=== PATIENT | female | born 1935 | race Caucasian/White ===

== ENCOUNTER 2017-10-11 10:54 | Outpatient (CLI) | payer MEDICARE, BC ==
--- NOTE | 2017-10-11 13:21 | XRAY Report ---
Procedure Date: 10/11/2017 Accession Number: [id number] / [id number] Procedure: XRS - Ribs w/PA Chest LT CPT Code: FULL RESULT: EXAM: Ribs w/PA Chest LT DATE: 10/11/2017 11:16 AM CLINICAL HISTORY: R07.81 COMPARISON: Chest x-ray 12/06/2013 TECHNIQUE: 1 view of the chest and 2 views of the ribs. FINDINGS: Bones: There is a nondisplaced fracture of the left ninth rib laterally. Some callus formation is present. Lungs: No focal opacities. No pneumothorax or pleural effusions. Mediastinum: Mild cardiomegaly. Stable left subclavian pacemaker. Other: None. IMPRESSION: Nondisplaced fracture of the left ninth rib laterally. No pneumothorax. RADIA
== END 2017-10-11 10:55 | disposition home or self-care (01) ==
LOC: DI.S 10:54
PROVIDERS: ATTEND Nurse Practitioner Family
DX: S22.32XA Fracture of one rib, left side, initial encounter for closed fracture (principal); R07.81 Pleurodynia; R10.9 Unspecified abdominal pain

== ENCOUNTER 2017-11-30 08:59 | Outpatient (CLI) | payer MEDICARE, BC | END 2017-11-30 09:00 | disposition home or self-care (01) | LOC: LAB.F 08:59 | PROVIDERS: ATTEND Registered Nurse | DX: I48.91 Unspecified atrial fibrillation (principal); E55.9 Vitamin D deficiency, unspecified; D75.1 Secondary polycythemia; R73.01 Impaired fasting glucose; G60.9 Hereditary and idiopathic neuropathy, unspecified; E02 Subclinical iodine-deficiency hypothyroidism; Z78.0 Asymptomatic menopausal state | CPT/HCPCS: 36415; 81599; 83735; 84630 ==

== ENCOUNTER 2018-01-24 14:07 | Outpatient (CLI) | payer MEDICARE, BC ==
--- NOTE | 2018-01-24 15:09 | XRAY Report ---
Reason: RT FOOT DIGIT SWELLING REDDNESS Procedure Date: 01/24/2018 Accession Number: [id number] / [id number] Procedure: XR - Foot 3 View RT CPT Code: FULL RESULT: EXAM: RIGHT FOOT RADIOGRAPHY EXAM DATE: 01/24/2018 02:24 PM. CLINICAL HISTORY: RT FOOT SWELLING REDDNESS. COMPARISON: 08/11/2006. TECHNIQUE: 3 views. FINDINGS: Bones: No fractures detail of the toes, particularly the second and third is poorly seen. Small plantar calcaneal spur Joints: Degenerative changes of the interphalangeal joints of the toes. Soft Tissues: Mild diffuse soft tissue swelling. Faint calcification adjacent to the medial first metatarsal head. IMPRESSION: Degenerative change right foot progressed since 08/11/2006. Detail of the toes, particularly the second and third, is poorly seen. If clinical symptoms are referable to the toes follow up by detailed plain films of the toes may be useful.
== END 2018-01-24 14:08 | disposition home or self-care (01) ==
LOC: DI 14:07
PROVIDERS: ATTEND Nurse Practitioner Family
DX: M19.071 Primary osteoarthritis, right ankle and foot (principal)

== ENCOUNTER 2018-01-25 15:06 | Outpatient (CLI) | payer MEDICARE, BC ==
--- NOTE | 2018-01-26 00:58 | XRAY Report ---
Reason: RIGHT TOE SWELLING AND PAIN Procedure Date: 01/25/2018 Accession Number: [id number] / [id number] Procedure: XR - Toe(s) RT CPT Code: FULL RESULT: EXAM: RIGHT TOE RADIOGRAPHY EXAM DATE: 01/25/2018 03:52 PM. CLINICAL HISTORY: RIGHT TOE SWELLING AND PAIN. COMPARISON: FOOT 3 VIEW RT 01/24/2018 2:14 PM. TECHNIQUE: 3 views. FINDINGS: Bones: Normal. No fracture or bone lesion. Joints: Normal. No subluxations. Soft Tissues: Moderate right second and third toe soft tissue swelling noted. No radiopaque foreign bodies are noted. IMPRESSION: 1. No fracture. 2. No malalignment. 3. No subcutaneous soft tissue emphysema. No radiopaque foreign bodies. Moderate right second and third toe swelling. 4. No radiographic findings concerning for osteomyelitis. RADIA
== END 2018-01-25 15:07 | disposition home or self-care (01) ==
LOC: DI 15:06
PROVIDERS: ATTEND Nurse Practitioner Family
DX: M79.674 Pain in right toe(s) (principal); R22.41 Localized swelling, mass and lump, right lower limb
CPT/HCPCS: 73660

== ENCOUNTER 2018-03-29 10:48 | Outpatient (CLI) | payer MEDICARE, BC | END 2018-03-29 10:49 | disposition short-term general hospital (02) | LOC: EMS 10:48 | PROVIDERS: ATTEND Surgery | DX: R06.02 Shortness of breath (principal); R07.81 Pleurodynia | CPT/HCPCS: A0425; A0427 ==

== ENCOUNTER 2018-06-15 12:17 | Outpatient (CLI) | payer MEDICARE, BC ==
[2018-06-15 12:41] LABS: CALCIUM 10.4 mg/dL (8.5-10.3)
== END 2018-06-15 12:18 | disposition home or self-care (01) ==
LOC: LAB 12:17
PROVIDERS: ATTEND Internal Medicine Cardiovascular Disease
DX: Z51.81 Encounter for therapeutic drug level monitoring (principal); Z79.899 Other long term (current) drug therapy
CPT/HCPCS: 36415; 80048

== ENCOUNTER 2018-12-13 16:23 | Emergency (ER) | payer MEDICARE, BC ==
[2018-12-13 16:48] VITALS: BP 132/76
--- NOTE | 2018-12-13 17:37 | XRAY Report ---
Reason: fall Procedure Date: 12/13/2018 Accession Number: [id number] / [id number] Procedure: XR - Knee 4 View LT CPT Code: FULL RESULT: EXAM: LEFT KNEE RADIOGRAPHY EXAM DATE: 12/13/2018 05:13 PM. CLINICAL HISTORY: Fall. COMPARISON: None. TECHNIQUE: 3 views. FINDINGS: Left total knee arthroplasty hardware in place. Components in good position. No hardware complications. No periprosthetic fractures. Diffuse decreased osseous mineralization subjectively. No significant soft tissue abnormalities identified radiographically. IMPRESSION: 1. No fractures or malalignment. 2. Left total knee arthroplasty in place without evidence of complications. 3. Diffuse decreased osseous mineralization subjectively. RADIA
--- NOTE | 2018-12-13 17:55 | ED Physician Documentation ---
PD HPI LOWER EXT INJURY - Stated complaint Stated Complaint: LT KNEE PX/RED/SWELL - Chief complaint Chief Complaint: Ext Problem - History obtained from History obtained from: Patient - History of Present Illness PD HPI LOW EXT INJURY LOCATION: Left, Knee Type of injury: Fall (she fell onto her left knee with bruise there and swelling. The bruising spread down front of leg and medial calf over next days. Has continued with swelling in anterior knee. Now with 1-2 days of redness and warmth, tender in anterior knee. Seen by PCP and referred to ER for further evaluation. Patient says knee hurts anteriorly with ROM.) Timing - onset: How many days ago (few) Timing - duration: Days (few) Timing - details: Abrupt onset (of the hematoma initially), Gradual onset (of diffuse bruising and now the redness anteriorly) Worsened by: Moving, Palpating Associated symptoms: Swelling, Discolored. No: Weakness, Numbness Contributing factors: Anticoagulated Similar symptoms before: Has not had sx before Recently seen: Clinic (went to clinic and referred to ER) Review of Systems Constitutional: denies: Fever, Chills, Myalgias Skin: denies: Abrasion (s), Laceration (s) Neurologic: denies: Focal weakness, Numbness, Altered mental status, Headache, Head injury PD PAST MEDICAL HISTORY - Past Medical History Past Medical History: Yes Cardiovascular: Hypertension, Coronary artery disease, CT - Past Surgical History Past Surgical History: Yes Cardiovascular: Coronary stent, Pacemaker - Present Medications Home Medications: Ambulatory Orders Medication Instructions Recorded Confirmed Fluticasone 44 Mcg [Flovent] 1 puffs INH BID 12/06/13 07/25/18 Losartan [Cozaar] 100 mg PO DAILY 12/06/13 07/25/18 Spironolactone 12.5 mg PO DAILY 12/06/13 07/25/18 Tiotropium [place] [Spiriva] 2 puffs INH DAILY 12/06/13 07/25/18 Aspirin [Adult Low Dose Aspirin EC] 1 tab PO DAILY 07/12/17 07/25/18 Rivaroxaban [Xarelto] 1 tab PO DAILY 07/12/17 07/25/18 Furosemide [Lasix] 40 mg PO DAILY 07/25/18 07/25/18 - Allergies Allergies/Adverse Reactions: Allergies Allergy/AdvReac Type Severity Reaction Status Date / Time alprazolam [From Xanax] Allergy Unknown Verified 12/13/18 16:48 - Social History Does the pt smoke?: No Smoking Status: Never smoker Does the pt drink ETOH?: No Does the pt have substance abuse?: No - Immunizations Immunizations are current?: Yes PD ED PE NORMAL - Vitals Vital signs reviewed: Yes - General General: Alert and oriented X 3, No acute distress, Well developed/nourished - HEENT HEENT: Atraumatic - Neck Neck: Supple, no meningeal sign, No bony TTP - Derm Derm: Normal color, Warm and dry - Extremities Extremities: Other (left knee with anterior swelling and tender with marked bruising. There is redness and warmth anteriorly in [place] around bursal area. Redness does not extend beyond that. Has warmth to it. No red streaks upward. There is nontender ecchymosis down anterior and medial to posterior aspect of lower leg as well, c/w gravity effect from the knee hematoma/bruise. There is no effusion of the knee joint itself. ) - Neuro Neuro: Alert and oriented X 3, No motor deficit, No sensory deficit Results - Vitals Vitals: Vital Signs - 24 hr 12/13/18 16:45 Temperature 36.6 C Heart Rate 73 Respiratory 18 Rate Blood Pressure 132/76 H O2 Saturation 86 L Oxygen O2 Source Room air - Labs Labs: Microbiology 12/13/18 18:38 Wound Culture - Preliminary Knee - Left - Rads (name of study) knee xray Radiology: Prelim report reviewed (knee replacement intact, no fractures. ), See rad report PD MEDICAL DECISION MAKING - ED course Complexity details: reviewed results (I tried aspirating from the prepatellar bursa but could not get out but 2 drops of dark blood, so c/w hematoma there. I did culture that. Seems c/w prepatellar inflammatory bursitis and not infection as the redness/warmth is localized roundly in the bursal area. ), considered differential (significant bruising around knee, and down to front of leg and calf area. There is hematoma feeling prepatellar area. There is localized redness and warmth in prepatellar area. No joint effusion, but has swelling/hematoma in prepatellar bursa. ), d/w patient Departure - Departure Disposition: 01 Home, Self Care Clinical Impression: Anticoagulant long-term use Accidental fall Qualifiers: Encounter type: initial encounter Qualified Code(s): W19.XXXA - Unspecified fall, initial encounter Traumatic hematoma of left knee Qualifiers: Encounter type: initial encounter Qualified Code(s): S80.02XA - Contusion of left knee, initial encounter Prepatellar bursitis Qualifiers: Laterality: left Qualified Code(s): M70.42 - Prepatellar bursitis, left knee Condition: Stable Record reviewed to determine appropriate education?: Yes Instructions: ED Bursitis, ED Hematoma Follow-Up: Carri Kate PA [Primary Care Provider] - Comments: I think this has the appearance of a inflammatory bursitis related to the injury and hematoma that you have. We will see if the culture shows any signs of infection over the next couple of days. I would treat it with an [place] wrap to reduce the swelling. Continue usual medications. Elevate and rested often. If in the next couple of days it does have further increasing swelling redness and particularly redness outside of the boundaries of the front of the knee, and certainly any fevers, then that would be more suspicious for infection and return for recheck. Discharge Date/Time: 12/13/18 18:56
[2018-12-13] MEDS ORDERED: LIDOCAINE MPF 1%-EPI 1:200000 30 ML VIAL SUBQ STA (18:11)
== END 2018-12-13 18:56 | disposition home or self-care (01) ==
LOC: ED 16:23
DX: M70.42 Prepatellar bursitis, left knee (principal); S80.02XA Contusion of left knee, initial encounter; W18.30XA Fall on same level, unspecified, initial encounter; Y93.01 Activity, walking, marching and hiking; Z79.01 Long term (current) use of anticoagulants; Z79.82 Long term (current) use of aspirin; I10 Essential (primary) hypertension; Z96.652 Presence of left artificial knee joint
CPT/HCPCS: 20610; 87070; 87205

== ENCOUNTER 2019-01-26 13:38 | Outpatient (CLI) | payer MEDICARE, BC ==
--- NOTE | 2019-01-26 14:32 | Mammography Report ---
Reason: L BREAST CANCER Procedure Date: 01/26/2019 Accession Number: [id number] / [id number] Procedure: VIKTOR - Diagnostic Dig Bilat CPT Code: FULL RESULT: EXAM: Diagnostic Dig Bilat DATE: 01/26/2019 2:15 PM CLINICAL HISTORY: Diagnostic examination. History of late childbearing and early menses. Personal history of breast cancer status post left breast lumpectomy in May of 2017. TECHNIQUE: (B) - Bilateral CC and MLO views were obtained. Left spot CC, left LM and left spot LM images are obtained. COMPARISON: 05/10/2017 through 07/05/2009. PARENCHYMAL PATTERN: (D) - The breast(s) demonstrate(s) heterogeneously dense fibroglandular parenchyma. FINDINGS: Interval postsurgical changes are seen in the left breast, probably benign. What is felt to represent cardiac pacemaker leads is partially seen projecting over the left chest wall. There are no suspicious masses, calcifications, or areas of distortion. IMPRESSION: Probably Benign. BI-RADS category 3. RECOMMENDATION: (6MOS) - Recommend 6 month follow-up exam. Left breast. BI-RADS CATEGORY: (3) - Probably Benign. STANDARD QUALIFYING STATEMENTS: 1. This examination was not reviewed with the aid of Computer-Aided Detection (CAD). 2. A negative or benign imaging report should not preclude biopsy if clinically suspicious findings are present. 3. Dense breasts may obscure an underlying neoplasm. 4. This examination was reviewed with the aid of 3D breast imaging (tomosynthesis).
== END 2019-01-26 13:39 | disposition home or self-care (01) ==
LOC: DI 13:38
PROVIDERS: ATTEND Internal Medicine Hematology & Oncology
DX: C50.912 Malignant neoplasm of unspecified site of left female breast (principal); Z95.0 Presence of cardiac pacemaker
CPT/HCPCS: 77066

== ENCOUNTER 2019-03-02 13:26 | Outpatient (CLI) | payer MEDICARE, BC ==
--- NOTE | 2019-03-03 21:34 | XRAY Report ---
Reason: PAIN IN LEFT FOOT Procedure Date: 03/02/2019 Accession Number: [id number] / [id number] Procedure: XRS - Foot 3 View LT CPT Code: Final Report FULL RESULT: EXAM: LEFT FOOT RADIOGRAPHY EXAM DATE: 03/02/2019 01:42 PM. CLINICAL HISTORY: Pain in left foot. COMPARISON: LT FOOT 11/30/2006 8:59 PM XR BILAT FOOT 3 VIEWS 08/11/2006 1:35 PM. TECHNIQUE: 3 views. FINDINGS: Bones: Normal. No fractures or bone lesions. Joints: Mild degenerative changes at the first metatarsophalangeal joint with joint space loss and small subchondral cyst and/or periarticular erosions. No subluxations. Soft Tissues: Normal. No soft tissue swelling. IMPRESSION: 1. No acute abnormality seen in the left foot. 2. Mild arthritic changes of the first MTP joint with questionable small periarticular erosions. Gout arthritis not excluded in the proper clinical setting. RADIA
== END 2019-03-02 13:27 | disposition home or self-care (01) ==
LOC: DI.S 13:26
PROVIDERS: ATTEND Physician Assistant
DX: M19.072 Primary osteoarthritis, left ankle and foot (principal)

== ENCOUNTER 2020-03-11 16:30 | Outpatient (CLI) | payer MEDICARE, BC ==
--- NOTE | 2020-03-11 17:08 | XRAY Report ---
PROCEDURE: Toe(s) LT INDICATIONS: PAIN OF TOE OF LEFT FOOT TECHNIQUE: AP view of the foot and 2 views of the second toe. COMPARISON: Left foot radiographs 03/02/2019 FINDINGS: Bones: There is stenosis osteopenia. Irregularity at the medial aspect of the second middle phalanx a nd the distal phalanx adjacent to the distal interphalangeal joint are suspicious for a minimally dis placed fractures in the setting of trauma. However, the second toe is held in flexion throughout the exam, which compromises evaluation. A small os naviculare is present. Soft tissues: No suspicious soft tissue densities. Soft tissue edema is seen in the second toe. IMPRESSION: Osseous irregularity at the medial aspect of the second middle and distal phalanges adjacent to the d istal interphalangeal joint is suspicious for minimally displaced fractures. Reviewed by: Yanick Singh MD on 03/11/2020 4:06 PM [facility] Approved by: Yanick Singh MD on 03/11/2020 4:06 PM [facility] Station ID: [id number]
== END 2020-03-11 16:31 | disposition home or self-care (01) ==
LOC: DI.S 16:30
PROVIDERS: ATTEND Physician Assistant
DX: R93.6 Abnormal findings on diagnostic imaging of limbs (principal)

== ENCOUNTER 2020-04-14 14:00 | Outpatient (CLI) | payer MEDICARE, BC ==
--- NOTE | 2020-04-14 18:00 | CONSULTATION NOTE ---
Palliative Care Consultation - Referral Referring Provider: Aleja DANGELO Time of Visit: [id number] Referral setting: Home Referral Reason: COPD/CHF/Breast CA - Information Sources Records reviewed: Previous records reviewed History/Review of Systems obtained from: Patient Exam limitations: No limitations - History of Present Illness Brief History of Present Illness: This is a germaine 84-year-old woman who presents with multiple comorbidities, most impacting her quality of life is her COPD and CHF. She has had ongoing functional decline over the last year, more acutely over the last several months. She has been impacted by 2 exacerbations of gout, and recently titrated off prednisone. She has been focusing on improving her underlying wellbeing, is currently on a nutritional supplement, with intentional weight loss of 10 pounds over 2 months. Her activity tolerance is most impacted by her dyspnea and tachycardia, she is oxygen dependent, and limited to sustained ambulation of 15 to 20 feet, needing frequent rest periods with stair climbing, but currently is still able to manage her ADLs with pacing. Patient recently had to give up driving, she does have neighbors/caregiver who provides support for errands and transportation particularly in the context of the pandemic. She does have 2 [place], [place], but, and provide her support frequently and stay. She does have 2 nieces who are close by, and identifies Melisa Mann as her DPOA. Palliative care meeting with patient for first time, to establish rapport, review symptom burden, and explore goals of care and advance care planning. Medical/Surgical History - Past Medical History Cardiovascular: reports: Congestive heart failure, Hypertension, Coronary artery disease, [place] ([place]stem[place] 2007), Atrial fibrillation Respiratory: reports: COPD, Sleep apnea, CPAP use Neuro: Peripheral neuropathy (idiopathic), Other (PHN) PAIRER SUBSTANDARD: reports: Breast cancer : reports: Incontinence, Renal insuffiency HEENT: reports: Chronic vision loss, Macular degeneration, Other (rhinitis) Musculoskeletal: reports: Osteoarthritis, Gout (recent exacerbation treate with prednisone), Other (recent left toe fx) MRSA Hx?: No Other Past Medical History: polycythemia; followed by Dr. Ward pulmonology; Dr. Ramos cardiology; Dr. Chavez oncology - Past Surgical History Ortho: reports: Knee replacement (both) /PAIRER SUBSTANDARD: reports: Other (lumpectumy left breast) Cardiovascular: reports: Coronary stent, Pacemaker, Other (cardiac ablation) Social History - Living Situation Living arrangement: At home Living Situation: Alone Support System: Patient lives independently in her home but she builds in [place], she has been on [facility] since [facility]. She came from the [facility] after her . 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 She does have nearby neighbors who to provide support, and frequent community support that checks on her. Family History - Family History Family History: Mother: , CVA/TIA (age 74), Hypertension, Father: , Cancer (colon ca 88), Sister: Alive and Well Family History Comment/Other: 2 daughters alive and well Medications/Allergies - Medications Home Medications: Ambulatory Orders Medication Instructions Recorded Confirmed Losartan [Cozaar] 100 mg PO DAILY 12/06/13 04/17/20 Spironolactone 12.5 mg PO DAILY 12/06/13 04/17/20 Tiotropium [place] [Spiriva] 2 puffs INH DAILY 12/06/13 04/17/20 Aspirin [Adult Low Dose Aspirin EC] 1 tab PO DAILY 07/12/17 04/17/20 Rivaroxaban [Xarelto] 15 mg PO DAILY 07/12/17 04/17/20 Furosemide [Lasix] 60 mg PO DAILY 07/25/18 04/17/20 Budesonide-Formoterol 1 puffs INH DAILY 04/17/20 - Allergies Allergies/Adverse Reactions: Allergies Allergy/AdvReac Type Severity Reaction Status Date / Time alprazolam [From Xanax] Allergy Unknown Verified 02/13/19 11:19 azithromycin [From Zithromax] Allergy Unknown Verified 04/17/20 06:53 warfarin Allergy Rash Verified 04/17/20 06:53 Review of Systems - Constitutional Constitutional: reports: Fatigue (persistent), Weight loss (intentinal 10 pounds). denies: Fever, Chills - Eyes Eyes: reports: Vision loss - Ears, Nose & Throat Ears, Nose & Throat: reports: Hearing loss (mild), Dry mouth. denies: Mouth lesions - Cardiovascular Cardiovascular: reports: Edema, Exertional dyspnea, Decr. exercise tolerance. denies: Chest pain - Respiratory Respiratory: reports: SOB at rest, SOB with exertion, Other (cpap). denies: Cough - Gastrointestinal Gastrointestinal: reports: Good appetite. denies: Constipation, Nausea - Genitourinary Genitourinary: reports: Incontinence - Musculoskeletal Musculoskeletal: reports: Stiffness, Muscle weakness - Integumentary Integumentary: reports: Dryness - Neurological Neurological: reports: General weakness, Memory problems (min STM), Other (PHN right arm/side) - Psychiatric Psychiatric: denies: Depression, Anxiety - All Other Systems All Other Systems: reports: Reviewed and negative Physical Exam - Vital Signs Temperature: 96.7 C Pulse Rate: 71 Respiratory Rate: 18 (22 with conversation) O2 Saturation: 98 (2 liters) Blood Pressure: 117/68 - Physical Exam General Appearance: positive: No acute distress, Alert Eyes Bilateral: positive: Normal inspection ENT: positive: No signs of dehydration Neck: positive: Trachea midline Cardiovascular: positive: Regular rate & rhythm Respiratory: positive: Diminished throughout, Rales (fine crackles LLL). negative: No respiratory distress (with activity/conversation noted increase respiratory rate), Wheezes Abdomen: positive: Non-tender, Soft Skin: positive: Pallor Extremities: positive: Pedal edema Neurologic/Psychiatric: positive: Oriented x3, Mood/affect nml Palliative Care - POLST Patient has POLST: Yes POLST Status: DNR (reviewed; filled out 2018 remains pertinent), Selective Treatment Pain: Pain unchanged, Location (right PHN arm/side) Tiredness/Fatigue: Moderate (4-6) Drowsiness/Sedation: None Nausea: None Anorexia: None Dyspnea: Severe (7-10) Depression: None Anxiety: None Feelings of wellbeing/Perceived Quality of Life: Good, Acceptable Sleep: Sleeps well Constipation: No Performance Status: Prior to the pandemic, patient was attending [employer] low-impact gym class. She has been quite sedentary, hoping to engage in home exercise program. She does need to pace herself with any kind of ambulation or activity. She is quite sedentary overall. She has in the past has done yoga, is interested in restarting this. She remains quite active mentally, taking classes, and continuing with her TCM practice - Palliative Care Discussion: Patient is quite delightful and engaged, though presents with low symptom burden other than severe dyspnea. We did discuss patient's current quality of life, has been impacted by the pandemic, and isolation. She has had declining functional status, but is hoping to improve her activity tolerance. Patient does have POLST, as DN AR/DNI and selective treatments. She was unable to locate her DPOA/healthcare directives. She does identify though her niece Melisa Mann [phone]. Counseling provided regarding need to have this in her medical record and on file for any emergent or urgent need entering into the medical system. She has not really thought about her impending decline, she does have long-term care insurance and starting to try and use this for support. She is quite clear she does not want any extended suffering or "heroic measures". Though patient has had slow functional decline, has not had any acute hospitalizations or infections. Agreed will continue to explore and further define plan of care and future visits. Results - Lab Results Lab results reviewed: Yes Impression and Recommendations - Palliative Care Impression: This is a delightful 84-year-old woman who has multiple comorbidities of COPD, CHF, recent gout, and history of left breast cancer. Patient is interested in improving underlying wellbeing, as well as advanced care planning. Palliative care to provide support for symptom management, quality of life issues, and anticipatory guidance and advanced care planning. Recommendations/Counseling Done: 1. COPD. Patient is managed by her non destructive evaluation manager, she is very much limited though by her dyspnea both for her activity and her quality of life issues. Counseling provided regarding progressive exercise program, including adding small weights, incorporating her yoga, and counseling provided regarding incentive spirometer use. Patient may be a candidate for pulmonary rehab in the future if activity intolerance improves. 2. CHF. Patient is followed by Dr. Ramos, patient has had weight loss has intermittent dizziness. Blood pressure today 117/68, she has had her furosemide pushed up to 60 mg in the last 6 months. Patient presents with very little edema, only few small crackles in her left lower lobe otherwise clear. Recommended in following up as may need medications adjusted based on weight loss, labs, patient does have history of renal insufficiency. Recommended she keep a blood pressure record 3 times a week as well as weights daily. 3. Left breast cancer. Patient is due to follow-up with mammogram, she does have this scheduled. 4. Care planning. Patient presents with low symptom burden, agreed though to continue to work on end-of-life care planning, will get current POLST to [place] M. Recommended find DPOA as we will need to have this on record as well. Will review and update documents with next home visit. Time Spent: 75 minutes with greater than 50% of this done in counseling regarding disease, disease trajectory, role of palliative care, symptom management, wellbeing behaviors, and anticipatory guidance
== END 2020-04-14 14:01 | disposition home or self-care (01) ==
LOC: PC 14:00
PROVIDERS: ATTEND Nurse Practitioner Adult Health
DX: Z51.5 Encounter for palliative care (principal); J44.9 Chronic obstructive pulmonary disease, unspecified; I11.0 Hypertensive heart disease with heart failure; I50.9 Heart failure, unspecified; N28.9 Disorder of kidney and ureter, unspecified; Z85.3 Personal history of malignant neoplasm of breast; Z99.81 Dependence on supplemental oxygen; Z79.899 Other long term (current) drug therapy; Z66 Do not resuscitate
CPT/HCPCS: 99345

== ENCOUNTER 2020-04-24 11:38 | Outpatient (CLI) | payer MEDICARE, BC ==
--- NOTE | 2020-04-25 07:41 | Mammography Report ---
BILATERAL DIGITAL DIAGNOSTIC MAMMOGRAM 3D/2D: 04/24/2020 CLINICAL: Post left lumpectomy. Comparison is made to exams dated: 01/26/2019 mammogram - [facility], 04/13/2017 jessica mogram - [facility], and 07/05/2009 mammogram - [facility]. The tissu e of both breasts is predominantly fatty. There are benign post operative findings in the left breast. No significant masses, calcifications, or other findings are seen in either breast. There has been no significant interval change. IMPRESSION: BENIGN There is no mammographic evidence of malignancy. A 1 year screening mammogram is recommended. This exam was interpreted at Station ID: [id number]. NOTE: For mammograms, a report in lay terms will be sent to the patient. Approximately 15% of breast malignancies will not be visualized mammographically. In the management of a palpable breast mass, a negative mammogram must not discourage biopsy of a clinically suspicious lesion. Electronically Signed By: Dontrell Lozano acr/penrad:04/24/2020 13:04:42 ACR BI-RADS Category 2: Benign Finding(s) 3342F PARENCHYMAL PATTERN: (F) - The breast(s) demonstrate(s) diffuse fatty replacement. BI-RADS CATEGORY: (2) - 2 RECOMMENDATION: (ANNUAL) - Recommend routine annual screening mammography. [id number] 1 year screening LATERALITY: (B)
== END 2020-04-24 11:39 | disposition home or self-care (01) ==
LOC: DI 11:38
PROVIDERS: ATTEND Internal Medicine Hematology & Oncology
DX: Z08 Encounter for follow-up examination after completed treatment for malignant neoplasm (principal); Z85.3 Personal history of malignant neoplasm of breast

== ENCOUNTER 2020-07-10 18:27 | Outpatient (CLI) | payer MEDICARE, BC | END 2020-07-10 18:28 | disposition left against medical advice (07) | LOC: EMS 18:27 | DX: R06.02 Shortness of breath (principal) ==

== ENCOUNTER 2020-07-14 17:32 | Outpatient (CLI) | payer MEDICARE, BC ==
--- NOTE | 2020-07-14 18:57 | XRAY Report ---
PROCEDURE: Chest 2 View X-Ray INDICATIONS: DYSPNEA, UNSPECIFIED TECHNIQUE: 2 view(s) of the chest. COMPARISON: None. FINDINGS: Surgical changes and devices: Left chest wall pacer device lead is seen in the region of right ventri nida. Lungs and pleura: No pleural effusions or pneumothorax. Lungs are clear. Mediastinum: Mediastinal contours are normal. Heart size is normal. Bones and chest wall: No suspicious bony abnormalities. Soft tissues appear unremarkable. IMPRESSION: No acute cardiopulmonary pathology. Reviewed by: Emre Patel MD on 07/14/2020 6:55 PM PDT Approved by: Emre Patel MD on 07/14/2020 6:55 PM PDT Station ID: [id number]
== END 2020-07-14 17:33 | disposition home or self-care (01) ==
LOC: DI.S 17:32
PROVIDERS: ATTEND Registered Nurse
DX: R06.00 Dyspnea, unspecified (principal)

== ENCOUNTER 2020-09-15 12:46 | Outpatient (CLI) | payer MEDICARE, BC ==
--- NOTE | 2020-09-16 16:07 | DEXA Report ---
PROCEDURE: Dexa Spine and/or Hip INDICATIONS: POSTMENOPAUSAL TECHNIQUE: Dual energy x-ray absorptiometry (DXA) was performed on a [employer] System. Regions measur ed are the AP Spine, femoral neck, and if needed forearm. COMPARISON: 06/21/2017 similar study.. FINDINGS: Lumbar Spine: Bone Mineral Density 1.251 g/cm/cm,T score 0.6, normal and this represents a statistically insigni ficant increase in bone mineral density by 3.7%. Left Hip: Bone Mineral Density 0.833 g/cm/cm,T score -1.4, osteopenia, and this represents a statistically sig nificant 6.5% reduction in bone mineral density over the left hip region overall. Left Femoral Neck: Bone Mineral Density 0.766 g/cm/cm, T score -2.0, osteopenia (T score greater or equal to -1.0: NORMAL) (T score from -1.1 to -2.4: OSTEOPENIA) (T score less than or equal to -2.5 to: OSTEOPOROSIS) Impression: Normal bone mineral density at the lumbosacral spine, and osteopenia is present currently at the left femoral neck and left hip overall with a statistically significant 6.5% reduction in bon e mineral density of the left hip when compared to the prior study from 2018. Patients with diagnosis of osteoporosis or osteopenia should have regular bone mineral density assess ment. For those eligible for Medicare, routine testing is allowed once every 2 years. Testing frequ ency can be increased for patients who have rapidly progressing disease or for those who are receivin g medical therapy to restore bone mass. Reviewed by: Luis Pace MD on 09/16/2020 4:06 PM PDT Approved by: uLis Pace MD on 09/16/2020 4:06 PM PDT Station ID: [id number]
== END 2020-09-15 12:47 | disposition home or self-care (01) ==
LOC: DI 12:46
PROVIDERS: ATTEND Internal Medicine Hematology & Oncology
DX: M85.89 Other specified disorders of bone density and structure, multiple sites (principal)

== ENCOUNTER 2021-03-18 14:00 | Outpatient (CLI) | payer MEDICARE, BC ==
--- NOTE | 2021-03-18 19:10 | CONSULTATION NOTE ---
Palliative Care Consultation - Referral Referring Provider: Aleja DANGELO Time of Visit: 3150-1366 Referral setting: Home Referral Reason: Advanced COPD/Generalized weakness - Information Sources Records reviewed: Previous records reviewed History/Review of Systems obtained from: Patient Exam limitations: No limitations - History of Present Illness Brief History of Present Illness: This is an 85-year-old woman with advanced COPD and known CHF. Unfortunately on arrival the power is out, she is quite hypoxic at 77%, unclear if her portable concentrator is working. We did get her on a tank, at 3 L after 5 minutes, with still 88%. Did increase it to 4 L with 92%, patient had been with perioral cyanosis, as well as fingers, did resolve. We discussed patient's current status in the context of her perceived ongoing decline. She is thinking about moving "downstairs" though is having difficulty thinking about this as far as giving up her independence. She can though only walk 10 to 15 feet without needing to rest, and recover. Patient is reporting fairly low numbers in the 70s, when she is ambulating around and "resting" to go upstairs. She reports she gets quite tachycardic as well, but denies any chest pain. Patient denies any wheezing, cough, productive sputum, she has been doing some interesting dosing with her prednisone, going 5 mg every other day, because she perceives it interferes with her sleep. Patient reports she has lost about 30 pounds, has anorexia, early satiety, and in crease difficulty standing for long periods of time secondary to back discomfort and poor activity tolerance. 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 Lozada. Patient is on Xarelto, has multiple bruising, and concerned about drug interactions. She is on multiple multiple supplements, looks like she takes between 8 and 10 daily. Along with her regular medications. Did discuss with her concern for interactions, and to remind motor electrician to check interactions. Patient is trying to navigate accessing her long-term care insurance, she does have a germaine young neighbor who does help her with shopping, errands, and household tasks. She does perceive herself as declining, and wanting to explore further advanced care planning. Patient denies depression or anxiety, does have some feelings of loss and grief regarding her independence. She is quite annoyed currently with the power outage, her neighbors are trying to find her a generator. Patient had had a palliative care consult in April 2020, she had not wanted any further follow-up, but requested recently a new referral for worsening symptom burden, and advanced care planning. 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 BALL MARKER: reports: Breast cancer : reports: Incontinence, Renal insuffiency HEENT: reports: Chronic vision loss, Macular degeneration, Other (rhinitis) Psych: denies: Depression, Anxiety Musculoskeletal: reports: Osteoarthritis, Gout (hx), Chronic back pain Derm: reports: Other (rash) MRSA Hx?: No - Past Surgical History Ortho: reports: Knee replacement (both) /GOLF BALL MARKER: reports: Other (lumpectumy left breast) Cardiovascular: reports: Coronary stent, Pacemaker, Other (cardiac ablation) Social History - Living Situation Living arrangement: At home Living Situation: Alone Support System: Patient continues to live in her home, patient actually created her laying out. She has been on [facility] since 2001, she came from the [facility] after her . 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 Her neighbor Sunshine does some transportation and grocery shopping for her. She has a niece nearby she can call if needs assistance more acutely. She has 2 daughters, they do visit intermittently but are on the [facility] Family History - Family History Family History: Mother: , CVA/TIA (age 74), Father: , Cancer (colon at 88), Sister: , Alzheimer's Disease Medications/Allergies - Medications Home Medications: Ambulatory Orders Medication Instructions Recorded Confirmed Losartan [Cozaar] 100 mg PO DAILY 12/06/13 03/18/21 Spironolactone 12.5 mg PO DAILY 12/06/13 03/18/21 Tiotropium Reedley [Spiriva] 2 puffs INH DAILY 12/06/13 03/18/21 Aspirin [Adult Low Dose Aspirin EC] 1 tab PO DAILY 07/12/17 03/18/21 Rivaroxaban [Xarelto] 15 mg PO DAILY 07/12/17 03/18/21 Furosemide [Lasix] 40 mg PO DAILY 07/25/18 03/18/21 Budesonide-Formoterol 1 puffs INH DAILY 04/17/20 03/18/21 Metoprolol Succinate [Toprol Xl] 25 mg PO DAILY 03/18/21 03/18/21 Prednisone [Osvaldo] 5 mg PO DAILY 03/18/21 03/18/21 - Allergies Allergies/Adverse Reactions: Allergies Allergy/AdvReac Type Severity Reaction Status Date / Time alprazolam [From Xanax] Allergy Unknown Verified 11/03/20 17:38 azithromycin [From Zithromax] Allergy Unknown Verified 11/03/20 17:38 warfarin Allergy Rash Verified 11/03/20 17:38 Review of Systems - Constitutional Constitutional: reports: Fatigue (worsening), Weakness, Poor appetite, Weight loss (reports 30 pounds this last year). denies: Fever, Chills - Eyes Eyes: reports: Vision loss - Ears, Nose & Throat Ears, Nose & Throat: reports: Hearing loss (mild), Dry mouth. denies: Mouth lesions - Cardiovascular Cardiovascular: reports: Lightheadedness, Exertional dyspnea, Decr. exercise tolerance, Orthopnea. denies: Chest pain - Respiratory Respiratory: reports: SOB at rest, SOB with exertion, Other (cpap). denies: Cough - Gastrointestinal Gastrointestinal: reports: Poor appetite, Early satiety. denies: Constipation, Nausea - Genitourinary Genitourinary: reports: Incontinence - Musculoskeletal Musculoskeletal: reports: Back pain, Stiffness, Muscle weakness - Integumentary Integumentary: reports: Rash (tinea corpis per PCP), Pruritis, Dryness - Neurological Neurological: reports: General weakness, Memory problems (min STM), Other (PHN right arm/side) - Psychiatric Psychiatric: denies: Depression, Anxiety - Hematologic/Lymphatic Hematologic/Lymph: denies: Recurrent infections - All Other Systems All Other Systems: reports: Reviewed and negative Physical Exam - Vital Signs Temperature: 97.3 C Pulse Rate: 75 Respiratory Rate: 18 O2 Saturation: 92 (with titration of oxygen to 4 liters; acutely; down to 3 liters with 90) Blood Pressure: 122/72 - Physical Exam General Appearance: positive: Alert, Mild distress (on arrival no power and oxygen off) Eyes Bilateral: positive: Normal inspection ENT: positive: No signs of dehydration Neck: positive: Trachea midline Cardiovascular: positive: Regular rate & rhythm Respiratory: positive: Diminished throughout, Rales (fine crackles LLL). negative: No respiratory distress (with activity/conversation noted increase respiratory rate), Wheezes Abdomen: positive: Non-tender, Soft Skin: positive: Pallor, Rash (left flank back area appears psoratic in nature with silver scales; candidasis under breasts) Extremities: positive: No pedal edema Neurologic/Psychiatric: positive: Oriented x3, Mood/affect nml, Weakness Palliative Care - POLST Patient has POLST: Yes POLST Status: DNR, Selective Treatment Pain: Pain unchanged, Location (lower back with prolonged standing) Tiredness/Fatigue: Severe (7-10) Drowsiness/Sedation: Mild (1-3) Nausea: None Anorexia: Moderate (4-6), Weight loss Dyspnea: Severe (7-10) Depression: None Anxiety: Mild (1-3) Feelings of wellbeing/Perceived Quality of Life: Fair, Acceptable, Worsening Sleep: Variable sleep pattern Constipation: No Performance Status: Patient reports declining functional status, needing more frequent rests, unable to stand for long periods of time for meal prep. She is having increased difficulty with bathing, most difficult task is actually washing her hair. Causes increased shortness of breath and distress for her. She is needing more assistance overall, though remains quite independent and resistant to hiring someone for personal care. That we reviewed her long-term care insurance patient actually does need standby assist and supervision secondary to her dyspnea and declining strength. - Palliative Care Discussion: Patient is a delightful 85-year-old woman who continues to explore her decline and how best to prepare for it. She is somewhat perplexed by her long-term care insurance, we did review this at length and how she might access it along with the forms. 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 Patient has very little insight as far as what to expect with her pending decline, in the context of expected disability, increased care needs, and managing her worsening COPD. When asked patient what her perception is, she thinks she has less than 2 years, though description of her declining functional status and concerned more likely to have a quicker decline in this. She is hopeful to be able to at home, and is familiar with hospice from her experience with her sister as well as her . Patient does have a POLST in place with DNR/DNI and selective treatments. She does identify her niece Melisa Mann [phone] as her DPOA. Her daughters are coming out in April, would like to have a bigger discussion regarding end-of-life and how best to support her. Impression and Recommendations - Palliative Care Impression: This is a delightful 85-year-old woman has multiple comorbidities of COPD, CHF, history of left breast cancer. Patient continues to decline functionally attributed both to muscle weakness as well as worsening dyspnea, and presenting today with hypoxia. Patient has had a 30 pound weight loss over the last year, has anorexia, denies anxiety or depression. Palliative care providing support regarding dyspnea, disease education, symptom management, psychosocial support, and anticipatory guidance. Recommendations/Counseling Done: 1. COPD. Patient is managed by her acoustical tile patternmaker, but she is very much limited through her her dyspnea. She does present acutely with hypoxia today secondary to power outage. Patient appears to have been experiencing a low oxygen sats at 3 L, particularly with any kind of activity. Patient with very little insight need to keep her O2 sats at least 88% or above, preferred 90%. We did discuss in the context of activity, if she were able to particularly for prolonged activity to increase it short-term at least to 4 L. Requested her to monitor th is a little bit more closely, particularly in the context of her fatigue may improve some. Patient also with misconceptions regarding prednisone, she reports her acoustical tile patternmaker told her to use it to feel better. She has been intermittently dosing, discussed prednisone works most of effectively if taken on a regular basis, she does feel like it impacts her sleep. She does have some fine dry crackles, no extensive wheezing. Recommended 5 mg on a daily basis first every other day and to be sure and take it with food given her risk for bleeding with Xarelto. Patient verbalized understanding. 2. CHF. Patient has not seen her rock lather Dr. Street for a while, she has had continued weight loss. She is on some new metoprolol succinate versus last time. At this point in time she does not present with any symptoms of fluid overload. Does appear well controlled. Left breast cancer history. Patient is due for follow-up again in April. 4. Rash. It does appear she has 2 types of rash, one on the left flank, has silver scaly scales appears closer to his psoriasis. She has been using an antifungal on it, she cannot reach it is part of the problem, and does cause her some pruritus. She does have candidiasis under her breast. Discussed needs to consistently use ointment. We will continue to monitor, may need more of a topical steroid. 5. Advanced care planning. Patient does have POLST with DNR/DNI and selective treatments. Patient most likely would benefit from an updated POLST and discussion, her daughters are coming in April, will revisit this them. 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 She does feel like she is got good support, we did review how to use the forms and her long-term care insurance. Recommended she send this in sooner than later, and if still having trouble, could request some help from the medical palliative care sr. social media & mobile manager. Did recommend patient get [employer] booster, she reports she can get out, given her 2 numbers for calling to make an appointment says she cannot facilitate this online. Discussed palliative care support, patient is fiercely independent, will revisit when daughters come early April, patient though in the meantime has been instructed to call if worsening symptoms. Am concerned regarding her persistent breathlessness and decline, most likely could meet criteria for hospice if have another data point to measure against. She has declined significantly over this last year, will continue to monitor. Maude Index:This index looks that population of the community dwelling adults age 65 and older looking at outcome of all cause 1 year mortality. Patient score is an 8. This puts her at 36.5% of risk of 1 year mortality. This risk calculators sorts patients who have from patients who lived correctly 79% of the time 75 minutes with greater than 50% of this done in counseling regarding symptom management, management of hypoxia, need to monitor oxygen levels. Counseling provided regarding advance care planning, and anticipatory guidance. We will continue to follow patient, establishing rapport, will need long-term plan as she continues to decline
== END 2021-03-18 14:01 | disposition home or self-care (01) ==
LOC: PC 14:00
PROVIDERS: ATTEND Nurse Practitioner Adult Health
DX: Z51.5 Encounter for palliative care (principal); R09.02 Hypoxemia; J44.9 Chronic obstructive pulmonary disease, unspecified; T38.0X6A Underdosing of glucocorticoids and synthetic analogues, initial encounter; Z91.138 Patient's unintentional underdosing of medication regimen for other reason; I11.0 Hypertensive heart disease with heart failure; I50.9 Heart failure, unspecified; Z79.01 Long term (current) use of anticoagulants; Z85.3 Personal history of malignant neoplasm of breast; R21 Rash and other nonspecific skin eruption; B37.2 Candidiasis of skin and nail; Z66 Do not resuscitate
CPT/HCPCS: 99350

== ENCOUNTER 2021-04-09 09:30 | Outpatient (CLI) | payer MEDICARE, BC ==
--- NOTE | 2021-04-09 16:12 | CONSULTATION NOTE ---
Palliative Care Follow Up - Referral Referring Provider: Nay DANGELO Time of Visit: Referral setting: Home Referral Reason: Advanced COPD/chronic respiratory failure - Information Sources Records reviewed: Previous records reviewed History/Review of Systems obtained from: Patient Exam limitations: No limitations - History of Present Illness Update Brief HPI Update: This is an 85-year-old woman with known advanced COPD and CHF. Patient has continued to decline as far as her activity tolerance and ability to manage her dyspnea. She recently has had difficulty with failure of her Inogen, limiting her ability to leave the home because of need for her oxygen support. Patient has been fluctuating as far as use of prednisone, has been using 5 mg, is wondering if would benefit from increased to 10 mg as she has had improvement in the past in the context of medicating her gout. She does get quite tight and wheezy, and presents today with fine crackles in her left lower lobe, and expiratory dry scattered wheezes throughout. She has a dry cough though she reports it is sometimes productive with yellow to white sputum. She continues to pace herself in the context of her chronic respiratory failure, and worsening numbers. *Patient needs [id number] for her oxygen, testing on 3 1/2 liters at rest on arrival was 93%, did remove oxygen within minutes, patient sats dropped to 85% at rest without oxygen on room air. Without oxygen and on room air and ambulation she drops to 80%, this was a distance of less than 20 feet. With increased respiratory drive and effort. Replace oxygen at 3-1/2, it took 4-1/2 minutes for her to recover to 90%. This was by nasal cannula. After another 3- 1/2 minutes her O2 sats were 93% with oxygen at 4 liters. *I am ordering home O2 at 3-1/2 L at rest, and 4 to 5 L with activity or ambulation to keep oxygen saturations to above 90%. Patient remains quite independent, her concentrator and bedroom are upstairs. There has been conversation about moving everything downstairs because of her limited activity tolerance and hypoxic state with ambulation or activity. She does watch her oximeter, and takes frequent rests. She does not continue until her oxygens are above 90% and ambulates 5 to 10 feet at a time. Patient does recognize she is moving into "another phase". She does support her self through Ayrudic medicine and multiple supplements by head teacher Dr. Jagjit proctor. Patient is on Xarelto, with multiple areas of bruising, and continued concerns regarding drug interactions. She has had some "urping" with her a.m. meds. Denies persistent nausea or signs or symptoms of GI bleeding. She reports she has lost 30 pounds with early satiety and over time. Past Medical History: Congestive heart failure, hypertension, coronary artery disease, [place] with N STEMI 2007, atrial fib on Xarelto, COPD, sleep apnea, CPAP use, headaches, peripheral neuropathy idiopathic, pH and right chest area, history of breast cancer, incontinence, renal insufficiency, chronic vision loss, macular degeneration, rhinitis, depression, anxiety, osteoarthritis, gout, chronic back pain, persistent rash Social History - Living Situation Living arrangement: At home Living Situation: Alone Support System: Patient does live by herself, continues in her own home. She actually planned her own house. She has been on [facility] since 2001, she came from [facility] after her . 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 She very much enjoys just observing and sitting at her windows. Her neighbor Sunshine they have been using her and attempts to access her long-term care insurance. She does have 2 daughters, they are coming soon from the [facility] and would like to meet with palliative care. Medications/Allergies - Medications Home Medications: Ambulatory Orders Medication Instructions Recorded Confirmed Losartan [Cozaar] 100 mg PO DAILY 12/06/13 04/09/21 Spironolactone 12.5 mg PO DAILY 12/06/13 04/09/21 Tiotropium Sultan [Spiriva] 2 puffs INH DAILY 12/06/13 04/09/21 Aspirin [Adult Low Dose Aspirin EC] 1 tab PO DAILY 07/12/17 04/09/21 Rivaroxaban [Xarelto] 15 mg PO DAILY 07/12/17 04/09/21 Furosemide [Lasix] 40 mg PO DAILY 07/25/18 04/09/21 Budesonide-Formoterol 1 puffs INH DAILY 04/17/20 04/09/21 Metoprolol Succinate [Toprol Xl] 25 mg PO DAILY 03/18/21 04/09/21 Prednisone [Osvaldo] 10 mg PO DAILY 03/18/21 04/09/21 Albuterol Sulf [Ventolin Hfa 1 - 2 puffs INH Q4HR PRN 04/09/21 04/09/21 Inhaler] Omeprazole Magnesium 20 mg PO DAILY 04/09/21 04/09/21 - Allergies Allergies/Adverse Reactions: Allergies Allergy/AdvReac Type Severity Reaction Status Date / Time alprazolam [From Xanax] Allergy Unknown Verified 11/03/20 17:38 azithromycin [From Zithromax] Allergy Unknown Verified 11/03/20 17:38 warfarin Allergy Rash Verified 11/03/20 17:38 Review of Systems - Constitutional Constitutional: reports: Fatigue (worsening), Weakness, Poor appetite. denies: Fever, Chills - Eyes Eyes: reports: Vision loss - Ears, Nose & Throat Ears, Nose & Throat: reports: Hearing loss (mild), Dry mouth. denies: Mouth lesions - Cardiovascular Cardiovascular: reports: Lightheadedness, Exertional dyspnea, Decr. exercise tolerance, Orthopnea. denies: Chest pain - Respiratory Respiratory: reports: SOB at rest, SOB with exertion, Other (cpap). denies: Cough - Gastrointestinal Gastrointestinal: reports: Poor appetite, Early satiety. denies: Constipation, Nausea - Genitourinary Genitourinary: reports: Incontinence - Musculoskeletal Musculoskeletal: reports: Back pain, Stiffness, Muscle weakness - Integumentary Integumentary: reports: Rash (reports on buttocks), Pruritis, Dryness - Neurological Neurological: reports: General weakness, Memory problems (min STM), Other (PHN right arm/side) - Psychiatric Psychiatric: denies: Depression, Anxiety - Hematologic/Lymphatic Hematologic/Lymph: denies: Recurrent infections - All Other Systems All Other Systems: reports: Reviewed and negative Physical Exam - Vital Signs Temperature: 97.3 C Pulse Rate: 72 Respiratory Rate: 18 Blood Pressure: 132/80 - Physical Exam General Appearance: positive: No acute distress, Alert Eyes Bilateral: positive: Normal inspection ENT: positive: No signs of dehydration Neck: positive: Trachea midline Cardiovascular: positive: Regular rate & rhythm Respiratory: positive: Diminished throughout, Rales (fine crackles LLL; mild dry exp scatter crackles throughout). negative: No respiratory distress (with activity/conversation noted increase respiratory rate), Wheezes Abdomen: positive: Non-tender, Soft, Obese Skin: positive: Pallor, Rash Extremities: positive: No pedal edema Neurologic/Psychiatric: positive: Oriented x3, Mood/affect nml, Weakness Palliative Care - POLST Patient has POLST: Yes POLST Status: DNR, Selective Treatment Pain: No pain Tiredness/Fatigue: Moderate (4-6) Drowsiness/Sedation: None Nausea: None (does experience some "urping" with am meds) Anorexia: Mild (1-3) Dyspnea: Moderate (4-6) Depression: None Anxiety: None Feelings of wellbeing/Perceived Quality of Life: Fair, Acceptable, Worsening Sleep: Sleeps well Constipation: No Performance Status: Patient continues to be limited by her dyspnea and hypoxia. Finding bathing more difficult, particularly in washing her hair care. She is discussing having Sunshine provide more help with her. She has difficulty standing for long periods of time for meal prep. She is finding herself needing more assistance overall and has been allowing Sunshine to do more for her. - Palliative Care Discussion: Patient wants to remain fiercely independent, but is declining and difficulty recognizing this. Patient does have a POLST in place with DNR/DNI and selective treatments and identifies her niece Melisa [phone] as her DPOA. We did discuss in the context of transition to this new place, concern for safety and accommodation. She denies any fear or concern and believes she will have a peaceful passing. She denies anxiety or depression and continues to have a curiosity about the what is next. She would like to have a family meeting with her daughter's father here, to discuss the continuum of care and what her wishes are. Impression and Recommendations - Palliative Care Impression: This is a delightful 85-year-old woman with multiple comorbidities of COPD, CHF, history of left breast cancer. She continues to decline functionally attributed both to muscle weakness as well as worsening dyspnea, and chronic respiratory failure. Patient has had a 30 pound weight loss over the last year, with mild anorexia, denies anxiety or depression. Palliative care providing support regarding anticipatory guidance, symptom management and psychosocial support Recommendations/Counseling Done: 1. Advanced COPD. Patient does have significant hypoxia without oxygen, or desats quickly with any kind of activity. Counseling provided regarding pacing activities, does have difficulty training of oxygen for activity secondary concentrator is upstairs. She is hoping to get her Inogen replaced to be able to be more responsive to fluctuating oxygen levels. Patient with scattered wheezes, does feel better on higher doses of prednisone. Had been originally prescribed prednisone 10 mg, will trial this to see if improvement, given high risk medications of Xarelto/aspirin and prednisone, will prescribe omeprazole 20 mg for stomach protection. [id number] done for oxygen requirements. 2. Advanced care planning. Patient does have POLST with DN AR/DNI in place with selective treatments. Counseling provided regarding the continuum of care, progression of her current disease state, addressed questions regarding managing currently. Gently recommend may want to start thinking about moving and living quarters downstairs, she does want to remain independent. She does perceive her quality of life though declining, is acceptable currently, would like support and plan made for family meeting when her daughters are here in April. 60 minutes with greater than 50% of this done in counseling regarding management of dyspnea, symptom management, weighing benefits and burdens of medications, initiation of omeprazole, [id number] for oxygen, and anticipatory guidance
== END 2021-04-09 09:31 | disposition home or self-care (01) ==
LOC: PC 09:30
PROVIDERS: ATTEND Nurse Practitioner Adult Health
DX: Z51.5 Encounter for palliative care (principal); J44.9 Chronic obstructive pulmonary disease, unspecified; R09.02 Hypoxemia; Z99.81 Dependence on supplemental oxygen; Z79.01 Long term (current) use of anticoagulants; Z66 Do not resuscitate
CPT/HCPCS: 99354; 99355

== ENCOUNTER 2021-04-27 09:30 | Outpatient (CLI) | payer MEDICARE, BC ==
--- NOTE | 2021-04-27 17:46 | CONSULTATION NOTE ---
Palliative Care Follow Up - Referral Referring Provider: Aleja DANGELO Time of Visit: Referral setting: Home Referral Reason: Advanced COPD/CHF/Goals of Care - Information Sources Records reviewed: Previous records reviewed History/Review of Systems obtained from: Patient, Family (daughter Sada present visitng; daughter Hillary on phone) Exam limitations: Clinical condition (mild STM deficits) - History of Present Illness Update Brief HPI Update: This is an 86-year-old woman with known advanced COPD and CHF. She is continued decline as far as her activity tolerance and ability to manage her hypoxia. Patient tends to be slightly forgetful, and covers well. Patient is wanted to trial 10 mg of prednisone, now reports is taking 5 mg daily. She continues with significant breathlessness with any activity, as well as desats even on 3 L. Had made visit 04/09/2021 for qualifying oxygen and Inogen. Patient had been asked to monitor her oximeter, and activity to keep her numbers above 89%, does this when she is going up and down the stairs, but does take it off. Though have explained patient regarding my concerns of prolonged hypoxia are challenging herself, she continues to be quite fiercely independent. She is willing though to consider using the Inogen to go up and down the stairs, given her low numbers on and off the oxygen with any activity. Patient had also been toying with her furosemide, had decreased to 30 mg, was on a baseline of 40 mg. She did have recurrent lower extremity edema and restarted at 40 mg. Counseling provided again regarding patient's compliance with medication, and need to keep herself in balance. Palliative care meeting with patient and daughters today to talk more about goals of care as they were visiting from out of town, at patient's request. Patient is quite offended that I had suggested she is declining and moving into a more advanced stage of her journey. She is quite sure that she is doing okay, with her Ayruveda medicine, supplements through Dr. Lisa, and her new mediation practices she is learning. Did proceed with the meeting though in the context of hoping for the best, but also planning and including daughters and planning for patient's decline in the future. Past Medical History: Congestive heart failure, hypertension, coronary artery disease, [place] with NSTEMI 2007, atrial fib on Xarelto, COPD, sleep apnea, CPAP use, headaches, peripheral neuropathy, idiopathic, postherpetic neuralgia of right chest area, history of breast cancer, incontinence, renal insufficiency, chronic vision loss, macular degeneration, rhinitis, depression, anxiety, osteoarthritis, gout, chronic back pain, persistent rash, fungal rash Social History - Living Situation Living arrangement: At home Living Situation: Alone Support System: Patient continues live by herself, she is fiercely independent. She lives in her own home which she actually designed. She has been on [facility] since 2001, she came from [facility] after her . 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 She very much enjoys her most recent activities which include immersing herself in new learning's in classes online, and connecting with community through this. She does have a neighbor Sunshine, that is providing her supports regarding groceries, transportation, and care if needed. She does have 2 daughters, when is in [facility] and can easily come, the other a little bit more complicated but both are willing to provide support if needed. Patient does have long-term care insurance that does pay for personal care. She currently lives a two-story house, with her bedroom upstairs. Medications/Allergies - Medications Home Medications: Ambulatory Orders Medication Instructions Recorded Confirmed Losartan [Cozaar] 100 mg PO DAILY 12/06/13 04/28/21 Spironolactone 12.5 mg PO DAILY 12/06/13 04/28/21 Tiotropium Molena [Spiriva] 2 puffs INH DAILY 12/06/13 04/28/21 Aspirin [Adult Low Dose Aspirin EC] 1 tab PO DAILY 07/12/17 04/28/21 Rivaroxaban [Xarelto] 15 mg PO DAILY 07/12/17 04/28/21 Furosemide [Lasix] 40 mg PO DAILY 07/25/18 04/28/21 Budesonide-Formoterol 1 puffs INH DAILY 04/17/20 04/28/21 Metoprolol Succinate [Toprol Xl] 25 mg PO DAILY 03/18/21 04/28/21 Prednisone [Osvaldo] 5 mg PO DAILY 03/18/21 04/28/21 Albuterol Sulf [Ventolin Hfa 1 - 2 puffs INH Q4HR PRN 04/09/21 04/28/21 Inhaler] Omeprazole Magnesium 20 mg PO DAILY MDD has not started 04/09/21 04/28/21 - Allergies Allergies/Adverse Reactions: Allergies Allergy/AdvReac Type Severity Reaction Status Date / Time alprazolam [From Xanax] Allergy Unknown Verified 11/03/20 17:38 azithromycin [From Zithromax] Allergy Unknown Verified 11/03/20 17:38 warfarin Allergy Rash Verified 11/03/20 17:38 Review of Systems - Constitutional Constitutional: reports: Fatigue (worsening), Weakness, Poor appetite, Weight stable. denies: Fever, Chills - Eyes Eyes: reports: Vision loss - Ears, Nose & Throat Ears, Nose & Throat: reports: Hearing loss (mild), Dry mouth. denies: Mouth lesions - Cardiovascular Cardiovascular: reports: Lightheadedness, Exertional dyspnea, Decr. exercise tolerance, Orthopnea. denies: Chest pain - Respiratory Respiratory: reports: SOB at rest, SOB with exertion, Other (cpap). denies: Cough - Gastrointestinal Gastrointestinal: reports: Poor appetite, Early satiety. denies: Constipation, Nausea - Genitourinary Genitourinary: reports: Incontinence - Musculoskeletal Musculoskeletal: reports: Back pain, Stiffness, Muscle weakness - Integumentary Integumentary: reports: Rash (left rib area; back has been using intermittently fungal cream), Pruritis, Dryness - Neurological Neurological: reports: General weakness, Memory problems (min STM), Other (PHN right arm/side) - Psychiatric Psychiatric: reports: Depression, Anxiety - Hematologic/Lymphatic Hematologic/Lymph: denies: Recurrent infections - All Other Systems All Other Systems: reports: Reviewed and negative Physical Exam - Vital Signs Temperature: 97.5 C Pulse Rate: 76 Respiratory Rate: 20 (24 with conversation) O2 Saturation: 89 (on 3 liters; 90 with intentional breathing) Blood Pressure: 132/72 - Physical Exam General Appearance: positive: No acute distress, Alert Eyes Bilateral: positive: Normal inspection ENT: positive: No signs of dehydration Neck: positive: Trachea midline Cardiovascular: positive: Regular rate & rhythm Respiratory: positive: Diminished throughout, Rales ( mild dry exp scatter crackles throughout). negative: No respiratory distress (with activity/conversation noted increase respiratory rate), Wheezes Abdomen: positive: Non-tender, Soft, Obese Skin: positive: Pallor, Bruising (UE and thighs from dropping lap top), Rash (dried papery thin pink skin/rash like in appearance on side; faded "rings" on left back) Extremities: positive: Pedal edema (trace to 1+ bilat), Other (very sedentary related to breathing and back pain) Neurologic/Psychiatric: positive: Oriented x3, Mood/affect nml, Weakness Palliative Care - POLST Patient has POLST: Yes POLST Status: DNR, Selective Treatment Pain: Pain unchanged, Location (lower back increased with standing; right PHN sensitivity) Tiredness/Fatigue: Moderate (4-6) Drowsiness/Sedation: Mild (1-3) Nausea: None Anorexia: None Dyspnea: Severe (7-10) Depression: None Anxiety: Mild (1-3) Feelings of wellbeing/Perceived Quality of Life: Fair, Acceptable, Improved (feels improving) Sleep: Sleep improved Constipation: Managed, Intermittent constipation Performance Status: Patient continues to have declining status, though was able to go out with assistance and her new Inogen to get labs drawn. Has pending appointment with her PCP LORETO Barcenas. She is mostly sedentary, does have limited ability to do field prep and activity secondary to chronic back pain with prolonged standing. She does spend most the time in the chair for at her computer. She is having increased trouble with bathing, the does have bath in chair, did recommend allowing Sunshine to provide more assistance with this. Patient is fiercely independent. Conversation with her daughter is also regarding moving downstairs to facilitate patient not needing to go up and down the stairs as she does desat fairly significantly. She has agreed to use her Inogen, as she had been taken off the oxygen and spending quite a bit of time with recovery. - Palliative Care Discussion: Patient is a little short when talking about conversation regarding patient's decline with her COPD, patient reports she does feel like she is improving. Though patient's numbers and measurements for oxygen improved otherwise as well as her decline in functional status. Did take this time with daughters to explore though we are all hoping for the best, to have patient maintain her independence as long as possible, what might be some options as things begin to change. We did discuss how things might come together if she were to move her living space downstairs, who would be available to provide support, and if she were to have an acute decline what availability was support the daughters would be. Both are quite clear they would come fairly urgently, and willing to take FMLA if she were having a transition point are declining quickly. I do believe in the context of this patient was relieved to hear support. Patient's perception is she is going to have a peaceful passing, and is not worried nor wanting to engage further in conversation regarding this. Counseling provided regarding the role of palliative care and support, will continue to follow patient as expect though she does not want to, will continue to decline. This is also an opportunity to provide education both to daughters and reinforce with patient, regarding expected natural course of chronic illness both with COPD, CHF and advanced aging. Impression and Recommendations - Palliative Care Impression: This is a delightful 86-year-old woman with multiple comorbidities of COPD, CHF, and history of breast cancer. She continues to decline functionally, attributed both to muscle weakness as well as worsening dyspnea and chronic respiratory failure. Patient perceives she is improving, though continues to be quite limited. Palliative care providing support regarding anticipatory guidance, symptom management and psychosocial support. Recommendations/Counseling Done: 1. Advanced COPD. Patient with chronic respiratory failure, with desats quite quickly without oxygen or with any kind of activity. Patient has been counseled on pacing activities, has been encouraged to increase oxygen to 4 to 5 L with activity, though this is difficult with concentrator. She does have her ARTHUR GEN now replaced, she could use this more easily for activity to accommodate. We trimble d discussed last time about increasing her prednisone to 10 mg, unclear why she did not follow through on this, continues at 5 mg. She was also instructed to start omeprazole 20 mg for stomach protection secondary to Xarelto/aspirin and prednisone, did prescribe though her insurance because it is OTC did not pay. Patient did not start because she reports "I do not have heartburn". Counseling provided again regarding the rationale, unclear if patient will adhere. 2. Medication adherence. Patient does kind of her "own thing". This is often based on limited understanding. She is on multiple supplements from her workers compensation coordinator. There has been counseled regarding concern interactions particularly with Xarelto. We will continue to monitor, patient does have significant bruising on her upper extremities, most recently dropped her laptop on her thighs, has bruising on her and inner thighs as well as a fairly large hematoma. 3. CHF. Patient decreased her furosemide down to 30 mg, just returned to 40 mg. She does have lower extremity edema. Counseling provided yet again regarding need for adherence, concerns for exacerbation of CHF, she did not like "peeing" so much. Encouraged compliance with current dosing. 4. Advanced care planning. Patient does have a POLST with DN AR/DNI in place with selective treatments. Daughters Sada present and Hillary on the phone with opportunity to discuss the continuum of care, availability of daughters if patient were to take a "turn for the worst", and review of patient's goals to remain independent as long as possible. She had originally wanted to have a family meeting regarding planning for end-of-life care, at this point in time she does not perceive herself as declining and that her end-of-life is further into the future, but did allow us to have conversations about "what if's" and daughters availability to provide support if patient were to take a turn for the worse. 60 minutes with greater than 50% of this spent in counseling regarding family conference, goals of care, review of medication adherence and education on disease trajectory and anticipatory guidance
== END 2021-04-27 09:31 | disposition home or self-care (01) ==
LOC: PC 09:30
PROVIDERS: ATTEND Nurse Practitioner Adult Health
DX: Z51.5 Encounter for palliative care (principal); J44.9 Chronic obstructive pulmonary disease, unspecified; J96.11 Chronic respiratory failure with hypoxia; Z91.14 Patient's other noncompliance with medication regimen; I11.0 Hypertensive heart disease with heart failure; I50.9 Heart failure, unspecified; Z66 Do not resuscitate
CPT/HCPCS: 99350

== ENCOUNTER 2021-06-25 14:45 | Outpatient (CLI) | payer MEDICARE, BC ==
--- NOTE | 2021-06-25 19:55 | CONSULTATION NOTE ---
Palliative Care Follow Up - Referral Referring Provider: Aleja DANGELO Time of Visit: [id number] Referral setting: Home Referral Reason: COPD/CHF/Goals of Care - Information Sources Records reviewed: Previous records reviewed History/Review of Systems obtained from: Patient Exam limitations: Clinical condition (mild STM deficits) - History of Present Illness Update Brief HPI Update: This is an 86-year-old woman with known advanced COPD and CHF. She continues to be challenged with her hypoxia, activity intolerance, but is managing to focus on staying strongly independent. Patient tends to be forgetful and redirects and covers well. Patient desats quite quickly with any kind of activity, this includes conversation. At rest with increased activity conversation her O2 sats on 3 L decreased to 87%, after 3 minutes with quiet breathing increased to 90%. She does get quite breathless with any kind of activity including ambulation,. She continues with living upstairs for her bedroom and bathing, and downstairs most of the day. This provides some challenges as far as getting up and down the stairs, but she does pace herself according to her O2 sats. She tends to adjust her own medications, has multiple supplements through Dr. Pollard, and trying to integrate her Ayruveda medicine techniques. She does have a long-term supplement for healthcare. Patient given her significant breathlessness, high risk for falls, unsteady gait and fluctuating dizziness would benefit from oversight and assistance with bathing, dressing, and meal prep. She does currently have assistance for transportation, shopping, does have some intermittent incontinence but is managing currently.She is quite sedentary, this is mostly related to her breathlessness. She very much enjoys taking her classes, she has a friend that she has met and emails regularly that provides her support and decrease isolation, as well as attentive family members. She does have someone on the property who can provide assistance with caregiving, transportation, and support as needed. Past Medical History: Congestive heart failure, hypertension, coronary artery disease, [place] with NSTEMI 2007, pacemaker placement, atrial fib on Xarelto, COPD, sleep apnea, CPAP use, headaches, peripheral neuropathy/idiopathic, postherpetic neuralgia of right chest area, history of breast cancer 2018 with lumpectomy and declining of systemic radiation treatment, incontinence, renal insufficiency, chronic vision loss, macular degeneration, rhinitis, depression, anxiety, osteoarthritis, history of gout, chronic back pain, persistent rash, fungal rash Social History - Living Situation Living arrangement: At home Living Situation: Alone Support System: Patient continues to live by herself, she would benefit from further assistance and oversight for safety. She lives in her own home which she designed, she has been on [facility] since 2001. 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 She very much enjoys most recently her activities. She has a neighbor Sunshine that is providing her support regarding groceries, transportation and care as needed. She does have 2 daughters who have recently visited, patient does have long-term care insurance. She currently lives in a two-story house with bedroom upstairs Medications/Allergies - Medications Home Medications: Ambulatory Orders Medication Instructions Recorded Confirmed Losartan [Cozaar] 100 mg PO DAILY 12/06/13 06/26/21 Spironolactone 12.5 mg PO DAILY 12/06/13 06/26/21 Tiotropium [place] [Spiriva] 2 puffs INH DAILY 12/06/13 06/26/21 Aspirin [Adult Low Dose Aspirin EC] 1 tab PO DAILY 07/12/17 06/26/21 Rivaroxaban [Xarelto] 15 mg PO DAILY 07/12/17 06/26/21 Furosemide [Lasix] 40 mg PO DAILY 07/25/18 06/26/21 Budesonide-Formoterol 1 puffs INH DAILY 04/17/20 06/26/21 Metoprolol Succinate [Toprol Xl] 25 mg PO DAILY 03/18/21 06/26/21 Prednisone [Osvaldo] 5 mg PO DAILY 03/18/21 06/26/21 Albuterol Sulf [Ventolin Hfa 1 - 2 puffs INH Q4HR PRN 04/09/21 06/26/21 Inhaler] Omeprazole Magnesium 20 mg PO DAILY 04/09/21 06/26/21 - Allergies Allergies/Adverse Reactions: Allergies Allergy/AdvReac Type Severity Reaction Status Date / Time alprazolam [From Xanax] Allergy Unknown Verified 11/03/20 17:38 azithromycin [From Zithromax] Allergy Unknown Verified 11/03/20 17:38 warfarin Allergy Rash Verified 11/03/20 17:38 Review of Systems - Constitutional Constitutional: reports: Fatigue, Weakness, Poor appetite, Weight stable. denies: Fever, Chills - Eyes Eyes: reports: Vision loss - Ears, Nose & Throat Ears, Nose & Throat: reports: Hearing loss (mild), Dry mouth. denies: Mouth lesions - Cardiovascular Cardiovascular: reports: Lightheadedness, Exertional dyspnea, Decr. exercise tolerance, Orthopnea. denies: Chest pain - Respiratory Respiratory: reports: SOB at rest, SOB with exertion, Other (cpap). denies: Cough - Gastrointestinal Gastrointestinal: reports: Poor appetite, Early satiety. denies: Constipation, Nausea - Genitourinary Genitourinary: reports: Incontinence - Musculoskeletal Musculoskeletal: reports: Back pain, Stiffness, Muscle weakness - Integumentary Integumentary: reports: Rash (left rib area; back has been using intermittently fungal cream), Pruritis, Dryness, Other (arms with multiple hematomas/frail skin) - Neurological Neurological: reports: General weakness, Memory problems (min STM), Other (PHN right arm/side) - Psychiatric Psychiatric: reports: Depression, Anxiety - Hematologic/Lymphatic Hematologic/Lymph: denies: Recurrent infections - All Other Systems All Other Systems: reports: Reviewed and negative Physical Exam - Vital Signs Temperature: 97.5 C Pulse Rate: 72 Respiratory Rate: 20 (24 with conversation) O2 Saturation: 90 (3 liters at rest; 87% with conversation) Blood Pressure: 108/62 - Physical Exam General Appearance: positive: No acute distress, Alert Eyes Bilateral: positive: Normal inspection ENT: positive: No signs of dehydration Neck: positive: Trachea midline Cardiovascular: positive: Regular rate & rhythm Respiratory: positive: Diminished throughout, Rales ( mild dry exp scattered fibrotic crackles throughout). negative: No respiratory distress (with activity/conversation noted increase respiratory rate), Wheezes Abdomen: positive: Non-tender, Soft, Obese Skin: positive: Pallor, Bruising (UE extensive), Rash (dried papery thin pink skin/rash like in appearance on side; faded "rings" on left back) Extremities: positive: Pedal edema (trace to 1+ bilat), Other (very sedentary related to breathing and back pain) Neurologic/Psychiatric: positive: Oriented x3, Mood/affect nml, Weakness Palliative Care - POLST Patient has POLST: Yes POLST Status: DNR, Selective Treatment Pain: Pain unchanged, Location (intermittent right chest pain) Feelings of wellbeing/Perceived Quality of Life: Good, Acceptable, No change Sleep: Variable sleep pattern Constipation: No Performance Status: Patient limited by her dyspnea, is able to ambulate short distances but needs frequent rest periods patient has peripheral neuropathy balance is noted in ataxic gait, though reports she has had no falls. She does have to pace herself and watch for her hypoxia, she continues to choose to live upstairs in her bedroom. - Palliative Care Discussion: Patient continues to want to stay on the "positive side", looking at ways through her integrative health issues and supports to better support her COPD/CHF. Spent time counseling regarding disease trajectory, pathophysiology and etiology, recommended integrating yoga breathing, restarting her upper extremity yoga, as well as continue with her meditation. She does have multiple supplements she is using, which of course is concerned given her medications she is currently on. In the context of this we did discuss again about it is a progressive disease, with expected progressive decline and ways to prepare for this and implement more care support. Patient is expecting a peaceful passing, has no worries about her impending decline or . She does have supportive friends and family, and will continue to add support as she sees the need, she does have difficulty giving up any independence. Impression and Recommendations - Palliative Care Impression: This is a delightful 86-year-old woman with multiple comorbidities of COPD, CHF, history of breast cancer. She does continue to decline functionally attributed both to muscle weakness, chronic respiratory failure, and worsening dyspnea. Palliative care providing support regarding anticipatory guidance, symptom management and psychosocial support as well as coordination of care. Recommendations/Counseling Done: 1. Advanced COPD. Patient with chronic respiratory failure, does desat quickly with any kind of activity on her off oxygen. She has been counseled on pacing activities and encouraged to use increased oxygen with activity though this is difficult with her concentrator upstairs. She does have a AR[employer] GEN now, but has not enlisted this for support. Patient continues with prednisone 5 mg. 2. Medication adherence. Patient continues to titrate her own medications, often based on limited understanding. She is also integrating multiple supplements from her cooker tender and again counseled regarding concerns for interactions particularly Xarelto. We will continue to monitor, she does have significant bruising on her upper extremities. 3. Bruising. Patient had been putting triamcinolone cream on her arms, reviewed that was recommended to go on her rash for no more than 2 weeks at a time. Encouraged just to keep her arms protected as well as moisturized. Patient verbalized understanding. 4. CHF. Patient is currently taking furosemide 40 mg, does not demonstrate any lower extremity edema or exacerbation. She does appear to be losing weight, but reports on scale has been steady. 5. Advanced care planning. Patient does have POLST with DN AR/DNI in place with selective treatments. Did have a visit from daughters in April, they are prepared for patient does have decline, she does have a niece who has been very helpful in helping her navigate multiple things that seem overwhelming for her. Patient is looking to enlist her long-term care insurance for increased support in the home, this would be of benefit to patient to increase her safety and decrease her energy output given her significant dyspnea and activity tolerance. We will continue to provide support every 2 to 3 months or more often if patient's symptoms worsen. 45 minutes with greater 50% of this done in counseling regarding goals of care, disease trajectory, symptom management, and anticipatory guidance.
== END 2021-06-25 14:46 | disposition home or self-care (01) ==
LOC: PC 14:45
PROVIDERS: ATTEND Nurse Practitioner Adult Health
DX: Z51.5 Encounter for palliative care (principal); J44.9 Chronic obstructive pulmonary disease, unspecified; J96.11 Chronic respiratory failure with hypoxia; I11.0 Hypertensive heart disease with heart failure; I50.9 Heart failure, unspecified; M62.81 Muscle weakness (generalized); R41.3 Other amnesia; R23.8 Other skin changes; G62.9 Polyneuropathy, unspecified; I48.91 Unspecified atrial fibrillation; Z91.14 Patient's other noncompliance with medication regimen; Z79.899 Other long term (current) drug therapy; Z79.01 Long term (current) use of anticoagulants; Z79.52 Long term (current) use of systemic steroids; Z99.81 Dependence on supplemental oxygen; Z66 Do not resuscitate; Z74.1 Need for assistance with personal care
CPT/HCPCS: 99349

== ENCOUNTER 2021-07-07 15:09 | Outpatient (CLI) | payer MEDICARE, BC | END 2021-07-07 15:10 | disposition home or self-care (01) | LOC: DI.S 15:09 | PROVIDERS: ATTEND Internal Medicine Hematology & Oncology | DX: Z53.9 Procedure and treatment not carried out, unspecified reason (principal) ==

== ENCOUNTER 2021-07-17 12:00 | Outpatient (CLI) | payer MEDICARE, BC ==
--- NOTE | 2021-07-17 16:41 | CONSULTATION NOTE ---
Palliative Care Follow Up - Referral Referring Provider: Aleja DANGELO Time of Visit: Referral setting: Home Referral Reason: Acute Back Pain/COPD/Rhinitis - Information Sources Records reviewed: Previous records reviewed History/Review of Systems obtained from: Patient Exam limitations: Clinical condition (mild STM deficits) - History of Present Illness Update Brief HPI Update: This is an 86-year-old woman with known advanced COPD and CHF. She continues to be challenged with her hypoxia, activity intolerance, but is focused on remaining independent. Unfortunately she had an acute fall on her porch 07/07/2021, she fell back onto a pot, she did not hit her head full onslaught but did hit it after her fall knocking back onto the deck. 911 had been called, paramedics recommended follow-up secondary she is on blood thinners. Her CT scan was negative with no acute intracranial findings. She did not have any acute confusion afterwards, she also had a CT of the cervical spine with no evidence of acute traumatic injury. She felt originally like she was covering, but then noted over the last few days increased pain at the upper left thoracic area, point tenderness to palpation over ribs at about the T12 area. Suspect contusion or cracked ribs. They did not do any imaging below that. Though this would be where the pot most likely hit her on her fall. She reports some spasms with it, there is actually no bruising over this area but is tender to palpation. Her lungs are clear, she can take a deep breath, she is with oxygen sat of 94% on 3 L. She has been taking prednisone 10 mg, she reports she did get some pain relief with acetaminophen at 1000 mg this morning, she has been taking it twice a day but remains quite uncomfortable. She is also worried as she has increased nose dripping, slight increase in cough, and is worried about Covid exposure having been transported in up to the hospital. Patient continues to be challenged with medication adherence, we did review her medications, she has increased her prednisone to 10 mg, is unclear though the neurosurgeon had recommended this dose why she chose to increase it at this time. She is on multiple supplements, has been cautioned given her back she is on Xarelto of concern regarding drug supplement interactions. Past Medical History: Congestion heart failure, hypertension, CAD, [place] with an STEMI 2007, pacemaker placement, atrial fib on Xarelto, COPD, sleep apnea, CPAP use, headaches, perip heral neuropathy/idiopathic, postherpetic neuralgia of the right chest area, history of breast cancer 2018 with lumpectomy and declining of systemic radiation treatment, incontinence, renal insufficiency, chronic vision loss, macular degeneration, rhinitis, depression, anxiety, osteoarthritis, history of gout, chronic back pain, persistent rash, fungal rash Social History - Living Situation Living arrangement: At home Living Situation: Alone Support System: On Patient continues live by herself, she would benefit from further assistance and oversight for safety. Only her caregiver Sunshine is gone to [place] until Tuesday or Tuesday, so she has very little support currently. She does not feel like she can ask her niece, whose dealing with her father and health issues. 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 She continues to enjoy her activities though is feeling somewhat stressed with increased pain. She currently lives in a two- story house with her bedroom upstairs, and is challenged to do the stairs. Medications/Allergies - Medications Home Medications: Ambulatory Orders Medication Instructions Recorded Confirmed Losartan [Cozaar] 100 mg PO DAILY 12/06/13 07/17/21 Spironolactone 12.5 mg PO DAILY 12/06/13 07/17/21 Tiotropium [place] [Spiriva] 2 puffs INH DAILY 12/06/13 07/17/21 Aspirin [Adult Low Dose Aspirin EC] 1 tab PO DAILY 07/12/17 07/17/21 Rivaroxaban [Xarelto] 15 mg PO DAILY 07/12/17 07/17/21 Furosemide [Lasix] 40 mg PO DAILY 07/25/18 07/17/21 Metoprolol Succinate [Toprol Xl] 25 mg PO DAILY 03/18/21 07/17/21 Prednisone [Osvaldo] 10 mg PO DAILY 03/18/21 07/17/21 Albuterol Sulf [Ventolin Hfa 1 - 2 puffs INH Q4HR PRN 04/09/21 06/26/21 Inhaler] Omeprazole Magnesium 20 mg PO DAILY 04/09/21 07/17/21 Acetaminophen [Pain Relief Extra 1,000 mg PO BID MDD 3000 mg 07/17/21 07/17/21 Strength] Budesonide [Pulmicort] 1 amp NEB BID PRN 07/17/21 07/17/21 - Allergies Allergies/Adverse Reactions: Allergies Allergy/AdvReac Type Severity Reaction Status Date / Time alprazolam [From Xanax] Allergy Unknown Verified 07/07/21 16:00 azithromycin [From Zithromax] Allergy Unknown Verified 07/07/21 16:00 warfarin Allergy Rash Verified 07/07/21 16:00 Review of Systems - Constitutional Constitutional: reports: Fatigue, Weakness, Weight stable. denies: Fever, Chills - Eyes Eyes: reports: Vision loss - Ears, Nose & Throat Ears, Nose & Throat: reports: Hearing loss (mild), Dry mouth. denies: Mouth lesions - Cardiovascular Cardiovascular: reports: Lightheadedness, Exertional dyspnea, Decr. exercise tolerance, Orthopnea. denies: Chest pain - Respiratory Respiratory: reports: SOB at rest, SOB with exertion, Other (cpap trying to negotiate getting replaced). denies: Cough - Gastrointestinal Gastrointestinal: reports: Good appetite (better with increased prednisone). denies: Constipation, Nausea - Genitourinary Genitourinary: reports: Incontinence - Musculoskeletal Musculoskeletal: reports: Back pain, Muscle aches, Stiffness, Muscle weakness - Integumentary Integumentary: reports: Rash (left rib area; back has been using intermittently fungal cream), Pruritis, Dryness, Other (arms with multiple hematomas/frail skin) - Neurological Neurological: reports: General weakness, Memory problems (min STM), Other (PHN right arm/side) - Psychiatric Psychiatric: reports: Depression, Anxiety - All Other Systems All Other Systems: reports: Reviewed and negative Physical Exam - Vital Signs Temperature: 97.4 C Pulse Rate: 70 Respiratory Rate: 20 O2 Saturation: 94 (3 liters at rest) Blood Pressure: 124/68 - Physical Exam General Appearance: positive: Alert, Mild distress (with back/rib pain) Eyes Bilateral: positive: Normal inspection ENT: positive: No signs of dehydration Neck: positive: Trachea midline Cardiovascular: positive: Regular rate & rhythm Respiratory: positive: Diminished throughout, Rales ( mild dry exp scattered fibrotic crackles throughout). negative: No respiratory distress (with activity/conversation noted increase respiratory rate), Wheezes Abdomen: positive: Non-tender, Soft, Obese Skin: positive: Pallor, Bruising (UE extensive), Rash (dried papery thin pink skin/rash like in appearance on side; faded "rings" on left back) Extremities: positive: No pedal edema, Other (very sedentary related to breathing and back pain) Neurologic/Psychiatric: positive: Oriented x3, Mood/affect nml, Weakness Palliative Care - POLST Patient has POLST: Yes POLST Status: DNR, Selective Treatment Pain: Pain worsening, Location (left thoracic back area tenderness to palpation rib), Pattern (worse with twisting or sitting) Tiredness/Fatigue: Moderate (4-6) Drowsiness/Sedation: None Nausea: None Anorexia: None Dyspnea: Moderate (4-6) Depression: None Anxiety: Mild (1-3) Feelings of wellbeing/Perceived Quality of Life: Good, Acceptable, Comment (impacted by fall) Sleep: Variable sleep pattern Constipation: No Performance Status: Patient is ambulatory, does need to pace herself secondary to dyspnea and now more limited with pain. Unfortunately has less help with her caregiver gone. Does find exacerbation with increased activity. She is challenged with bathing and pacing through ADLs. - Palliative Care Discussion: Patient continues to be challenged with her declining functional status and now with an acute pain episode and more limitations. She likes to say "positive" though is concerned about her vulnerability. She continues with engaging in things that bring her maxi, she is finding the pain quite distracting and sometimes overwhelming. Impression and Recommendations - Palliative Care Impression: Is a germaine 86-year-old woman with severe COPD, CHF, and history of breast cancer. She has had an acute ground-level fall, resulting in most likely contusion or rib fracture in her thoracic back area. Unfortunately she has little social support as her caregivers out of town, will continue to problem solve. Palliative care providing support regarding anticipatory guidance, symptom management, psychosocial portion as well as coordination of care. Recommendations/Counseling Done: 1. Acute back pain, thoracic. This is most likely as a result of fall, suspect cracked rib, as there is no hematoma but point tenderness on palpation. Patient does have increased exacerbation of pain with turning or twisting. She can take deep breaths though without discomfort.Discussed pros and cons of getting an x- ray, would not treat any differently. Patient was instructed to increase her acetaminophen 1000 mg from twice daily to 3 times daily, to use heating pad for back spasms, and if available when caregiver returns, try Salonpas over the a cute area. Patient does not want any opioids, but will call if worsens. 2. Rhinitis. Patient concerned with increased "drippy nose" and resulting in increased cough. Patient's breath sounds without any changes, patient is not hypoxic nor feverish. Patient did have a home Covid test, she is worried given her most recent exposure hospital she might have been exposed to Covid. Did demonstrate and show patient how to do home test, results were negative, this reassured patient. 3. Medication adherence. Patient continues to titrate her own medications, at this point in time she has increased her prednisone to 10 mg so this was what she was told from the neurosurgeon. Did provide our access to having difficulty navigating this. We reminded her to do refill and continue with omeprazole given she is on prednisone, Xarelto and aspirin. She also continues integrate multiple supplements with concern regarding interactions. She does have significant bruising on her upper extremities, but is fairly determined to set her own course. 4. Bruising. Patient has been instructed to stop the steroid cream on her arms, encouraged to get some Arnica as she is a natural woman. This made sense to her. She will apply this twice a day. She is been instructed to keep her arms protected and continue moisturizing. 5. CHF. Patient reports currently taking 40 mg, does not show any lower extremity edema or exacerbation, she has been instructed to increase by 20 mg if she does have lower extremity edema. At this point time appears to be tolerating fine. 6. Advanced care planning. Patient does have POLST with DN AR/DNI in place with selective treatments. She is feeling somewhat vulnerable given her situation today, but continues to focus on remaining independent. Her caregiver returns on Tuesday or Tuesday, encouraged to reach out if needs further support from her family. 45 minutes with greater than 50% done in symptom management review of medications, and anticipatory guidance, as well as instruction on how to home test for Covid.
== END 2021-07-17 12:01 | disposition home or self-care (01) ==
LOC: PC 12:00
PROVIDERS: ATTEND Nurse Practitioner Adult Health
DX: Z51.5 Encounter for palliative care (principal); J44.9 Chronic obstructive pulmonary disease, unspecified; I11.0 Hypertensive heart disease with heart failure; I50.9 Heart failure, unspecified; I25.10 Atherosclerotic heart disease of native coronary artery without angina pectoris; I25.2 Old myocardial infarction; I48.91 Unspecified atrial fibrillation; Z95.0 Presence of cardiac pacemaker; Z79.01 Long term (current) use of anticoagulants; G47.30 Sleep apnea, unspecified; G60.9 Hereditary and idiopathic neuropathy, unspecified; Z66 Do not resuscitate; M54.6 Pain in thoracic spine; Z85.3 Personal history of malignant neoplasm of breast; J31.0 Chronic rhinitis; R58 Hemorrhage, not elsewhere classified
CPT/HCPCS: 99349

== ENCOUNTER 2021-11-11 10:50 | Emergency (ER) | payer MEDICARE, BC ==
[2021-11-11 10:59] VITALS: BP 135/81
[2021-11-11 11:14] LABS: BASOPHILS # (AUTO) 0.1 10^3/uL (0.0-0.1); BASOPHILS % (AUTO) 0.6 %; EOSINOPHILS # (AUTO) 0.3 10^3/uL (0.0-0.7); EOSINOPHILS % (AUTO) 2.2 %; HCT - HEMATOCRIT 47.4 % (37.0-47.0); HGB - HEMOGLOBIN 15.3 g/dL (12.0-16.0); LYMPHOCYTES % (AUTO) 7.7 %; MEAN CORPUSCULAR HGB CONC 32.3 g/dL (32.0-36.0); MEAN CORPUSCULAR VOLUME 102.4 fL (81.0-99.0); MEAN PLATELET VOLUME 10.6 fL (7.9-10.8); MONOCYTES # (AUTO) 0.9 10^3/uL (0.0-1.0); MONOCYTES % (AUTO) 6.9 %; NEUTROPHILS # (AUTO) 10.6 10^3/uL (1.5-6.6); NEUTROPHILS % (AUTO) 80.6 %; PLT - PLATELET COUNT 202 10^3/uL (130-450); RED BLOOD COUNT 4.63 10^6/uL (4.20-5.40); RED CELL DISTRIBUTION WIDTH 13.2 % (12.0-15.0); WHITE BLOOD COUNT 13.2 x10^3/uL (4.8-10.8)
[2021-11-11 11:26] LABS: ALBUMIN 3.7 g/dL (3.2-5.5); ALBUMIN/GLOBULIN RATIO 1.5 (1.0-2.2); BILIRUBIN,TOTAL 0.9 mg/dL (0.2-1.0); CALCIUM 10.6 mg/dL (8.5-10.3); CREATININE 1.3 mg/dL (0.4-1.0); TOTAL PROTEIN 6.2 g/dL (6.7-8.2)
[2021-11-11] MEDS ORDERED: ACETAMINOPHEN 500 MG TABLET PO STA (11:43)
[2021-11-11 11:47] LABS: BILIRUBIN,URINE NEGATIVE (NEGATIVE); GLUCOSE, URINE (UA) NEGATIVE (NEGATIVE); KETONES,URINE (UA) NEGATIVE (NEGATIVE); LEUKOCYTE ESTERASE, URINE MODERATE (NEGATIVE); NITRITE,URINE NEGATIVE (NEGATIVE); OCCULT BLOOD,URINE NEGATIVE (NEGATIVE); PH,URINE 5.5 PH (5.0-7.5); PROTEIN,URINE TRACE mg/dL (NEGATIVE); UROBILINOGEN,URINE 0.2 (NORMAL) E.U./dL (NORMAL)
[2021-11-11 11:54] LABS: CLARITY,URINE HAZY (CLEAR)
[2021-11-11 12:07] LABS: BACTERIA,URINE Moderate /HPF (None Seen); RBC,URINE 0-5 /HPF (0-5); SQUAMOUS EPITHELIAL CELL,UR MOD Squamous (<= Few); WBC,URINE >25 /HPF (0-5)
--- NOTE | 2021-11-11 12:51 | CT Report ---
PROCEDURE: Abdomen/Pelvis WO INDICATIONS: L FLANK PAIN TECHNIQUE: Noncontrast 5 mm thick sections acquired from the diaphragms to the symphysis. 5 mm coronal and sagi ttal reformats were then performed. For radiation dose reduction, the following was used: automated exposure control, adjustment of mA and/or kV according to patient size. COMPARISON: None. FINDINGS: Image quality: Excellent. ABDOMEN: Lung bases: Chronic emphysematous changes are seen. No pleural effusion or pneumothorax. Heart size i s normal. Pacemaker leads are seen in right atrium and right ventricle. Solid organs: Liver and spleen are normal in size. Gallbladder is distended and contains a calcifie d stones in its dependent portion. No gallbladder wall thickening or pericholecystic fluid. Pancreas is normal in contours. No adrenal nodules. Left kidney is slightly atrophic in size compared to rig ht side. No obstructing stones or hydronephrosis. No perinephric fat stranding or fluid. No hydrouret er.. Peritoneum and bowel: There is no bowel obstruction. No gastric or small bowel wall thickening. No co lonic wall thickening or mesenteric fat stranding. Moderate fecal stasis throughout the colon is seen extending to sigmoid colon and rectum. Colonic diverticulosis is seen, no evidence of acute divertic ulitis. No abscess collection. No free fluid of free air. Nodes and vessels: No retroperitoneal or mesenteric adenopathy by size criteria. Atherosclerotic magali cifications throughout abdominal aorta is seen. Fusiform infrarenal abdominal aortic aneurysm is seen measures up to 4.2 x 3.8 cm in largest AP and transverse diameters. No periaortic fluid. IVC is with in normal limits. Miscellaneous: No ventral hernias. PELVIS: Genitourinary: Mild diffuse bladder wall thickening is seen. No discrete bladder wall mass. Slightly bulky appearing uterus dislocations noted. No gross abnormality is seen in bilateral adnexa. Miscellaneous: No inguinal hernias or adenopathy. Bones: No suspicious bony lesions. No vertebral body compression fractures. Grade 1 anterolisthesis of L5 on S1 is seen. Degenerative disease throughout lumbar spine. IMPRESSION: 1. No obstructing renal stones or hydronephrosis. Slightly atrophic-appearing left kidney compared to right side. No hydroureter. Diffuse bladder wall thickening, cystitis cannot be excluded. No discret e bladder wall mass. 2. Cholelithiasis without CT evidence of acute cholecystitis. No biliary ductal dilatation. 3. No bowel obstruction or abnormal bowel wall thickening. No free fluid or free air. Mild colonic di verticulosis without evidence of acute diverticulitis. No abscess collection. Mild constipation. 4. Fusiform infrarenal abdominal aortic aneurysm measures up to 4.2 cm in largest AP diameter. Modera te atherosclerotic disease. Reviewed by: Emre Patel MD on 11/11/2021 11:50 AM DANIEL Approved by: Emre Patel MD on 11/11/2021 11:50 AM AKDT Station ID: [id number]
[2021-11-11] MEDS ORDERED: LIDOCAINE PATCH 5% TOP STA (12:55)
--- NOTE | 2021-11-11 13:03 | ED Physician Documentation ---
PD HPI FEMALE - Stated complaint Stated Complaint: BACK PX - Chief complaint Chief Complaint: Abd Pain - History obtained from History obtained from: Patient - History of Present Illness Timing - onset: How many days ago (4) - Additional information Additional information: 86-year-old female with history of COPD on chronic 3 L home O2 presents by private vehicle for 4 days of left-sided, constant, aching, nonradiating flank pain. Patient states that she has been taking Tylenol for the pain, which does help, however the pain has persisted and earlier today she went to the walk-in clinic for evaluation. At the walk-in clinic they expressed concern that she might have a kidney stone and referred her to the ER for further work-up. Patient denies history of kidney stones. Denies any dysuria, hematuria, fevers, chills, nausea, vomiting, any other complaints at this time. Review of Systems Ten Systems: 10 systems reviewed and negative Constitutional: denies: Fever, Chills, Myalgias Eyes: denies: Loss of vision, Decreased vision, Photophobia Ears: denies: Loss of hearing, Ear pain, Drainage/discharge Throat: denies: Dental pain / toothache, Oral lesions / sores, Sore throat Cardiac: denies: Chest pain / pressure, Palpitations, Pedal edema Respiratory: denies: Dyspnea, Cough, Wheezing GI: denies: Abdominal Pain, Abdominal Swelling, Nausea, Vomiting, Constipation, Diarrhea : denies: Dysuria, Frequency Skin: denies: Rash, Lesions Musculoskeletal: reports: Back pain (L flank) PD PAST MEDICAL HISTORY - Past Medical History Past Medical History: Yes Cardiovascular: Congestive heart failure, Hypertension, Coronary artery disease, [place] (Nstemi 2007), Atrial fibrillation (on xarelto) Respiratory: COPD, Shortness of breath, Sleep apnea, CPAP use Neuro: Headaches, Peripheral neuropathy (idiopathic), Other (PHN right chest area) 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: Breast cancer : Incontinence, Renal insuffiency HEENT: Chronic vision loss, Macular degeneration, Other (rhinitis) Musculoskeletal: Osteoarthritis, Gout (hx), Chronic back pain Derm: Other (rash) - Past Surgical History Past Surgical History: Yes Ortho: Knee replacement (both) /WAREHOUSE ENGINEER: Other (lumpectumy left breast) Cardiovascular: Coronary stent, Pacemaker, Other (cardiac ablation) - Present Medications Home Medications: Ambulatory Orders Medication Instructions Recorded Confirmed Losartan [Cozaar] 100 mg PO DAILY 12/06/13 07/17/21 Spironolactone 12.5 mg PO DAILY 12/06/13 07/17/21 Tiotropium [place] [Spiriva] 2 puffs INH DAILY 12/06/13 07/17/21 Aspirin [Adult Low Dose Aspirin EC] 1 tab PO DAILY 07/12/17 07/17/21 Rivaroxaban [Xarelto] 15 mg PO DAILY 07/12/17 07/17/21 Furosemide [Lasix] 40 mg PO DAILY 07/25/18 07/17/21 Metoprolol Succinate [Toprol Xl] 25 mg PO DAILY 03/18/21 07/17/21 Prednisone [Osvaldo] 10 mg PO DAILY 03/18/21 07/17/21 Albuterol Sulf [Ventolin Hfa 1 - 2 puffs INH Q4HR PRN 04/09/21 06/26/21 Inhaler] Omeprazole Magnesium 20 mg PO DAILY 04/09/21 07/17/21 Acetaminophen [Pain Relief Extra 1,000 mg PO BID MDD 3000 mg 07/17/21 07/17/21 Strength] Budesonide [Pulmicort] 1 amp NEB BID PRN 07/17/21 07/17/21 cephALEXin [Keflex] 500 mg PO Q6H #20 cap 11/11/21 - Allergies Allergies/Adverse Reactions: Allergies Allergy/AdvReac Type Severity Reaction Status Date / Time alprazolam [From Xanax] Allergy Unknown Verified 11/11/21 11:00 azithromycin [From Zithromax] Allergy Unknown Verified 11/11/21 11:00 warfarin Allergy Rash Verified 11/11/21 11:00 - Social History Does the pt smoke?: No Smoking Status: Never smoker Does the pt drink ETOH?: No Does the pt have substance abuse?: No - Immunizations Immunizations are current?: Yes - POLST Patient has POLST: Yes PD ED PE NORMAL - Vitals Vital signs reviewed: Yes - General General: Alert and oriented X 3, No acute distress, Well developed/nourished - HEENT HEENT: Atraumatic, PERRL, EOMI, Moist mucous membranes - Neck Neck: Supple, no meningeal sign, No adenopathy, No JVD - Cardiac Cardiac: RRR, No murmur, Strong equal pulses - Respiratory Respiratory: No respiratory distress, Clear bilaterally, Other (on home O2) - Abdomen Abdomen: Soft, Non tender, Non distended - Back Back: No spinal TTP, Other (L sided CVA TTP) - Derm Derm: Normal color, No rash - Extremities Extremities: No deformity, No tenderness to palpate, Normal ROM s pain, No edema - Neuro Neuro: Alert and oriented X 3, 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, No motor deficit, No sensory deficit, Normal speech - Psych Psych: Normal mood, Normal affect Results - Vitals Vitals: Oxygen O2 Source Nasal cannula - Labs Labs: Laboratory Tests 11/11/21 11/11/21 11/11/21 11:10 11:10 11:35 WBC 13.2 H RBC 4.63 Hgb 15.3 Hct 47.4 H MCV 102.4 H MCH 33.0 H MCHC 32.3 RDW 13.2 Plt Count 202 MPV 10.6 Neut # (Auto) 10.6 H Lymph # (Auto) 1.0 L [place] # (Auto) 0.9 Eos # (Auto) 0.3 Baso # (Auto) 0.1 Absolute Nucleated RBC 0.00 Nucleated RBC % 0.0 Sodium 143 Potassium 4.0 Chloride 105 Carbon Dioxide 31 Anion Gap 7.0 BUN 35 H Creatinine 1.3 H Estimated GFR (MDRD) 39 L Glucose 85 Calcium 10.6 H Total Bilirubin 0.9 AST 30 ALT 26 Alkaline Phosphatase 43 Total Protein 6.2 L Albumin 3.7 Globulin 2.5 Albumin/Globulin Ratio 1.5 Lipase 40 Urine Color YELLOW Urine Clarity HAZY Urine pH 5.5 Ur Specific [place] 1.025 Urine Protein TRACE Urine Glucose (UA) NEGATIVE Urine Ketones NEGATIVE Urine Occult Blood NEGATIVE Urine Nitrite NEGATIVE Urine Bilirubin NEGATIVE Urine Urobilinogen 0.2 (NORMAL) Ur Leukocyte Esterase MODERATE H Urine RBC 0-5 Urine WBC >25 H Ur Squamous Epith Cells MOD Squamous H Urine Bacteria Moderate H Ur Microscopic Review INDICATED Urine Culture Comments NOT INDICATED PD MEDICAL DECISION MAKING - ED course Complexity details: reviewed results, re-evaluated patient, considered differential, d/w patient ED course: Patient presenting for flank pain, concern for kidney stones. Hemodynamically stable, no acute distress. Patient was offered pain medications, she declined any IV medications and requests Tylenol, which was ordered. CT negative for stones, incidental aortic aneurysm found 4.2 cm. Urinalysis concerning for possible infection. Will treat empirically given patient's symptoms and pain. Counseled to follow-up with primary care physician. She was informed of her incidental aneurysm findings and she was counseled to follow-up with her primary for this complaint as well. Departure - Departure Disposition: 01 Home, Self Care Clinical Impression: Urinary tract infection, Flank pain Condition: Stable Instructions: ED UTI Cystitis Female Prescriptions: cephALEXin [Keflex] 500 mg PO Q6H #20 cap Comments: You are seen today for flank pain. Fortunately your CT scan shows no evidence of a kidney stone. There were several incidental findings in your scan including a small aortic aneurysm. I recommend following up with your primary care physician for follow-up regarding this finding. We will treat your urinary tract infection with antibiotics, this should also hopefully help your flank pain. Discharge Date/Time: 11/11/21 13:16
[2021-11-11] MEDS ORDERED: cephALEXin 250 MG CAPSULE PO STA (13:04)
== END 2021-11-11 13:16 | disposition home or self-care (01) ==
LOC: ED 10:50
DX: N39.0 Urinary tract infection, site not specified (principal); I71.4 Abdominal aortic aneurysm, without rupture
CPT/HCPCS: 36415; 74176; 80053; 81001; 83690; 85025; 99284; A9270; 81003; 87086

== ENCOUNTER 2022-02-13 15:16 | Outpatient (CLI) | payer MEDICARE, BC | END 2022-02-13 15:17 | disposition EMS.NT | LOC: EMS 15:16 | DX: Z03.89 Encounter for observation for other suspected diseases and conditions ruled out (principal); Z99.81 Dependence on supplemental oxygen ==

== ENCOUNTER 2022-04-09 12:55 | Outpatient (CLI) | payer MEDICARE, BC | END 2022-04-09 12:56 | disposition EMS.NT | LOC: EMS 12:55 | DX: S80.12XA Contusion of left lower leg, initial encounter (principal); W21.89XA Striking against or struck by other sports equipment, initial encounter; Y92.009 Unspecified place in unspecified non-institutional (private) residence as the place of occurrence of the external cause ==

== ENCOUNTER 2022-04-15 08:20 | Outpatient (CLI) | payer MEDICARE, BC | END 2022-04-15 08:21 | disposition EMS.NT | LOC: EMS 08:20 | DX: M54.9 Dorsalgia, unspecified (principal) ==

== ENCOUNTER 2022-05-18 12:22 | Outpatient (CLI) | payer MEDICARE, BC ==
[2022-05-18 19:24] LABS: ALBUMIN 2.7 g/dL (3.2-5.5); CREATININE 1.4 mg/dL (0.4-1.0); PHOSPHORUS 2.2 mg/dL (2.5-4.6); URIC ACID 6.9 mg/dL (2.6-7.2)
[2022-05-18 19:32] LABS: CALCIUM 11.3 mg/dL (8.5-10.3); POTASSIUM 4.2 mmol/L (3.5-5.0)
== END 2022-05-18 12:23 | disposition home or self-care (01) ==
LOC: LAB.R 12:22
PROVIDERS: ATTEND Nurse Practitioner Adult Health
DX: N18.9 Chronic kidney disease, unspecified (principal); M10.9 Gout, unspecified
CPT/HCPCS: 80069; 84550; 85025; 87070; 87181; 87205

== ENCOUNTER 2022-05-19 08:09 | Outpatient (CLI) | payer MEDICARE, BC | END 2022-05-19 08:10 | disposition critical access hospital (66) | LOC: EMS 08:09 | DX: R53.1 Weakness (principal); R41.0 Disorientation, unspecified; R60.0 Localized edema | CPT/HCPCS: A0425; A0429 ==

== ENCOUNTER 2022-05-19 08:44 | Inpatient (IN) | payer MEDICARE, BC ==
[2022-05-19 09:33] LABS: BASOPHILS # (AUTO) 0.1 10^3/uL (0.0-0.1); BASOPHILS % (AUTO) 0.6 %; EOSINOPHILS % (AUTO) 0.1 %; HCT - HEMATOCRIT 45.8 % (37.0-47.0); HGB - HEMOGLOBIN 13.5 g/dL (12.0-16.0); LYMPHOCYTES # (AUTO) 0.7 10^3/uL (1.5-3.5); MEAN CORPUSCULAR HEMOGLOBIN 31.5 pg (27.0-31.0); MEAN CORPUSCULAR HGB CONC 29.5 g/dL (32.0-36.0); MEAN PLATELET VOLUME 10.8 fL (7.9-10.8); MONOCYTES % (AUTO) 5.3 %; NEUTROPHILS # (AUTO) 15.3 10^3/uL (1.5-6.6); PLT - PLATELET COUNT 283 10^3/uL (130-450); RED BLOOD COUNT 4.28 10^6/uL (4.20-5.40); RED CELL DISTRIBUTION WIDTH 13.3 % (12.0-15.0); WHITE BLOOD COUNT 18.2 x10^3/uL (4.8-10.8)
[2022-05-19 09:35] LABS: SLIDE REVIEW? Indicated
--- NOTE | 2022-05-19 09:42 | XRAY Report ---
PROCEDURE: Chest 1 View X-Ray INDICATIONS: Weakness TECHNIQUE: One view of the chest was acquired. COMPARISON: 07/14/2020 FINDINGS: Surgical changes and devices: Left chest wall single lead cardiac pacing device. Lungs and pleura: No pleural effusions or pneumothorax. Mildly increased interstitial markings with cephalization of pulmonary vessels. Mediastinum: Mediastinal contours appear normal. Heart size at the upper limits of normal. Bones and chest wall: No suspicious bony lesions. Overlying soft tissues appear unremarkable. IMPRESSION: Borderline cardiomegaly with pulmonary vascular congestion and mild interstitial edema. Reviewed by: Chet Willett MD on 05/19/2022 9:41 AM PST Approved by: Chet Willett MD on 05/19/2022 9:41 AM PST Station ID: [id number]
[2022-05-19 09:47] LABS: ALBUMIN 3.2 g/dL (3.2-5.5); ALBUMIN/GLOBULIN RATIO 0.9 (1.0-2.2); BILIRUBIN,TOTAL 0.8 mg/dL (0.2-1.0); CALCIUM 10.4 mg/dL (8.5-10.3); CREATININE 1.7 mg/dL (0.4-1.0); TOTAL PROTEIN 6.9 g/dL (6.7-8.2)
[2022-05-19 09:53] LABS: PLATELET ESTIMATE, MANUAL NORMAL (130-450,000) (NORMAL); PLATELET MORPHOLOGY NORMAL APPEARANCE (NORMAL); RBC MORPHOLOGY (MULTIPLE) 1+ MACROCYTOSIS (NORMAL)
[2022-05-19] MEDS ORDERED: SODIUM CHLORIDE 0.9% 500 ML IV STA (10:27)
--- NOTE | 2022-05-19 11:12 | CT Report ---
PROCEDURE: HEAD WO INDICATIONS: weak/fall/on xarelto TECHNIQUE: Noncontrast 4.5 mm thick angled axial sections acquired from the foramen magnum to the vertex. For r adiation dose reduction, the following was used: automated exposure control, adjustment of mA and/or kV according to patient size. COMPARISON: 07/07/2021. FINDINGS: Image quality: Excellent. CSF spaces: Basal cisterns are patent. No extra-axial fluid collections. Ventricles are normal in size and shape. Brain: No midline shift. No intracranial masses or hemorrhage. [place]-white matter interface is norm al. Age-related volume loss and small vessel ischemic change. Intracranial carotid calcifications. Skull and face: Calvarium and visualized facial bones are intact, without suspicious lesions. Sinuses: Visualized sinuses and mastoids are clear. IMPRESSION: No evidence acute intracranial process. Reviewed by: Dorian Aguayo MD on 05/19/2022 11:11 AM PST Approved by: Dorian Aguayo MD on 05/19/2022 11:11 AM PST Station ID: [id number]
[2022-05-19 12:58] LABS: BILIRUBIN,URINE NEGATIVE (NEGATIVE); GLUCOSE, URINE (UA) NEGATIVE (NEGATIVE); KETONES,URINE (UA) NEGATIVE (NEGATIVE); LEUKOCYTE ESTERASE, URINE NEGATIVE (NEGATIVE); NITRITE,URINE NEGATIVE (NEGATIVE); OCCULT BLOOD,URINE NEGATIVE (NEGATIVE); PH,URINE 5.5 PH (5.0-7.5); PROTEIN,URINE TRACE mg/dL (NEGATIVE); UROBILINOGEN,URINE 0.2 (NORMAL) E.U./dL (NORMAL)
[2022-05-19 13:02] LABS: CLARITY,URINE CLEAR (CLEAR)
--- NOTE | 2022-05-19 13:11 | ED Physician Documentation ---
History of Present Illness - Stated complaint Stated Complaint: WEAKNESS - Chief complaint Chief Complaint: General - History obtained from History obtained from: Patient, Caregiver - Additonal information Additional information: Patient is an 87-year-old female with a history of COPD and gout presenting for evaluation of increased weakness and a fall at home. She is currently undergoing treatment for gout with prednisone and recently started tramadol yesterday. 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 She is followed by Shamika Rucker with the palliative care service. She was seen yesterday and due to increased pain in the foot was started on tramadol. Per the caregiver she did well with taking the tramadol in the afternoon and she had given her a dose right before bedtime. She left patient sleeping in her chair she is had difficulty in going up the stairs to her bedroom. At this morning she found her laying next to her chair. Patient reports she had tried to get up to go to the bathroom and was too unsteady and fell down. She is unclear if she hit her head. She denies LOC.She is on a blood thinner.She is normally on oxygen at home and denies change in her breathing or cough. She denies chest pain, abdominal pain, vomiting or dysuria.Per the caregiver she is also followed by [facility] and they did change her dressing yesterday. Caregiver feels that the redness has worsened since she last evaluated a few days ago. 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: Breast cancer : Incontinence, Renal insuffiency HEENT: Chronic vision loss, Macular degeneration, Other Musculoskeletal: Osteoarthritis, Gout, Chronic back pain Derm: Other - Past Surgical History Past Surgical History: Yes Ortho: Knee replacement /RESPIRATORY THERAPIST ASSISTANT: Other Cardiovascular: Coronary stent, Pacemaker, Other - Present Medications Home Medications: Ambulatory Orders Medication Instructions Recorded Confirmed Losartan [Cozaar] 100 mg PO DAILY 12/06/13 05/19/22 Spironolactone 12.5 mg PO DAILY 12/06/13 05/19/22 Tiotropium [place] [Spiriva] 2 puffs INH DAILY 12/06/13 05/19/22 Aspirin [Adult Low Dose Aspirin EC] 1 tab PO DAILY 07/12/17 05/19/22 Rivaroxaban [Xarelto] 15 mg PO DAILY 07/12/17 05/19/22 Furosemide [Lasix] 40 mg PO DAILY 07/25/18 05/19/22 Metoprolol Succinate [Toprol Xl] 25 mg PO DAILY 03/18/21 05/19/22 Prednisone [Osvaldo] 10 mg PO DAILY 03/18/21 05/19/22 Albuterol Sulf [Ventolin Hfa 1 - 2 puffs INH Q4HR PRN 04/09/21 05/19/22 Inhaler] Acetaminophen [Pain Relief Extra 1,000 mg PO BID MDD 3000 mg 07/17/21 05/19/22 Strength] Budesonide [Pulmicort] 1 amp NEB BID PRN 07/17/21 05/19/22 cephALEXin [Keflex] 500 mg PO Q6H #20 cap 11/11/21 05/19/22 traMADol [Ultram] 50 mg PO Q4-6H PRN 05/19/22 05/19/22 - Allergies Allergies/Adverse Reactions: Allergies Allergy/AdvReac Type Severity Reaction Status Date / Time alprazolam [From Xanax] Allergy Unknown Verified 11/19/21 11:37 azithromycin [From Zithromax] Allergy Unknown Verified 11/19/21 11:37 warfarin Allergy Rash Verified 11/19/21 11:37 - Social History Does the pt smoke?: No Smoking Status: Never smoker Does the pt drink ETOH?: No Does the pt have substance abuse?: No - Immunizations Immunizations are current?: Yes - POLST Patient has POLST: Yes PD ED PE NORMAL - General General: Alert and oriented X 3, No acute distress, Well developed/nourished - HEENT HEENT: Atraumatic - Neck Neck: Supple, no meningeal sign - Cardiac Cardiac: Other (Irregularly irregular, normal rate) - Respiratory Respiratory: No respiratory distress, Other (Diminished breath sounds bilatera lly) - Abdomen Abdomen: Soft, Non tender, Non distended - Extremities Extremities: Other (Erythema to right foot, tophi at R 1st MTP joint with purulent drainage, No fluctuance to suggest abscess, no crepitus; b/l lower extremity swelling). No: No edema Results - Vitals Vitals: Vital Signs - 24 hr 05/19/22 05/19/22 05/19/22 08:56 09:02 11:02 Temperature 36.8 C Heart Rate 71 70 Respiratory 16 15 Rate Blood Pressure 115/59 L 115/71 O2 Saturation 98 100 If not protocol 3 : Oxygen Flow, liters/minute 05/19/22 05/19/22 13:00 15:00 Temperature Heart Rate 70 70 Respiratory 15 16 Rate Blood Pressure 125/74 129/70 O2 Saturation 95 95 If not protocol 3 3 : Oxygen Flow, liters/minute Oxygen O2 Source Nasal cannula - EKG (time done) 0924 Rate: Rate (enter#) (70) Rhythm: Atrial fibrillation Ischemia: No: ST elevation c/w ischemia - Labs Labs: Laboratory Tests 05/19/22 05/19/22 05/19/22 09:26 09:26 12:34 WBC 18.2 H RBC 4.28 Hgb 13.5 Hct 45.8 MCV 107.0 H MCH 31.5 H MCHC 29.5 L RDW 13.3 Plt Count 283 MPV 10.8 Neut # (Auto) 15.3 H Lymph # (Auto) 0.7 L [place] # (Auto) 1.0 Eos # (Auto) 0.0 Baso # (Auto) 0.1 Absolute Nucleated RBC 0.00 Nucleated RBC % 0.0 Manual Slide Review Indicated WBC Morphology Platelet Estimate NORMAL (130-450,000) Platelet Morphology NORMAL APPEARANCE RBC Morph Micro Appear 1+ MACROCYTOSIS Sodium 138 Potassium 5.0 Chloride 100 L Carbon Dioxide 24 Anion Gap 14.0 H BUN 45 H Creatinine 1.7 H Estimated GFR (MDRD) 28 L Glucose 155 H Lactic Acid Calcium 10.4 H Total Bilirubin 0.8 AST 25 ALT 21 Alkaline Phosphatase 69 Total Protein 6.9 Albumin 3.2 Globulin 3.7 Albumin/Globulin Ratio 0.9 L Lipase 39 Urine Color DARK YELLOW Urine Clarity CLEAR Urine pH 5.5 Ur Specific [place] >=1.030 H Urine Protein TRACE Urine Glucose (UA) NEGATIVE Urine Ketones NEGATIVE Urine Occult Blood NEGATIVE Urine Nitrite NEGATIVE Urine Bilirubin NEGATIVE Urine Urobilinogen 0.2 (NORMAL) Ur Leukocyte Esterase NEGATIVE Ur Microscopic Review NOT INDICATED Urine Culture Comments NOT INDICATED SARS-CoV-2 (PCR) 05/19/22 05/19/22 12:58 13:53 WBC RBC Hgb Hct MCV MCH MCHC RDW Plt Count MPV Neut # (Auto) Lymph # (Auto) [place] # (Auto) Eos # (Auto) Baso # (Auto) Absolute Nucleated RBC Nucleated RBC % Manual Slide Review WBC Morphology Platelet Estimate Platelet Morphology RBC Morph Micro Appear Sodium Potassium Chloride Carbon Dioxide Anion Gap BUN Creatinine Estimated GFR (MDRD) Glucose Lactic Acid 2.1 Calcium Total Bilirubin AST ALT Alkaline Phosphatase Total Protein Albumin Globulin Albumin/Globulin Ratio Lipase Urine Color Urine Clarity Urine pH Ur Specific [place] Urine Protein Urine Glucose (UA) Urine Ketones Urine Occult Blood Urine Nitrite Urine Bilirubin Urine Urobilinogen Ur Leukocyte Esterase Ur Microscopic Review Urine Culture Comments SARS-CoV-2 (PCR) NOT DETECTED PD Medical Decision Making - ED course Complexity details: reviewed results, re-evaluated patient, d/w patient ED course: Patient presenting for evaluation of generalized weakness and a fall at home. She has no focal deficits. A CT scan of her head was obtained given concerns for possible head injury in the setting of being anticoagulated. I did review these images and there is no signs of an intracranial bleed. Labs were also reviewed and are significant for leukocytosis with a white count of 18,000 and mild DK with a creatinine of 1.7, previously 1.4.Patient did receive a small fluid bolus. She continues to be weak and is not able to ambulate as she normally does at her baseline. I also examined her leg and she has obvious infection with no signs of abscess. It appears that she has failed outpatient therapy with several days of cephalexin. I did present the case to the hospitalist who agrees to admit the patient for further management. Departure - Departure Disposition: [facility] DC/Xfer Clinical Impression: Cellulitis of right foot, Leukocytosis, Failure of outpatient treatment, Generalized weakness Condition: Stable Discharge Date/Time: 05/19/22 17:00
[2022-05-19] MEDS ORDERED: cefTRIAXone 1 GM in SODIUM CHLORIDE 0.9% MINIBAG 100 ML IV STA (13:28)
[2022-05-19] MEDS ORDERED: VANCOMYCIN INJ 1 GM in SODIUM CHLORIDE 0.9% 500 ML IV STA (13:28)
[2022-05-19] MEDS ORDERED: VANCOMYCIN INJ 1 GM, VANCOMYCIN INJ 250 MG in SODIUM CHLORIDE 0.9% 250 ML IV STA (13:53)
[2022-05-19] MEDS ORDERED: ACETAMINOPHEN 325 MG TABLET PO STA (14:26)
[2022-05-19] MEDS ORDERED: oxyCODONE 5 MG TABLET PO PRN (16:29)
--- NOTE | 2022-05-19 16:29 | HISTORY & PHYSICAL EXAMINATION ---
Chief Complaint - Chief Complaint Chief Complaint: Weakness, foot infection, fall at home History of Present Illness - Admitted From Admitted From:: ED - History Obtained From Records Reviewed: [facility] History obtained from: ED provider and the patient - History of Present Illness HPI Comment/Other: This is an 87-year-old female who lives at home alone but 2 children help her. She has a history of COPD and is on 2 L of O2 at home, has a history of breast cancer, sees the Oncologist Dr Chavez at [facility] and sees Shamika Rucker NP in Palliative Care. There is a history of a pacemaker and A-fib and she takes Xarelto, and she may have a Hx of systolic heart failure since she takes those meds and had a prior FL and is followed by Cardiology. For the last 5-6 days she has had a gout flareup on her right foot. The tophus then opened, draine fluid and redness spread up the foot. She was started on Keflex which she has been on for 4 days. Cell-A-Spot was ordered to help with her wound. She was put on Tramadol for pain control and she was already on Prednisone daily. A caregiver checked on her this morning and found her on the floor, she had slid out of her recliner without it being witnessed. She does not know how long she layed there but did not have syncope. Patient was brought to the emergency room. She described pain in the R foot and feeling tired and weaker than her usual. Work-up included a head CT that was negative. Labs show WBC of 18, lactic acid 2.1, creatinine 1.7 (baseline creatinine 1.4). Cell-A-Spot had done a wound culture that was sent to our lab yesterday, and it is already growing Staph aureus, but no sensitivities are available yet. The pt has no fever currently and vital signs are normal in the ER. The ED provider has reached out to me on the Hospitalist team and we discussed her care going forward to include IV antibiotics for cellulitis that has failed outpatient treatment and to evaluate the fall at home, which may be from orthostasis, since she has acute on chronic kidney disease by her labs. Patient has a POLST form on file in her EMR, which indicates she wants to be a DNR/DNI. 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: reports: Breast cancer : reports: Incontinence, Renal insuffiency HEENT: reports: Chronic vision loss, Macular degeneration, Other Psych: reports: None Musculoskeletal: reports: Osteoarthritis, Gout, Chronic back pain Derm: reports: Other MRSA Hx?: No - Past Surgical History Ortho: reports: Knee replacement /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 She only smoked from age [age]. 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 She lives alone. She no longer drives a car. She claims that 2 children are close and come to assist her with laundry and cleaning and making meals. - Substance History Use: Uses substance without health or social issues: NONE - POLST Patient has POLST: Yes Meds/Allgy - Home Medications Home Medications: Ambulatory Orders Medication Instructions Recorded Confirmed Spironolactone 12.5 mg PO DAILY 12/06/13 05/19/22 Tiotropium [place] [Spiriva] 2 puffs INH DAILY 12/06/13 05/19/22 Aspirin [Adult Low Dose Aspirin EC] 1 tab PO DAILY 07/12/17 05/19/22 Rivaroxaban [Xarelto] 15 mg PO QDDINNER 07/12/17 05/20/22 Furosemide [Lasix] 40 - 80 mg PO DAILY 07/25/18 05/20/22 Metoprolol Succinate [Toprol Xl] 25 mg PO DAILY 03/18/21 05/19/22 Albuterol Sulf [Ventolin Hfa 1 - 2 puffs INH Q4HR PRN 04/09/21 05/19/22 Inhaler] Acetaminophen [Pain Relief Extra 1,000 mg PO BID MDD 3000 mg 07/17/21 05/19/22 Strength] Budesonide [Pulmicort] 0.5 mg INH BID PRN 07/17/21 05/20/22 traMADol [Ultram] 50 - 100 mg PO Q4-6H PRN 05/19/22 05/20/22 Fluconazole [Diflucan] 1 tablet PO Q7D 05/20/22 05/20/22 Losartan Potassium [Cozaar] 100 mg PO DAILY 05/20/22 05/20/22 allopurinoL [Zyloprim] 100 mg PO DAILY 05/20/22 05/20/22 cephALEXin [Keflex] 500 mg PO TID 05/20/22 05/20/22 predniSONE [Deltasone] 10 mg PO DAILY 05/20/22 05/20/22 - Allergies Allergies/Adverse Reactions: Allergies Allergy/AdvReac Type Severity Reaction Status Date / Time alprazolam [From Xanax] Allergy Unknown Verified 11/19/21 11:37 azithromycin [From Zithromax] Allergy Unknown Verified 11/19/21 11:37 warfarin Allergy Rash Verified 11/19/21 11:37 Review of Systems - Constitutional Constitutional: reports: Fatigue, Weakness - Ears, Nose & Throat Ears, Nose & Throat: reports: Hearing loss - Respiratory Respiratory: reports: SOB with exertion - Musculoskeletal Musculoskeletal: reports: Gout, Joint pain - Integumentary Integumentary: reports: Rash (Has an itchy and painful rash over the right upper extremities from Shingles, this makes her "lean to the Left".) - Neurological Neurological: reports: Other (She reports sliding out of her chair because she was weak. She remembers only 1 other fall when she tripped. Our ER records shows she has been here many times from falls.) - All Other Systems All Other Systems: reports: Reviewed and negative Exam - Vital Signs Vital Signs: Vital Signs x48h Temp Pulse Resp BP Pulse Ox O2 Flow Rate 05/19/22 15:00 70 16 129/70 95 3 05/19/22 13:00 70 15 125/74 95 3 05/19/22 11:02 70 15 115/71 100 3 05/19/22 09:02 115/59 L 05/19/22 08:56 36.8 C 71 16 98 - Physical Exam General Appearance: positive: No acute distress, Alert, Other (Is slow to answer, then seems to have poor memory.) Eyes Bilateral: positive: Normal inspection, No lid inflammation ENT: positive: ENT inspection nml, No signs of dehydration Neck: positive: Nml inspection, No JVD Respiratory: positive: Other (Clear lung mesa, no wheezes, poor air movement, is wearing O2 with nasal cannula) Cardiovascular: positive: No murmur (distant heart sounds due to large breasts) Abdomen: positive: Non-tender, Nml bowel sounds, No distention, Other (Obese with pannus) Skin: positive: Warm, Dry Extremities: positive: Other (R arm tender to touch but no rash seen. R mid-foot and toes are bandaged, tender to touch.) Neurologic/Psychiatric: positive: Oriented x3, Other (Poor memory. Grossly non- focal. [place].) Conclusion/Plan - Problem List (1) Cellulitis of right foot Conclusion/Plan: Patient has a worsening infection, and definitely no improvement despite being on cephalexin for 4 days. And outpatient IV treatment cannot be arranged to start tomorrow. In addition she now has altered mental status, with her lethargy, weakness and mild confusion. This all suggest that she has had failure of outpatient therapy. She is also immunocompromised, having taken daily Prednisone. Plan: Will admit to Inpatient status Will change oral to IV antibiotics Await blood culture results Await the wound culture results that were collected by [facility]. There is already a preliminary result from our lab of (+) bacterial growth. We will give pain medications if needed Follow CBC daily (2) Tophaceous gout Conclusion/Plan: A tophus opened and this is the source of the cellulitis infection. She says she has gout but tells me she is not on allopurinol. The med list indicates she is on allopurinol. Plan: We will give pain meds as needed We will give several days of IV hydrocortisone as stress dose steroids, while she is not on her daily oral prednisone We will continue with any other medications like allopurinol, once her medication list is reconciled by pharmacy Depending on progression of the open tophus, we will see if she needs a general surgery consult or orthopedic consult regarding management of the open tophus (3) Fall at home Conclusion/Plan: I suspect this is from having the current infection leading to volume depletion, since her labs show a new elevated creatinine. All labs were reviewed. Plan: We will place on telemetry to watch for arrhythmias We will order orthostatic vital sign checks. We will start IV fluids given the elevated creatinine Watch I's and O's carefully, given her history of CHF. We will probably stop the fluids after 1 day Continue her usual cardiac meds but will place holding parameters for low BP. We will check a CK to evaluate for rhabdo (4) Acute kidney injury superimposed on CKD Conclusion/Plan: Likely from volume depletion caused by the infection Plan: Start IV fluids but watch I's and O's and daily weights because of her history of CHF. Will likely give iv fluids only a day Hold her Lasix and Spironolactone temporarily, due to volume depletion Follow BMP daily We will check a CK to evaluate for rhabdo (5) COPD (chronic obstructive pulmonary disease) Conclusion/Plan: Clinically, she does not appear to have a COPD exacerbation currently. Plan: We will continue with her supplemental oxygen, keeping saturations 90 to 94% Continue with her usual COPD meds as well Follow her I's and O's, will likely only give 1 day of IV fluids (6) Chronic a-fib Conclusion/Plan: Plan: We will place on telemetry We will keep her on her usual heart rate slowing meds and anticoagulants (7) Hx of heart failure Conclusion/Plan: There is no Echo in this EMR to confirm if she has systolic or diastolic heart failure. She is on cardiac medications for systolic heart failure including Spironolactone and Lasix. Plan: While she currently needs IV fluids for the elevated lactic acid, and acute on CKD, we will hold Lasix and Spironolactone temporarily Will continue her B-manuelito, with parameters for holding it We will request records from her PCP to determine if this is systolic or diastolic heart failure or obtain an Echo here. - Lab Results Fish Bones: 05/20/22 05:46 05/20/22 05:46 - Other Other Results/Comments: Attestation: The patient is expected to be discharged or transferred to another facility within 96 hours: Yes.
[2022-05-19] MEDS ORDERED: traMADol 50 MG TABLET PO PRN (16:43)
[2022-05-19] MEDS: DEXTROSE 5%-0.9% NACL 1,000 ML IV SCH (17:38)
[2022-05-19] MEDS: SODIUM CHLORIDE FLUSH 0.9% 10 ML SYRINGE IVP SCH (17:38)
--- NOTE | 2022-05-19 18:44 | PHARMACY PROGRESS NOTE ---
- Therapy Status Vancomycin regimen day #: 1 Therapy status: Awaiting steady state Basis for treatment: Empirical Treatment indication: FOOT CELLULITIS Trough goal: 10-15 Concurrent antibiotics: CEFTRIAXONE - DK Risk Risk level for Acute Kidney Injury: High Acute Kidney Injury risk factors: Baseline CrCl <50 - Monitoring and Recommendation Clinical response to treatment: I&O Previous 24 hours 05/17/22 05/18/22 05/19/22 23:59 23:59 23:59 Intake Total 850 Balance 850 Lab Results 05/19/22 09:26 BUN 45 H Creatinine 1.7 H Estimated GFR (MDRD) 28 L Pt has underlying CKD with DK, Scr=1.7, baseline ~1.4. Wound Culture yielded Staph, no sensitivity yet. Monitoring plan: Daily serum creatinine, Draw trough early, Suggest ongoing fluid replacement Next trough due prior to maintenance dose #: 3 Next trough due (date/time): 05/21/22 @1330 Areas for additional monitoring: IV to PO when appropriate, Therapy de- escalation based on culture results, Acute Kidney Injury (Gently dosing Vanco since pt has CKD with DK. Clcr~25ml/min. Got one dose of 1.25G today in ED at 2PM. Will Give one more dose tomorrow and draw level early in case pt is not clearing it. Pt is 1.6 x over IBW. AdjustedBW=70kg.)
[2022-05-19] MEDS: BUDESONIDE 0.5 MG/2 ML NEB INH PRN (19:35)
[2022-05-19] MEDS: IPRATROPIUM 0.2 MG/ML NEB INH SCH (19:35)
[2022-05-19] MEDS: ACETAMINOPHEN 325 MG TABLET PO PRN (20:34)
[2022-05-19] MEDS: HYDROCORTISONE SUCCINATE 100 MG/2 ML VIAL IVP SCH (21:26)
[2022-05-19] MEDS: APIXABAN 5 MG TABLET PO SCH (21:26)
[2022-05-20] MEDS: IPRATROPIUM 0.2 MG/ML NEB INH SCH ×5 (00:29→18:43)
[2022-05-20] MEDS: SODIUM CHLORIDE FLUSH 0.9% 10 ML SYRINGE IVP SCH ×3 (01:26→19:22)
[2022-05-20] MEDS: DEXTROSE 5%-0.9% NACL 1,000 ML IV SCH (04:34)
[2022-05-20] MEDS: HYDROCORTISONE SUCCINATE 100 MG/2 ML VIAL IVP SCH ×3 (05:20→21:29)
[2022-05-20] MEDS: ACETAMINOPHEN 325 MG TABLET PO PRN (05:55)
[2022-05-20 06:18] LABS: BASOPHILS % (AUTO) 0.4 %; HCT - HEMATOCRIT 39.5 % (37.0-47.0); HGB - HEMOGLOBIN 11.9 g/dL (12.0-16.0); LYMPHOCYTES % (AUTO) 3.8 %; MEAN CORPUSCULAR HGB CONC 30.1 g/dL (32.0-36.0); MEAN CORPUSCULAR VOLUME 106.2 fL (81.0-99.0); MONOCYTES % (AUTO) 2.9 %; NEUTROPHILS % (AUTO) 87.4 %; PLT - PLATELET COUNT 261 10^3/uL (130-450); RED BLOOD COUNT 3.72 10^6/uL (4.20-5.40); RED CELL DISTRIBUTION WIDTH 13.2 % (12.0-15.0); WHITE BLOOD COUNT 19.5 x10^3/uL (4.8-10.8)
[2022-05-20 06:24] LABS: ABNORMAL LYMPHS % (MANUAL) 0 %
[2022-05-20 06:27] LABS: CREATININE 1.5 mg/dL (0.4-1.0); MAGNESIUM 2.3 mg/dL (1.7-2.8); POTASSIUM 4.6 mmol/L (3.5-5.0)
[2022-05-20 06:36] LABS: BAND NEUTROPHILS % (MANUAL) 1 %; DIFFERENTIAL COMMENT MANUAL DIFFERENTIAL; LYMPHOCYTES # (MANUAL) 0.6 10^3/uL (1.5-3.5); LYMPHOCYTES % (MANUAL) 3 %; METAMYELOCYTES % (MANUAL) 1 %; MONOCYTES # (MANUAL) 0.6 10^3/uL (0.0-1.0); MYELOCYTES % (MANUAL) 4 %; NEUTROPHILS # (MANUAL) 17.4 10^3/uL (1.5-6.6); PLATELET ESTIMATE, MANUAL NORMAL (130-450,000) (NORMAL); PLATELET MORPHOLOGY NORMAL APPEARANCE (NORMAL); RBC MORPHOLOGY (MULTIPLE) NORMAL APPEARANCE (NORMAL); WBC MORPHOLOGY (MULTIPLE) NORMAL APPEARANCE (NORMAL)
[2022-05-20] MEDS: BUDESONIDE 0.5 MG/2 ML NEB INH PRN (07:47)
[2022-05-20] MEDS: METOPROLOL SUCCINATE 25 MG TABLET PO SCH (09:00)
[2022-05-20] MEDS ORDERED: cefTRIAXone 1 GM in SODIUM CHLORIDE 0.9% MINIBAG 100 ML IV SCH (09:00)
[2022-05-20] MEDS ORDERED: LOSARTAN 50 MG TABLET PO SCH (09:00)
[2022-05-20] MEDS: ASPIRIN EC 81 MG TABLET PO SCH (09:01)
[2022-05-20] MEDS: APIXABAN 5 MG TABLET PO SCH ×2 (09:01→20:46)
--- NOTE | 2022-05-20 09:58 | XRAY Report ---
PROCEDURE: Hip w/Pelvis 2-3V LT INDICATIONS: L hip pain after fall at home yesterday TECHNIQUE: AP pelvis with lateral view(s) of the left hip(s). COMPARISON: None. FINDINGS: Bones: No fractures or dislocations. Pelvic ring appears intact. No suspicious bony lesions. Mild joint space narrowing and periarticular osteophyte formation at the bilateral hip joints. Soft tissues: The visualized bowel gas pattern is normal. No suspicious soft tissue calcifications. IMPRESSION: Bilateral hip osteoarthritis. No acute fracture. No osseous lesion. If symptoms and/or c linical suspicion for pathology continue, further assessment with repeat plain films, or advanced shar ging (e.g., CT, MRI, or bone scan) is recommended for further assessment. Reviewed by: Afsaneh Reyes MD on 05/20/2022 9:57 AM PST Approved by: Afsaneh Reyes MD on 05/20/2022 9:57 AM [facility] Station ID: [id number]
[2022-05-20 10:11] LABS: FOLATE 13.8 ng/mL (5.90 - >24.8)
[2022-05-20] MEDS ORDERED: ceFAZolin 1 GM VIAL IVP SCH (11:00)
[2022-05-20] MEDS: SODIUM CHLORIDE FLUSH 0.9% 10 ML SYRINGE IVP PRN (12:34)
[2022-05-20] MEDS: CEFAZOLIN 2G/50ML 0.9% NS 2 GM/50 ML BAG IV SCH ×2 (12:34→20:46)
--- NOTE | 2022-05-20 13:11 | PHARMACY PROGRESS NOTE ---
- Best Possible Medication History Admit Date and Time: 05/19/22 1629 Processed by: Pharmacy Medication History completed: Yes Patient Interview: Pt unable to participate Secondary Source(s): Physician records, Pharmacy records, Insurance records As the person ultimately responsible for medication therapy, providers are able to order a medication from an existing home medication list in [facility] via the "Reconcile Routine" prior to Confirmation of that medication by academic support specialist. Such practice is discouraged except when the physician, in their clinical judgment, deems that a medical need exists for a medication without regard to previous use.
[2022-05-20] MEDS ORDERED: VANCOMYCIN INJ 1 GM, VANCOMYCIN INJ 250 MG in SODIUM CHLORIDE 0.9% 250 ML IV SCH (14:00)
[2022-05-20] MEDS ORDERED: iohexoL-300 100 ML VIAL ONE (15:12)
[2022-05-20] MEDS ORDERED: iohexoL-300 100 ML VIAL IVP ONE (16:45)
--- NOTE | 2022-05-20 17:27 | CT Report ---
PROCEDURE: LOWER EXTREMITY W - RT INDICATIONS: grt toe tophus, cellulit/poss sptic arth vs osteo TECHNIQUE: After administration of contrast 3 mm axial sections acquired of the right forefoot, with coronal and sagittal reformats. For radiation dose reduction, the following was used: automated exposure contr ol, adjustment of mA and/or kV according to patient size. CONTRAST: 100mL Omni 300 COMPARISON: None. FINDINGS: Image quality: Excellent. Bones: There is irregular lucency and erosions within the medial and lateral sesamoids of the first digit. Irregular lucencies and erosions within the first metatarsal head. Irregular erosion and patho logic fracturing of the middle and distal phalanxes of the second digit. Soft tissues: Severe diffuse subcutaneous ill-defined T2 signal elevation. Calcifications adjacent t o the first metatarsal head medially. No focal fluid collections. IMPRESSION: 1. Severe osteomyelitis involving the second digit with associated pathological fracture and of the s econd digit. 2. Findings consistent with gouty arthropathy of the first metatarsophalangeal joint. 3. Erosion of the sesamoids of the first digit as well as the first metatarsal head, suggestive of os teomyelitis. Reviewed by: Afsaneh Reyes MD on 05/20/2022 4:54 PM PST Approved by: Afsaneh Reyes MD on 05/20/2022 4:54 PM PST Station ID: [id number]
--- NOTE | 2022-05-20 17:43 | PROVIDER PROGRESS NOTE ---
Assessment/Plan - Problem List (1) Cellulitis of right foot Assessment/Plan: Patient was admitted due to a worsening infection and worsened confusion, despite being on cephalexin for 4 days. 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 She was started on IV antibiotics Vanco and Ceftriaxone yesterday. All labs were reviewed. Her WBC went up from 18 yesterday to 19 today. We are getting lab identification of the wound culture that was taken by [facility] the day before admission. It is growing Staph aureus and is pansensitive. Plan: Will change her antibx to Ancef 2 g IV q8h, based on the Staph aureus wound cx sensitivities. Discussed with pharmacy. Await blood culture results We will give pain medications if needed Follow CBC daily (2) MSSA infection Staph aureus is growing in the wound cx. It is pansensitive. Plan: As in #1 (3) Tophaceous gout Conclusion/Plan: A tophus opened and this is the source of the cellulitis infection. She said she is not on allopurinol. The med list indicates she is on allopurinol. Today a consult from Wound MAC clinic doctor was requested. Dr Song came and looked at the wound with me. He recommended that she have imaging done to assure it is not septic arthritis or osteomyelitis. He did not feel it needed any debridement currently. He advised we order an Orthopedic consult Plan: Continue to give pain meds as needed Continue to give several days of IV hydrocortisone as stress dose steroids, while she is not on her daily oral prednisone We will resume allopurinol Check a uric acid level. Target level is 4 or under to promote healing, as per Wound doctor. Will get a CT w/ contrast of the foot, no MRI because she has a pacemaker. We will request an orthopedic consult (however the on-call schedule says that there is no orthopedist available today or for the next 3 days). Will order PT and OT to start, even with chair exercises for now. (4) Fall at home Conclusion/Plan: Palliative Care provider Shamika Rucker NP came to see her today and provided me with details about her past history. Patient has had multiple falls at home. Patient mostly sits in her chair at home and furniture surfs when walking. She is getting forgetful, and that definitely was worsened by the infection. One set of orthostatic vital sign checks are normal, done to Plan: Continue on telemetry to watch for arrhythmias Continue orthostatic vital sign checks. Continue her usual cardiac meds with holding parameters for low BP. Await a CK to evaluate for rhabdo Shamika will speak to the children today and update them, she said. (5) L hip pain This was noticed by the overnight RN when they had to reposition her in her bed. The patient also told Shamika Rucker today that she had pain in L hip. Plan: Plain films of the left hip and pelvis will be done to rule out a fracture>> No fracture was seen, just arthritic changes. I informed the patient. (6) Confusion By report from Shamika Rucker, SPEECH THERAPIST TECHNICIAN to me today, she was more confused than her typical confusion, at presentation. Then today after she received oxycodone, for her painful toe, during a dressing change, she woke up very confused. Plan: We will stop the oxycodone 10 mg dose We will try to limit narcotics that can sedate her and confuse her. Will try NSAIDs (Ketolorac) prn, give this with food or milk and order Pepcid po BID, since she is also on DOAC and baby aspirin daily. Continue with her O2 and will order her to use her home CPAP while she is here. (7) COPD (chronic obstructive pulmonary disease) Conclusion/Plan: Clinically, she does not appear to have a COPD exacerbation currently. Plan: We will continue with her supplemental oxygen, keeping saturations 90 to 94% Continue with her usual COPD meds as well (8) Acute kidney injury superimposed on CKD Conclusion/Plan: Improved. This was likely from volume depletion caused by the infection. All labs were reviewed. The creat has improved from 1.7 yesterday to 1.5 today, after getting 1 day of iv hydration. Plan: We will stop her IV fluids, which were going at 83 cc/h, given her history of CHF and she is slightly more tachypneic at rest today on exam Hold her Lasix and Spironolactone temporarily, we will likely restart those tomorrow Follow BMP daily Awaiting a CK to evaluate for rhabdo (9) Chronic a-fib Conclusion/Plan: Plan: Continue on telemetry We will keep her on her usual heart rate slowing meds and anticoagulants. If debridement is needed, her DOAC will need to be stopped the day before. (10) Hx of heart failure Conclusion/Plan: We have no Echo in this EMR to confirm if she has systolic or diastolic heart failure. 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 Plan: We will request an Echo be done here. We will stop the IV fluids that she has now received for 1 day since she is slightly more tachypneic at rest clinically Beta-manuelito has been resumed, with holding parameters. Continue to still hold Lasix and Spironolactone probably for 1 more day. (11) ANNI on CPAP Plan: Order her home CPAP device to be used while she is here. - Current Meds Current Meds: Current Medications Generic Name Dose Route Start Last Admin Trade Name Freq PRN Reason Stop Dose Admin Acetaminophen 650 mg 05/19/22 16:29 05/20/22 05:55 Acetaminophen 325 Mg Tablet PO 650 mg Q4HR PRN Administration Pain 1 to 4, or Fever Apixaban 5 mg 05/19/22 21:00 05/20/22 09:01 Apixaban 5 Mg Tablet PO 5 mg BID KENDALL Administration Aspirin 81 mg 05/20/22 09:00 05/20/22 09:01 Aspirin Ec 81 Mg Tablet PO 81 mg DAILY KENDALL Administration Hydrocortisone Sodium Succinate 100 mg 05/19/22 22:00 05/20/22 14:14 Hydrocortisone Succinate 100 Mg/2 Ml Vial IVP 100 mg TID KENDALL Administration Cefazolin/Sodium Chloride 2 gm in 50 mls @ 100 mls/hr 05/20/22 12:00 05/20/22 14:14 Ancef 2 Grams/50ml IV Infused Q8H KENDALL Infusion Ipratropium [place] 0.5 mg 05/20/22 11:00 05/20/22 16:08 Ipratropium 0.2 Mg/Ml Neb INH 0.5 mg RTQID KENDALL Administration Metoprolol Succinate 25 mg 05/20/22 09:00 05/20/22 09:00 Metoprolol Succinate 25 Mg Tablet PO 25 mg DAILY KENDALL Administration Oxycodone HCl 10 mg 05/19/22 16:29 05/20/22 13:10 Oxycodone 5 Mg Tablet PO 10 mg Q6HR PRN Administration Pain 8 to 10 Sodium Chloride 10 ml 05/19/22 16:29 05/20/22 12:34 Sodium Chloride Flush 0.9% 10 Ml Syringe IVP 10 ml PRN PRN Administration NEEDED PER PROVIDER ORDERS Sodium Chloride 10 ml 05/19/22 17:00 05/20/22 09:30 Sodium Chloride Flush 0.9% 10 Ml Syringe IVP 10 ml 0100,0900,1700 KENDALL Administration - Lab Result Fish Bone Diagrams: 05/20/22 05:46 05/20/22 05:46 - Additional Planning My Orders: My Active Orders 05/19/22 16:43 traMADol [Ultram] 50 mg PO Q4H PRN 05/19/22 17:00 Sodium Chloride Flush 0.9% [Normal Saline Flush 0.9%] 10 ml IVP 0100,0900,1700 05/19/22 17:05 Orthostatic [Vital Signs - Orthostatic] [RC] DAILY 05/19/22 19:36 Nebulizer [Nebulizer/MDI Tx.] [RC] .Q6 05/19/22 21:00 Apixaban [Eliquis] 5 mg PO BID 05/19/22 22:00 Hydrocortisone Succinate [Solu-CORTEF] 100 mg IVP TID 05/20/22 Consult [Orthopedics Consult] [CONS] Routine Wound Consult MAC [MAC] Routine Evaluate and Treat OT [OT] Routine Evaluate and Treat PT [PT] Routine 05/20/22 09:00 Aspirin EC [Ecotrin] 81 mg PO DAILY Metoprolol Succinate [Toprol Xl] 25 mg PO DAILY 05/20/22 09:52 Budesonide [Pulmicort] 0.5 mg INH RTBID 05/20/22 11:00 Ipratropium [Atrovent] 0.5 mg INH RTQID 05/20/22 12:00 Cefazolin 2G/50Ml 0.9% Ns [Ancef 2 Grams/50Ml] 2 gm in 50 ml IV Q8H 05/20/22 17:00 Saccharomyces Boulardii [Florastor] 250 mg PO BIDWM 05/21/22 05:00 BMP - BASIC METABOLIC PANEL [CHEM] DAILYLAB CBC - COMP BLD CT W/AUTO DIFF [HEME] DAILYLAB HEMOGLOBIN A1c% [CHEM] DAILYLAB URIC ACID [CHEM] DAILYLAB 05/21/22 09:00 Losartan [Cozaar] 25 mg PO DAILY allopurinoL [Zyloprim] 100 mg PO DAILY 05/21/22 13:30 VANCOMYCIN TROUGH [CHEM] Timed 05/22/22 05:00 BMP - BASIC METABOLIC PANEL [CHEM] DAILYLAB CBC - COMP BLD CT W/AUTO DIFF [HEME] DAILYLAB 05/23/22 05:00 BMP - BASIC METABOLIC PANEL [CHEM] DAILYLAB CBC - COMP BLD CT W/AUTO DIFF [HEME] DAILYLAB 05/24/22 05:00 BMP - BASIC METABOLIC PANEL [CHEM] DAILYLAB CBC - COMP BLD CT W/AUTO DIFF [HEME] DAILYLAB Subjective - Subjective Patient Reports: Pain (Knee movement of the left leg and hip cause pain, noticed when she was repositioned in bed last night. Any movement of her right great toe causes pain, noticed when the open wound was dressed.) Objective Vital Signs: Vital Signs - 24 hr 05/19/22 05/19/22 05/19/22 18:39 19:35 19:37 Temperature Heart Rate 84 Heart Rate [ Brachial] Heart Rate [ Monitoring electrodes] Heart Rate [ Sitting] Heart Rate [ Standing] Heart Rate [ Supine] Respiratory 16 Rate Blood Pressure [Left Brachial artery] Blood Pressure [Sitting] Blood Pressure [Standing] Blood Pressure [Supine] O2 Saturation O2 Saturation [ Sitting] O2 Saturation [ Standing] O2 Saturation [ Supine] If not protocol 3 3 2 : Oxygen Flow, liters/minute 05/19/22 05/19/22 05/20/22 20:49 23:53 05:00 Temperature 36.3 C L 36.8 C 36.7 C Heart Rate Heart Rate [ 71 70 Brachial] Heart Rate [ 70 Monitoring electrodes] Heart Rate [ Sitting] Heart Rate [ Standing] Heart Rate [ Supine] Respiratory 24 18 18 Rate Blood Pressure 100/54 L 122/59 L 100/70 [Left Brachial artery] Blood Pressure [Sitting] Blood Pressure [Standing] Blood Pressure [Supine] O2 Saturation 97 94 98 O2 Saturation [ Sitting] O2 Saturation [ Standing] O2 Saturation [ Supine] If not protocol 3 3 3 : Oxygen Flow, liters/minute 05/20/22 05/20/22 05/20/22 07:15 07:28 10:23 Temperature 36.7 C Heart Rate 68 Heart Rate [ 70 Brachial] Heart Rate [ Monitoring electrodes] Heart Rate [ 71 Sitting] Heart Rate [ 75 Standing] Heart Rate [ 70 Supine] Respiratory 20 18 Rate Blood Pressure 132/75 H [Left Brachial artery] Blood Pressure 126/77 [Sitting] Blood Pressure 136/78 H [Standing] Blood Pressure 119/56 L [Supine] O2 Saturation 99 O2 Saturation [ 96 Sitting] O2 Saturation [ 94 Standing] O2 Saturation [ 97 Supine] If not protocol 3 3 : Oxygen Flow, liters/minute 05/20/22 05/20/22 05/20/22 11:44 16:00 16:11 Temperature 36.6 C 36.8 C Heart Rate 74 Heart Rate [ 70 72 Brachial] Heart Rate [ Monitoring electrodes] Heart Rate [ Sitting] Heart Rate [ Standing] Heart Rate [ Supine] Respiratory 20 20 20 Rate Blood Pressure 124/64 125/81 H [Left Brachial artery] Blood Pressure [Sitting] Blood Pressure [Standing] Blood Pressure [Supine] O2 Saturation 96 95 O2 Saturation [ Sitting] O2 Saturation [ Standing] O2 Saturation [ Supine] If not protocol 2 2 2 : Oxygen Flow, liters/minute Oxygen O2 Source Nasal cannula I&O (Last 24 Hrs): Intake and Output Totals x24h 05/18/22 05/19/22 05/20/22 23:59 23:59 23:59 Intake Total 1500 2608.835 Output Total 700 Balance 1500 1908.835 General: Alert, Oriented x3, Other (Appears Cushingoid) HEENT: Atraumatic, Mucous membr. moist/pink Neck: Supple, No JVD Neuro: Alert, Non Focal, Other (Poor memory. [place] Cardiovascular: No murmurs Respiratory: Other (Clear lung mesa, poor air movement in all lung mesa, wearing O2 with nasal cannula) Abdomen: Normal bowel sounds, Soft, No tenderness Extremities: No edema, Other (Right great toe, at the "bunion", has 3 open areas that show yellow tophi. There is serous fluid oozing. There is redness and swelling of the R great toe spreading to the lower foot and to the dorsal side of the foot and entire second toe.) - Results Results: Laboratory Results WBC 19.5 x10^3/uL (4.8-10.8) H 05/20/22 05:46 RBC 3.72 10^6/uL (4.20-5.40) L 05/20/22 05:46 Hgb 11.9 g/dL (12.0-16.0) L 05/20/22 05:46 Hct 39.5 % (37.0-47.0) 05/20/22 05:46 MCV 106.2 fL (81.0-99.0) H 05/20/22 05:46 MCH 32.0 pg (27.0-31.0) H 05/20/22 05:46 MCHC 30.1 g/dL (32.0-36.0) L 05/20/22 05:46 RDW 13.2 % (12.0-15.0) 05/20/22 05:46 Plt Count 261 10^3/uL (130-450) 05/20/22 05:46 MPV 11.0 fL (7.9-10.8) H 05/20/22 05:46 Neut # (Auto) Not Reportable 05/20/22 05:46 Lymph # (Auto) Not Reportable 05/20/22 05:46 [place] # (Auto) Not Reportable 05/20/22 05:46 Eos # (Auto) Not Reportable 05/20/22 05:46 Baso # (Auto) Not Reportable 05/20/22 05:46 Absolute Nucleated RBC Not Reportable 05/20/22 05:46 Total Counted 100 05/20/22 05:46 Band Neuts % (Manual) 1 % (0-10) 05/20/22 05:46 Abnorm Lymph % (Manual) 0 % 05/20/22 05:46 Metamyelocytes % 1 % (-0) H 05/20/22 05:46 Myelocytes % 4 % (-0) H 05/20/22 05:46 Nucleated RBC % Not Reportable 05/20/22 05:46 Neutrophils # (Manual) 17.4 10^3/uL (1.5-6.6) H 05/20/22 05:46 Lymphocytes # (Manual) 0.6 10^3/uL (1.5-3.5) L 05/20/22 05:46 Monocytes # (Manual) 0.6 10^3/uL (0.0-1.0) 05/20/22 05:46 Eosinophils # (Manual) 0.0 10^3/uL (0-0.7) 05/20/22 05:46 Basophils # (Manual) 0.0 10^3/uL (0-0.1) 05/20/22 05:46 Differential Comment MANUAL DIFFERENTIAL 05/20/22 05:46 Manual Slide Review Indicated 05/19/22 09:26 WBC Morphology NORMAL APPEARANCE (NORMAL) 05/20/22 05:46 Platelet Estimate NORMAL (130-450,000) (NORMAL) 05/20/22 05:46 Platelet Morphology NORMAL APPEARANCE (NORMAL) 05/20/22 05:46 RBC Morph Micro Appear NORMAL APPEARANCE (NORMAL) 05/20/22 05:46 Sodium 137 mmol/L (135-145) 05/20/22 05:46 Potassium 4.6 mmol/L (3.5-5.0) 05/20/22 05:46 Chloride 103 mmol/L (101-111) 05/20/22 05:46 Carbon Dioxide 23 mmol/L (21-32) 05/20/22 05:46 Anion Gap 11.0 (6-13) 05/20/22 05:46 BUN 47 mg/dL (6-20) H 05/20/22 05:46 Creatinine 1.5 mg/dL (0.4-1.0) H 05/20/22 05:46 Estimated GFR (MDRD) 33 (>89) L 05/20/22 05:46 Glucose 227 mg/dL (70-100) H 05/20/22 05:46 Lactic Acid 2.1 mmol/L (0.5-2.2) 05/19/22 12:58 Uric Acid 6.7 mg/dL (2.6-7.2) 05/20/22 05:46 Calcium 10.0 mg/dL (8.5-10.3) 05/20/22 05:46 Magnesium 2.3 mg/dL (1.7-2.8) 05/20/22 05:46 Total Bilirubin 0.8 mg/dL (0.2-1.0) 05/19/22 09:26 AST 25 IU/L (10-42) 05/19/22 09:26 ALT 21 IU/L (10-60) 05/19/22 09:26 Alkaline Phosphatase 69 IU/L (42-121) 05/19/22 09:26 Total Protein 6.9 g/dL (6.7-8.2) 05/19/22 09:26 Albumin 3.2 g/dL (3.2-5.5) 05/19/22 09:26 Globulin 3.7 g/dL (2.1-4.2) 05/19/22 09:26 Albumin/Globulin Ratio 0.9 (1.0-2.2) L 05/19/22 09:26 Lipase 39 U/L (22-51) 05/19/22 09:26 Vitamin B12 756 pg/mL (180-914) 05/20/22 05:46 Folate 13.80 ng/mL (5.90 - >24.8) 05/20/22 05:46 Urine Color DARK YELLOW 05/19/22 12:34 Urine Clarity CLEAR (CLEAR) 05/19/22 12:34 Urine pH 5.5 PH (5.0-7.5) 05/19/22 12:34 Ur Specific [place] >=1.030 (1.002-1.030) H 05/19/22 12:34 Urine Protein TRACE mg/dL (NEGATIVE) 05/19/22 12:34 Urine Glucose (UA) NEGATIVE mg/dL (NEGATIVE) 05/19/22 12:34 Urine Ketones NEGATIVE mg/dL (NEGATIVE) 05/19/22 12:34 Urine Occult Blood NEGATIVE (NEGATIVE) 05/19/22 12:34 Urine Nitrite NEGATIVE (NEGATIVE) 05/19/22 12:34 Urine Bilirubin NEGATIVE (NEGATIVE) 05/19/22 12:34 Urine Urobilinogen 0.2 (NORMAL) E.U./dL (NORMAL) 05/19/22 12:34 Ur Leukocyte Esterase NEGATIVE (NEGATIVE) 05/19/22 12:34 Ur Microscopic Review NOT INDICATED 05/19/22 12:34 Urine Culture Comments NOT INDICATED 05/19/22 12:34 SARS-CoV-2 (PCR) NOT DETECTED 05/19/22 13:53
[2022-05-20] MEDS: BUDESONIDE 0.5 MG/2 ML NEB INH SCH (18:42)
[2022-05-20] MEDS ORDERED: KETOROLAC 30 MG/ML VIAL IVP PRN (19:04)
[2022-05-20] MEDS: SACCHAROMYCES BOULARDII 250 MG CAPSULE PO SCH (19:22)
[2022-05-20] MEDS: FAMOTIDINE 20 MG TABLET PO SCH (20:46)
[2022-05-21] MEDS: SODIUM CHLORIDE FLUSH 0.9% 10 ML SYRINGE IVP SCH ×3 (00:05→16:42)
[2022-05-21] MEDS: CEFAZOLIN 2G/50ML 0.9% NS 2 GM/50 ML BAG IV SCH ×3 (04:25→20:51)
[2022-05-21 04:41] LABS: BASOPHILS % (AUTO) 0.3 %; HCT - HEMATOCRIT 34.7 % (37.0-47.0); HGB - HEMOGLOBIN 10.8 g/dL (12.0-16.0); MEAN CORPUSCULAR HEMOGLOBIN 32.7 pg (27.0-31.0); MEAN CORPUSCULAR HGB CONC 31.1 g/dL (32.0-36.0); MEAN CORPUSCULAR VOLUME 105.2 fL (81.0-99.0); MEAN PLATELET VOLUME 11.2 fL (7.9-10.8); MONOCYTES % (AUTO) 2.7 %; NEUTROPHILS % (AUTO) 89.5 %; PLT - PLATELET COUNT 274 10^3/uL (130-450); RED CELL DISTRIBUTION WIDTH 13.1 % (12.0-15.0); WHITE BLOOD COUNT 26.3 x10^3/uL (4.8-10.8)
[2022-05-21 04:48] LABS: CALCIUM 10.1 mg/dL (8.5-10.3); CREATININE 1.4 mg/dL (0.4-1.0); URIC ACID 6.7 mg/dL (2.6-7.2)
[2022-05-21 05:03] LABS: ABNORMAL LYMPHS % (MANUAL) 0 %
[2022-05-21 05:17] LABS: BAND NEUTROPHILS % (MANUAL) 5 %; BASOPHILS # (MANUAL) 0.3 10^3/uL (0-0.1); BASOPHILS % (MANUAL) 1 %; DIFFERENTIAL COMMENT MANUAL DIFFERENTIAL; LYMPHOCYTES # (MANUAL) 0.5 10^3/uL (1.5-3.5); LYMPHOCYTES % (MANUAL) 2 %; METAMYELOCYTES % (MANUAL) 2 %; MONOCYTES # (MANUAL) 0.3 10^3/uL (0.0-1.0); MYELOCYTES % (MANUAL) 1 %; NEUTROPHILS # (MANUAL) 24.5 10^3/uL (1.5-6.6); PLATELET ESTIMATE, MANUAL NORMAL (130-450,000) (NORMAL); RBC MORPHOLOGY (MULTIPLE) NORMAL APPEARANCE (NORMAL)
[2022-05-21] MEDS: HYDROCORTISONE SUCCINATE 100 MG/2 ML VIAL IVP SCH ×3 (06:00→21:00)
[2022-05-21] MEDS: BUDESONIDE 0.5 MG/2 ML NEB INH SCH ×2 (07:02→16:39)
[2022-05-21] MEDS: IPRATROPIUM 0.2 MG/ML NEB INH SCH ×4 (07:02→16:39)
[2022-05-21] MEDS: METOPROLOL SUCCINATE 25 MG TABLET PO SCH (08:42)
[2022-05-21] MEDS: ASPIRIN EC 81 MG TABLET PO SCH (08:42)
[2022-05-21] MEDS: allopurinoL 100 MG TABLET PO SCH (08:42)
[2022-05-21] MEDS: APIXABAN 5 MG TABLET PO SCH ×2 (08:42→20:51)
[2022-05-21] MEDS: SACCHAROMYCES BOULARDII 250 MG CAPSULE PO SCH ×2 (08:42→16:43)
[2022-05-21] MEDS: LOSARTAN 50 MG TABLET PO SCH (08:42)
[2022-05-21] MEDS: MULTIVITAMIN W/MINERALS TABLET PO SCH (08:42)
[2022-05-21] MEDS: FAMOTIDINE 20 MG TABLET PO SCH ×2 (08:42→20:51)
[2022-05-21] MEDS ORDERED: LOSARTAN 50 MG TABLET PO SCH (09:00)
--- NOTE | 2022-05-21 12:34 | PROVIDER PROGRESS NOTE ---
Assessment/Plan - Problem List (1) Cellulitis of right foot Assessment/Plan: Patient was admitted due to a worsening infection and worsened confusion, despite being on cephalexin for 4 days. She was also immunocompromised, being on daily Prednisone (she does appear Cushingoid). She was started on IV antibiotics Vanco and Ceftriaxone yesterday. All labs were reviewed. Her WBC went up from 18 to 19 to 26 today (but she is on Hydrocortisone at stress doses) The wound culture is growing MSStaph aureus We changed her antibx to Ancef 2 g IV q8h on 05/20, based on the Staph aureus wound cx sensitivities. Plan: Await blood culture results We will give pain medications as needed Follow CBC daily. I suspect the WBC will decrease as we change manager from high dose Hydrocortisone to oral Prednisone tomorrow. (2) MSSA infection Staph aureus is growing in the wound cx. It is pansensitive. Plan: As in #1 (3) Tophaceous gout Conclusion/Plan: A tophus opened and this is the source of the cellulitis infection. She said she is not on allopurinol, but her med list indicates she is on allopurinol. She had CT w/ contrast imaging done yesterday and it was read as cellulitis, osteomyelitis and septic arthritis, and also the 2nd toe has a fracture. We resumed her home dose of allopurinol Her uric acid level came back at 6. Today a consult was done by Orthopedist Dr Hough. He thinks the fracture and the bone changes that were read as osteo are from gouty destruction. He recommended to treat the cellulitis and the gout and that she will likely not need debridement or surgery. She will need an Ortho F/U after discharge however. Plan: Continue to give pain meds as needed, oxycodone made her too sleepy, I ordered Toradol. Continue to give 1 more day of IV hydrocortisone as stress dose steroids, while she is not on her daily oral prednisone. Will resume oral Prednisone tomorrow Target uric level is 4 or under to promote healing, as per Wound doctor, so will increase the allopurinol dose. Continue PT and OT to prevent deconditioning. But this lady was already minimally active at home, did no laundry or cooking or driving anymore. She mostly sat in her house, reported to me by Shamika Rucker NP (4) Fall at home Conclusion/Plan: Palliative Care provider Shamika Rucker NP came to see her today and provided me with details about her past history yesterday. Patient has had multiple falls at home. Patient mostly sits in her chair at home and furniture surfs when walking. She is getting forgetful, and that definitely was worsened by the infection. So far her orthostatic vital sign checks are normal Plan: Continue on telemetry to watch for arrhythmias Continue orthostatic vital sign checks as she starts to get up more Continue her usual cardiac meds with holding parameters for low BP. (5) L hip pain Conclusion/Plan: Improved with pain meds This was noticed by the overnight RN when they had to reposition her in her bed satrting the first night here. The patient also told Shamika Rucker that she had pain in L hip. Plain films of the left hip and pelvis were done after admission and showed no fracture, just arthritic changes. I informed the patient yesterday. Plan: Give pain meds as needed (6) Rhabdomyolysis Conclusion/Plan: Patient was found on the ground of her home by her caregiver, and it is not known how long she was down on the ground. No CK was done at admission in the ED. A CK was done after admission. Her labs were all reviewed today. Her CK was elevated at 358 and has decreased to normal today at 177. Therefore, she did have mild rhabdo. She received 2 days of IV fluids, stopped 05/20. Plan: Avoid nephrotoxins. (7) Confusion Improved By report from Shamika Rucker NP, she was more confused than her typical confusion, at presentation. Her RN even notices improvement today compared to yesterday. We stopped the oxycodone 10 mg dose that she got yesterday 05/20 and made her sleepy and confused. Plan: We will try to limit narcotics that can sedate her and confuse her. Continue Ketolorac prn, give this with food or milk and Pepcid po BID started, since she is also on DOAC and baby aspirin daily. Continue with her O2 and continue her home CPAP while she is here. (8) COPD (chronic obstructive pulmonary disease) Conclusion/Plan: Clinically, she does not appear to have a COPD exacerbation currently. Plan: We will continue with her supplemental oxygen, keeping saturations 90 to 94% Continue with her usual COPD meds as well (9) Acute kidney injury superimposed on CKD Conclusion/Plan: Improved. Labs were all reviewed today. Her creat was 1.5 yesterday, and is down to 1.4 today (after receiving 2 days of IV fluids and being off her Spironolactone and Lasix for 3 days) This was likely from volume depletion caused by the infection. Plan: Will resume her Spironolactone starting 05/22. Will not restart the Lasix, as she is clinically not volume overloaded and we now know her LVEF (see #10) Follow BMP daily (10) Chronic a-fib Conclusion/Plan: HR is controlled Plan: Continue on telemetry We will keep her on her usual heart rate slowing meds and anticoagulants. If debridement is needed, her DOAC will need to be stopped the day before. (11) Hx of heart failure Conclusion/Plan: We had no Echo in this EMR to confirm if she has systolic or diastolic heart failure. 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 An Echo was done yesterday 05/20 and that showed preserved LVEF and diastolic fnc could not be assessed in Afib. She does have a dilated RV, consistent with Cor P ulmonale. We stopped the IV fluids that she received for 2 days Beta-manuelito has been resumed, with holding parameters written. Plan: Continue to still hold Lasix Will restart Spironolactone probably in 1 more day. (11) ANNI on CPAP Conclusion/Plan: Plan: Continue her home CPAP device to be used while she is here. (12) Cor Pulmonale Conclusion/Plan: The Echo showd a dilated RV (but preserved RV function). This is consistent with Cor Pulmonale. Likely it was caused by her COPD, that is severe enough to need home oxygen 01/11. She does not have any gross edema of her legs yet, even after needing iv fluids, which she got for 2 days Plan: We will probably resume spironolactone tomorrow and Lasix the following day. - Current Meds Current Meds: Current Medications Generic Name Dose Route Start Last Admin Trade Name Freq PRN Reason Stop Dose Admin Acetaminophen 650 mg 05/19/22 16:29 05/20/22 05:55 Acetaminophen 325 Mg Tablet PO 650 mg Q4HR PRN Administration Pain 1 to 4, or Fever Allopurinol 100 mg 05/21/22 09:00 05/21/22 08:42 Allopurinol 100 Mg Tablet PO 100 mg DAILY KENDALL Administration Apixaban 5 mg 05/19/22 21:00 05/21/22 08:42 Apixaban 5 Mg Tablet PO 5 mg BID KENDALL Administration Aspirin 81 mg 05/20/22 09:00 05/21/22 08:42 Aspirin Ec 81 Mg Tablet PO 81 mg DAILY KENDALL Administration Budesonide 0.5 mg 05/20/22 09:52 05/21/22 07:02 Budesonide 0.5 Mg/2 Ml Neb INH 0.5 mg RTBID KENDALL Administration Famotidine 20 mg 05/20/22 21:00 05/21/22 08:42 Famotidine 20 Mg Tablet PO 20 mg BID KENDALL Administration Hydrocortisone Sodium Succinate 100 mg 05/19/22 22:00 05/21/22 06:00 Hydrocortisone Succinate 100 Mg/2 Ml Vial IVP 100 mg TID KENDALL Administration Cefazolin/Sodium Chloride 2 gm in 50 mls @ 100 mls/hr 05/20/22 12:00 05/21/22 04:55 Ancef 2 Grams/50ml IV Infused Q8H KENDALL Infusion Ipratropium [place] 0.5 mg 05/20/22 11:00 05/21/22 10:36 Ipratropium 0.2 Mg/Ml Neb INH 0.5 mg RTQID KENDALL Administration Losartan Potassium 50 mg 05/21/22 09:00 05/21/22 08:42 Losartan 50 Mg Tablet PO 50 mg DAILY KENDALL Administration Metoprolol Succinate 25 mg 05/20/22 09:00 05/21/22 08:42 Metoprolol Succinate 25 Mg Tablet PO 25 mg DAILY KENDALL Administration Multivitamins/Minerals 1 tab 05/21/22 08:00 05/21/22 08:42 Multivitamin W/Minerals Tablet PO 1 tab DAILYWM KENDALL Administration Saccharomyces Boulardii 250 mg 05/20/22 17:00 05/21/22 08:42 Saccharomyces Boulardii 250 Mg Capsule PO 250 mg BIDWM KENDALL Administration Sodium Chloride 10 ml 05/19/22 16:29 05/20/22 12:34 Sodium Chloride Flush 0.9% 10 Ml Syringe IVP 10 ml PRN PRN Administration NEEDED PER PROVIDER ORDERS Sodium Chloride 10 ml 05/19/22 17:00 05/21/22 08:42 Sodium Chloride Flush 0.9% 10 Ml Syringe IVP 10 ml 0100,0900,1700 KENDALL Administration Tramadol HCl 50 mg 05/19/22 16:43 05/21/22 10:11 Tramadol 50 Mg Tablet PO 50 mg Q4H PRN Administration PAIN - Lab Result Fish Bone Diagrams: 05/21/22 04:26 05/21/22 04:26 - Diagnostic Imaging Results Diagnostic Imaging Results: Final report reviewed - Additional Planning My Orders: My Active Orders 05/20/22 12:00 Cefazolin 2G/50Ml 0.9% Ns [Ancef 2 Grams/50Ml] 2 gm in 50 ml IV Q8H 05/20/22 17:00 Saccharomyces Boulardii [Florastor] 250 mg PO BIDWM 05/20/22 18:10 Daily Dressing Change [RC] DAILY Elevate Extremity [RC] PRN 05/20/22 18:19 Albuterol 2.5 mg INH RTQ4H PRN 05/20/22 18:59 Home [Home CPAP/BiPAP] [RC] .ONCE 05/20/22 19:05 Miscellaenous Nursing Order [RC] QSHIFT 05/20/22 19:07 Ketorolac Inj (30Mg) [Toradol Inj (30Mg)] 30 mg IVP Q6HR PRN 05/20/22 21:00 Famotidine [Pepcid] 20 mg PO BID 05/21/22 04:26 HEMOGLOBIN A1c% [CHEM] DAILYLAB 05/21/22 08:00 Multivitamin W/Minerals [Theragran M] 1 tab PO DAILYWM 05/21/22 09:00 Losartan [Cozaar] 50 mg PO DAILY allopurinoL [Zyloprim] 100 mg PO DAILY 05/21/22 13:30 VANCOMYCIN TROUGH [CHEM] Timed 05/22/22 05:00 BMP - BASIC METABOLIC PANEL [CHEM] DAILYLAB CBC - COMP BLD CT W/AUTO DIFF [HEME] DAILYLAB 05/23/22 05:00 BMP - BASIC METABOLIC PANEL [CHEM] DAILYLAB CBC - COMP BLD CT W/AUTO DIFF [HEME] DAILYLAB 05/24/22 05:00 BMP - BASIC METABOLIC PANEL [CHEM] DAILYLAB CBC - COMP BLD CT W/AUTO DIFF [HEME] DAILYLAB 05/27/22 09:00 Fluconazole [Diflucan] 150 mg PO Q7D Subjective - Subjective Patient Reports: Feeling Better (She says the new pain medicine has helped her pain a lot (received Toradol)) Objective Vital Signs: Vital Signs - 24 hr 05/20/22 05/20/22 05/20/22 16:00 16:11 18:45 Temperature 36.8 C Heart Rate 74 77 Heart Rate [ 72 Brachial] Respiratory 20 20 20 Rate Blood Pressure 125/81 H [Left Brachial artery] O2 Saturation 95 If not protocol 2 2 2 : Oxygen Flow, liters/minute 05/20/22 05/21/22 05/21/22 20:15 01:00 05:00 Temperature 36.3 C L 36.6 C 36.6 C Heart Rate Heart Rate [ 70 70 70 Brachial] Respiratory 16 18 18 Rate Blood Pressure 138/65 H 116/66 132/73 H [Left Brachial artery] O2 Saturation 89 L 94 93 If not protocol : Oxygen Flow, liters/minute 05/21/22 05/21/22 05/21/22 07:02 07:58 10:36 Temperature 36.6 C Heart Rate 75 71 Heart Rate [ 70 Brachial] Respiratory 18 18 20 Rate Blood Pressure 142/77 H [Left Brachial artery] O2 Saturation 99 If not protocol 2 : Oxygen Flow, liters/minute Oxygen O2 Source Room air I&O (Last 24 Hrs): Intake and Output Totals x24h 05/19/22 05/20/22 05/21/22 23:59 23:59 23:59 Intake Total 1500 3178.835 270 Output Total 1175 Balance 1500 2003.835 270 General: Alert, Oriented x3 HEENT: Mucous membr. moist/pink Neck: Supple, No JVD Neuro: Alert, Non Focal Cardiovascular: No murmurs Respiratory: No respiratory distress (wearing O2 per n.c.) Abdomen: Soft, Other (Obese) Extremities: Other (R foot and toes are bandaged, have drainage) - Results Results: Laboratory Results WBC 26.3 x10^3/uL (4.8-10.8) H 05/21/22 04:26 RBC 3.30 10^6/uL (4.20-5.40) L 05/21/22 04:26 Hgb 10.8 g/dL (12.0-16.0) L 05/21/22 04:26 Hct 34.7 % (37.0-47.0) L 05/21/22 04:26 MCV 105.2 fL (81.0-99.0) H 05/21/22 04:26 MCH 32.7 pg (27.0-31.0) H 05/21/22 04:26 MCHC 31.1 g/dL (32.0-36.0) L 05/21/22 04:26 RDW 13.1 % (12.0-15.0) 05/21/22 04:26 Plt Count 274 10^3/uL (130-450) 05/21/22 04:26 MPV 11.2 fL (7.9-10.8) H 05/21/22 04:26 Neut # (Auto) Not Reportable 05/21/22 04:26 Lymph # (Auto) Not Reportable 05/21/22 04:26 [place] # (Auto) Not Reportable 05/21/22 04:26 Eos # (Auto) Not Reportable 05/21/22 04:26 Baso # (Auto) Not Reportable 05/21/22 04:26 Absolute Nucleated RBC Not Reportable 05/21/22 04:26 Total Counted 100 05/21/22 04:26 Band Neuts % (Manual) 5 % (0-10) 05/21/22 04:26 Abnorm Lymph % (Manual) 0 % 05/21/22 04:26 Metamyelocytes % 2 % (-0) H 05/21/22 04:26 Myelocytes % 1 % (-0) H 05/21/22 04:26 Nucleated RBC % Not Reportable 05/21/22 04:26 Neutrophils # (Manual) 24.5 10^3/uL (1.5-6.6) H 05/21/22 04:26 Lymphocytes # (Manual) 0.5 10^3/uL (1.5-3.5) L 05/21/22 04:26 Monocytes # (Manual) 0.3 10^3/uL (0.0-1.0) 05/21/22 04:26 Eosinophils # (Manual) 0.0 10^3/uL (0-0.7) 05/21/22 04:26 Basophils # (Manual) 0.3 10^3/uL (0-0.1) H 05/21/22 04:26 Differential Comment MANUAL DIFFERENTIAL 05/21/22 04:26 Manual Slide Review Indicated 05/19/22 09:26 WBC Morphology NORMAL APPEARANCE (NORMAL) 05/20/22 05:46 Platelet Estimate NORMAL (130-450,000) (NORMAL) 05/21/22 04:26 Platelet Morphology NORMAL APPEARANCE (NORMAL) 05/20/22 05:46 RBC Morph Micro Appear NORMAL APPEARANCE (NORMAL) 05/21/22 04:26 Sodium 136 mmol/L (135-145) 05/21/22 04:26 Potassium 5.0 mmol/L (3.5-5.0) 05/21/22 04:26 Chloride 102 mmol/L (101-111) 05/21/22 04:26 Carbon Dioxide 24 mmol/L (21-32) 05/21/22 04:26 Anion Gap 10.0 (6-13) 05/21/22 04:26 BUN 47 mg/dL (6-20) H 05/21/22 04:26 Creatinine 1.4 mg/dL (0.4-1.0) H 05/21/22 04:26 Estimated GFR (MDRD) 35 (>89) L 05/21/22 04:26 Glucose 175 mg/dL (70-100) H 05/21/22 04:26 Lactic Acid 2.1 mmol/L (0.5-2.2) 05/19/22 12:58 Uric Acid 6.7 mg/dL (2.6-7.2) 05/21/22 04:26 Calcium 10.1 mg/dL (8.5-10.3) 05/21/22 04:26 Magnesium 2.3 mg/dL (1.7-2.8) 05/20/22 05:46 Total Bilirubin 0.8 mg/dL (0.2-1.0) 05/19/22 09:26 AST 25 IU/L (10-42) 05/19/22 09:26 ALT 21 IU/L (10-60) 05/19/22 09:26 Alkaline Phosphatase 69 IU/L (42-121) 05/19/22 09:26 Total Creatine Kinase 177 IU/L (22-269) 05/21/22 04:26 Total Protein 6.9 g/dL (6.7-8.2) 05/19/22 09:26 Albumin 3.2 g/dL (3.2-5.5) 05/19/22 09:26 Globulin 3.7 g/dL (2.1-4.2) 05/19/22 09:26 Albumin/Globulin Ratio 0.9 (1.0-2.2) L 05/19/22 09:26 Lipase 39 U/L (22-51) 05/19/22 09:26 Vitamin B12 756 pg/mL (180-914) 05/20/22 05:46 Folate 13.80 ng/mL (5.90 - >24.8) 05/20/22 05:46 Urine Color DARK YELLOW 05/19/22 12:34 Urine Clarity CLEAR (CLEAR) 05/19/22 12:34 Urine pH 5.5 PH (5.0-7.5) 05/19/22 12:34 Ur Specific [place] >=1.030 (1.002-1.030) H 05/19/22 12:34 Urine Protein TRACE mg/dL (NEGATIVE) 05/19/22 12:34 Urine Glucose (UA) NEGATIVE mg/dL (NEGATIVE) 05/19/22 12:34 Urine Ketones NEGATIVE mg/dL (NEGATIVE) 05/19/22 12:34 Urine Occult Blood NEGATIVE (NEGATIVE) 05/19/22 12:34 Urine Nitrite NEGATIVE (NEGATIVE) 05/19/22 12:34 Urine Bilirubin NEGATIVE (NEGATIVE) 05/19/22 12:34 Urine Urobilinogen 0.2 (NORMAL) E.U./dL (NORMAL) 05/19/22 12:34 Ur Leukocyte Esterase NEGATIVE (NEGATIVE) 05/19/22 12:34 Ur Microscopic Review NOT INDICATED 05/19/22 12:34 Urine Culture Comments NOT INDICATED 05/19/22 12:34 SARS-CoV-2 (PCR) NOT DETECTED 05/19/22 13:53
--- NOTE | 2022-05-21 12:49 | CONSULTATION NOTE ---
Referring Provider Name of Referring Provider:: Dr. Grey Consult Date: 05/21/22 Chief Complaint - Chief Complaint Chief Complaint: right forefoot pain and swelling History of Present Illness - History Obtained From Records Reviewed: Yes History obtained from: Patient and consulting physician Exam Limitations: Patient mental status, poor memory - History of Present Illness HPI Comment/Other: This is a 87-year-old woman admitted to the hospital for right foot pain, swelling and redness treated with oral antibiotics for about 4 days and then admitted to the hospital service because of failure to improve with treatment. She has a history of COPD treated with chronic prednisone and albuterol. She also has a history of gout and is treated with allopurinol. She developed changes to the forefoot particularly the great toe and to lesser degree the second toe of the right foot with pain, swelling, redness and some drainage from the great toe. This made it difficult to ambulate and bear weight. She denies fever or chills. She has had a CT scan to the right foot which suggested topha ceous gout and osteomyelitis to great and second toes. She does not seem to be improving with regard to her white blood cell count but seems to be better since admission as the redness and swelling to her leg above the foot has improved. She denies symptoms of neuropathy. She has no symptoms of ischemia to right foot. She quit smoking in about 1973. She also has seen wound care. History - Past Medical History Cardiovascular: reports: Congestive heart failure, Hypertension, Coronary artery disease, [place], Atrial fibrillation Respiratory: reports: COPD, Shortness of breath, Sleep apnea, CPAP use Neuro: reports: Headaches, Peripheral neuropathy, Other Endocrine/Autoimmune: reports: Other (She is on Prednisone for her arthritis, therefore is immunocompromised.) GI: reports: None RELOCATION ASSOCIATE: reports: Breast cancer : reports: Incontinence, Renal insuffiency HEENT: reports: Chronic vision loss, Macular degeneration, Other Psych: reports: None Musculoskeletal: reports: Osteoarthritis, Gout, Chronic back pain Derm: reports: Other MRSA Hx?: No Other Past Medical History: 2L NC - Past Surgical History Ortho: reports: Knee replacement /RELOCATION ASSOCIATE: reports: Other Cardiovascular: reports: Coronary stent, Pacemaker, Other - Family & Social History Family History: Mother: , CVA/TIA (age 74), Hypertension, Father: , Cancer (colon at 88), Sister: Alive and Well, , Alzheimer's Disease Family History Comment/Other: Unknown, she cannot remember Living arrangement: At home Living Situation: Alone (HAs carfegivers) Social History Notes: No alcohol intake. She only smoked from age [age]. 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 She lives alone. She no longer drives a car. She claims that 2 children are close and come to assist her with laundry and cleaning and making meals. - Substance History Use: Uses substance without health or social issues: NONE - POLST Patient has POLST: Yes Meds/Allgy - Home Medications Home Medications: Ambulatory Orders Medication Instructions Recorded Confirmed Spironolactone 12.5 mg PO DAILY 12/06/13 05/19/22 Tiotropium [place] [Spiriva] 2 puffs INH DAILY 12/06/13 05/19/22 Aspirin [Adult Low Dose Aspirin EC] 1 tab PO DAILY 07/12/17 05/19/22 Rivaroxaban [Xarelto] 15 mg PO QDDINNER 07/12/17 05/20/22 Furosemide [Lasix] 40 - 80 mg PO DAILY 07/25/18 05/20/22 Metoprolol Succinate [Toprol Xl] 25 mg PO DAILY 03/18/21 05/19/22 Albuterol Sulf [Ventolin Hfa 1 - 2 puffs INH Q4HR PRN 04/09/21 05/19/22 Inhaler] Acetaminophen [Pain Relief Extra 1,000 mg PO BID MDD 3000 mg 07/17/21 05/19/22 Strength] Budesonide [Pulmicort] 0.5 mg INH BID PRN 07/17/21 05/20/22 traMADol [Ultram] 50 - 100 mg PO Q4-6H PRN 05/19/22 05/20/22 Fluconazole [Diflucan] 1 tablet PO Q7D 05/20/22 05/20/22 Losartan Potassium [Cozaar] 100 mg PO DAILY 05/20/22 05/20/22 allopurinoL [Zyloprim] 100 mg PO DAILY 05/20/22 05/20/22 cephALEXin [Keflex] 500 mg PO TID 05/20/22 05/20/22 predniSONE [Deltasone] 10 mg PO DAILY 05/20/22 05/20/22 - Allergies Allergies/Adverse Reactions: Allergies Allergy/AdvReac Type Severity Reaction Status Date / Time alprazolam [From Xanax] Allergy Unknown Verified 11/19/21 11:37 azithromycin [From Zithromax] Allergy Unknown Verified 11/19/21 11:37 warfarin Allergy Rash Verified 11/19/21 11:37 Exam - Vital Signs Vital Signs: Vital Signs x48h Temp Pulse Pulse Resp BP Pulse Ox O2 Flow Rate 05/21/22 10:36 71 20 05/21/22 07:58 36.6 C 70 18 142/77 H 99 05/21/22 07:02 75 18 2 05/21/22 05:00 36.6 C 70 18 132/73 H 93 - Physical Exam General Appearance: positive: No acute distress Comments/Other: In the right foot shows no signs of acute ischemia. Skin is intact to all toes except for the great toe where there is a small sinus that communicates with the great toe metatarsal phalangeal joint. There is no purulent discharge. There is some serous discharge. I do not see any obvious tophaceous discharge. There is swelling, redness about the great and second toes that extends to right lower leg. There are signs that the swelling and cellulitis to the right lower leg have improved and are more localized to the forefoot now. She has limited and painful movement of her great toe. Gross sensation is intact. Conclusion and Plan - Lab Results Laboratory Results 05/21/22 04:26: Sodium 136, Potassium 5.0, Chloride 102, Carbon Dioxide 24, Anion Gap 10.0, BUN 47 H, Creatinine 1.4 H, Estimated GFR (MDRD) 35 L, Glucose 175 H, Uric Acid 6.7, Calcium 10.1, Total Creatine Kinase 177 05/21/22 04:26: WBC 26.3 H, RBC 3.30 L, Hgb 10.8 L, Hct 34.7 L, MCV 105.2 H, MCH 32.7 H, MCHC 31.1 L, RDW 13.1, Plt Count 274, MPV 11.2 H, Neut # (Auto) Not Reportable, Lymph # (Auto) Not Reportable, [place] # (Auto) Not Reportable, Eos # (Auto) Not Reportable, Baso # (Auto) Not Reportable, Absolute Nucleated RBC Not Reportable, Total Counted 100, Band Neuts % (Manual) 5, Abnorm Lymph % (Manual) 0, Metamyelocytes % 2 H, Myelocytes % 1 H, Nucleated RBC % Not Reportable, Neutrophils # (Manual) 24.5 H, Lymphocytes # (Manual) 0.5 L, Monocytes # (Manual) 0.3, Eosinophils # (Manual) 0.0, Basophils # (Manual) 0.3 H, Differential Comment MANUAL DIFFERENTIAL, Platelet Estimate NORMAL (130- 450,000), RBC Morph Micro Appear NORMAL APPEARANCE 05/20/22 05:46: Total Creatine Kinase 318 H 05/20/22 05:46: Uric Acid 6.7 05/20/22 05:46: Vitamin B12 756, Folate 13.80 05/20/22 05:46: Sodium 137, Potassium 4.6, Chloride 103, Carbon Dioxide 23, Anion Gap 11.0, BUN 47 H, Creatinine 1.5 H, Estimated GFR (MDRD) 33 L, Glucose 227 H, Calcium 10.0, Magnesium 2.3 05/20/22 05:46: WBC 19.5 H, RBC 3.72 L, Hgb 11.9 L, Hct 39.5, MCV 106.2 H, MCH 32.0 H, MCHC 30.1 L, RDW 13.2, Plt Count 261, MPV 11.0 H, Neut # (Auto) Not Reportable, Lymph # (Auto) Not Reportable, [place] # (Auto) Not Reportable, Eos # (Auto) Not Reportable, Baso # (Auto) Not Reportable, Absolute Nucleated RBC Not Reportable, Total Counted 100, Band Neuts % (Manual) 1, Abnorm Lymph % (Manual) 0, Metamyelocytes % 1 H, Myelocytes % 4 H, Nucleated RBC % Not Reportable, Neutrophils # (Manual) 17.4 H, Lymphocytes # (Manual) 0.6 L, Monocytes # (Manual) 0.6, Eosinophils # (Manual) 0.0, Basophils # (Manual) 0.0, Differential Comment MANUAL DIFFERENTIAL, WBC Morphology NORMAL APPEARANCE, Platelet Estimate NORMAL (130-450,000), Platelet Morphology NORMAL APPEARANCE, RBC Morph Micro Appear NORMAL APPEARANCE 05/19/22 13:53: SARS-CoV-2 (PCR) NOT DETECTED 05/19/22 12:58: Lactic Acid 2.1 05/19/22 12:34: Urine Color DARK YELLOW, Urine Clarity CLEAR, Urine pH 5.5, Ur Specific [place] >=1.030 H, Urine Protein TRACE, Urine Glucose (UA) NEGATIVE, Urine Ketones NEGATIVE, Urine Occult Blood NEGATIVE, Urine Nitrite NEGATIVE, Urine Bilirubin NEGATIVE, Urine Urobilinogen 0.2 (NORMAL), Ur Leukocyte Esterase NEGATIVE, Ur Microscopic Review NOT INDICATED, Urine Culture Comments NOT INDICATED - Diagnostic Imaging Results Diagnostic Imaging Results: positive: See rad report - Consultation Note Consultation Note: The patient appears to have chronic tophaceous gout affecting mostly her great and second toe of the right foot, associated sinus from great toe metatarsal phalangeal joint consistent with gout or infection. She has soft tissue cellulitis involving most of the right lower extremity from foot to the knee but most of the cellulitis to the lower leg has improved despite increasing white blood cell count. Is very difficult to determine if this is osteomyelitis which is probably not likely as gouty arthritis can destroy bone as well as osteomyelitis. - Plan Plan: Tophaceous gout great and second toe right foot with secondary infection, mostly cellulitis. No surgical treatment is indicated at this time in my opinion. The cellulitis and gout needs to be brought under control, reevaluation in the orthopedic clinic for exam and x-ray. Local wound care can be rendered during the healing process, avoid shoewear until further healing occurs.
[2022-05-21 15:25] LABS: ESTIMATED AVERAGE GLUCOSE 131 mg/dL (70-100); HEMOGLOBIN A1c% 6.2 % (4.27-6.07)
[2022-05-22] MEDS: SODIUM CHLORIDE FLUSH 0.9% 10 ML SYRINGE IVP SCH ×3 (04:23→16:32)
[2022-05-22] MEDS: CEFAZOLIN 2G/50ML 0.9% NS 2 GM/50 ML BAG IV SCH ×3 (04:23→19:07)
[2022-05-22 05:16] LABS: BASOPHILS % (AUTO) 0.2 %; HCT - HEMATOCRIT 38.8 % (37.0-47.0); HGB - HEMOGLOBIN 11.8 g/dL (12.0-16.0); MEAN CORPUSCULAR HEMOGLOBIN 31.3 pg (27.0-31.0); MEAN CORPUSCULAR HGB CONC 30.4 g/dL (32.0-36.0); MEAN CORPUSCULAR VOLUME 102.9 fL (81.0-99.0); MEAN PLATELET VOLUME 10.6 fL (7.9-10.8); MONOCYTES % (AUTO) 2.7 %; NEUTROPHILS % (AUTO) 89.4 %; PLT - PLATELET COUNT 323 10^3/uL (130-450); RED BLOOD COUNT 3.77 10^6/uL (4.20-5.40); RED CELL DISTRIBUTION WIDTH 12.9 % (12.0-15.0); WHITE BLOOD COUNT 21.6 x10^3/uL (4.8-10.8)
[2022-05-22 05:29] LABS: ABNORMAL LYMPHS % (MANUAL) 0 %
[2022-05-22 05:31] LABS: CALCIUM 10.7 mg/dL (8.5-10.3); CREATININE 1.6 mg/dL (0.4-1.0); POTASSIUM 5.1 mmol/L (3.5-5.0)
[2022-05-22 06:40] LABS: BAND NEUTROPHILS % (MANUAL) 2 %; DIFFERENTIAL COMMENT MANUAL DIFFERENTIAL; LYMPHOCYTES # (MANUAL) 0.9 10^3/uL (1.5-3.5); LYMPHOCYTES % (MANUAL) 4 %; METAMYELOCYTES % (MANUAL) 1 %; MONOCYTES # (MANUAL) 0.6 10^3/uL (0.0-1.0); MYELOCYTES % (MANUAL) 2 %; NEUTROPHILS # (MANUAL) 19.2 10^3/uL (1.5-6.6); PLATELET ESTIMATE, MANUAL NORMAL (130-450,000) (NORMAL); PROMYELOCYTES % (MANUAL) 1 %; RBC MORPHOLOGY (MULTIPLE) NORMAL APPEARANCE (NORMAL)
[2022-05-22] MEDS: BUDESONIDE 0.5 MG/2 ML NEB INH SCH ×2 (07:12→17:24)
[2022-05-22] MEDS: IPRATROPIUM 0.2 MG/ML NEB INH SCH ×4 (07:12→17:24)
[2022-05-22] MEDS: ACETAMINOPHEN 325 MG TABLET PO PRN (09:10)
[2022-05-22] MEDS: METOPROLOL SUCCINATE 25 MG TABLET PO SCH (09:11)
[2022-05-22] MEDS: FAMOTIDINE 20 MG TABLET PO SCH ×2 (09:11→20:00)
[2022-05-22] MEDS: MULTIVITAMIN W/MINERALS TABLET PO SCH (09:11)
[2022-05-22] MEDS: SACCHAROMYCES BOULARDII 250 MG CAPSULE PO SCH ×2 (09:11→16:32)
[2022-05-22] MEDS: ASPIRIN EC 81 MG TABLET PO SCH (09:11)
[2022-05-22] MEDS: LOSARTAN 50 MG TABLET PO SCH (09:12)
[2022-05-22] MEDS: allopurinoL 100 MG TABLET PO SCH (09:12)
[2022-05-22] MEDS: predniSONE 5 MG TABLET PO SCH (09:12)
[2022-05-22] MEDS: APIXABAN 5 MG TABLET PO SCH ×2 (09:12→20:00)
[2022-05-22] MEDS: SODIUM CHLORIDE 0.45% 1,000 ML IV SCH ×2 (09:54→21:53)
--- NOTE | 2022-05-22 15:33 | PROVIDER PROGRESS NOTE ---
Assessment/Plan - Problem List (1) Cellulitis of right foot Assessment/Plan: Patient was admitted due to a worsening infection and worsened confusion, despite being on cephalexin for 4 days. 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 She was started on em[iric IV antibiotics Vanco and Ceftriaxone. All labs were reviewed. Her WBC went up from 18>> 19>> 26 yesterday, but she was on Hydrocortisone at stress doses for those days>> WBC improved to 18 today.) The wound culture is growing MSStaph aureus We changed her antibx to Ancef 2 g IV q8h on 05/20, based on the Staph aureus wound cx sensitivities. Plan: Await blood culture results We will give non-narcotic pain medications as needed Follow CBC daily. I suspect the WBC will decrease further since we stopped high dose Hydrocortisone and resumed oral Prednisone. Will order OOB to chair with legs elevated when she is OOB (2) MSSA infection Staph aureus is growing in the wound cx. It is pansensitive. Plan: As in #1 (3) Tophaceous gout Conclusion/Plan: A tophus opened and this is the source of the cellulitis infection. She said she is not on allopurinol, but her med list indicates she is on allopurinol. She had CT w/ contrast imaging done and it was read as cellulitis, osteomyelitis and septic arthritis, and also the 2nd toe has a fracture. We resumed her home dose of allopurinol A consult was done by Orthopedist Dr Hough. He thinks the fracture and the bone changes that were read as osteo are more likley from gouty destruction. He recommended to treat the cellulitis and the gout and that she will likely not need debridement or surgery. She will need an Ortho F/U after discharge however. Plan: Continue to give pain meds as needed, oxycodone made her too sleepy, I ordered Toradol. Cont on Prednisone Target uric level is 4 or under to promote healing, as per Wound doctor, so will increase the allopurinol dose. Continue PT and OT to prevent deconditioning. But this lady was already minimally active at home, did no laundry or cooking or driving anymore. She mostly sat in her house, reported to me by Shamika Rucker NP (4) Confusion Worsened By report from Shamika Rucker NP, she was more confused than her typical confusion, at presentation. We stopped the oxycodone 10 mg dose that she got 05/20 which made her sleepy and confused upon awakening. Then she got better the morning of 05/21. Since yesterday 05/21 afternoon, she has worsened: She could not remember what the Orthopedist told her, could not remember that I had spoken to her already, and was very focused on the wall clock. Plan: We will try to limit narcotics that can sedate her and confuse her. Continue Ketolorac prn, give this with food or milk and Pepcid po BID started, since she is also on DOAC and baby aspirin daily. Continue with her suppl O2, but will order max saturation 93%, so as not to get CO2 retention if her FIO2 is turned up. Continue her home CPAP while she is here. (5) Fall at home Conclusion/Plan: Palliative Care provider Shamika Rucker NP came to see her today and provided me with details about her past history yesterday. Patient has had multiple falls at home. Patient mostly sits in her chair at home and furniture surfs when walking. She is getting forgetful, and that definitely was worsened by the infection. So far her orthostatic vital sign checks are normal Plan: Continue on telemetry to watch for arrhythmias Continue orthostatic vital sign checks as she starts to get up more Continue her usual cardiac meds with holding parameters for low BP. PT and OT to continue (however she has been unintyerested with participating rtgus far, possibly from over-sedation (6) L hip pain Conclusion/Plan: Improved with pain meds This was noticed by the overnight RN when they had to reposition her in her bed satrting the first night here. The patient also told Shamika Rucker that she had pain in L hip. Plain films of the left hip and pelvis were done after admission and showed no fracture, just arthritic changes. I informed the patient yesterday. Plan: Give pain meds as needed (7) Rhabdomyolysis Conclusion/Plan: Patient was found on the ground of her home by her caregiver, and it is not known how long she was down on the ground. No CK was done at admission in the ED. A CK was done after admission. Her labs were all reviewed today. Her CK was elevated at 358 and has decreased to normal today at 177. Therefore, she did have mild rhabdo. She received 2 days of IV fluids, stopped 05/20. Plan: Avoid nephrotoxins. (8) COPD (chronic obstructive pulmonary disease) Conclusion/Plan: Clinically, she does not appear to have a COPD exacerbation currently. Plan: We will continue with her supplemental oxygen, keeping saturations 90 to 94% Continue with her usual COPD meds as well (9) Acute kidney injury superimposed on CKD Conclusion/Plan: Improved. Labs were all reviewed today. Her creat improbed after receiving 2 days of IV fluids and being off her Spironolactone and Lasix for 3 days This was likely from volume depletion caused by the infection. Plan: Will resume her Spironolactone starting 05/22 or 05/23. Will not restart the Lasix, as she is clinically not volume overloaded and we now know her LVEF (see #10) Follow BMP daily (10) Chronic a-fib Conclusion/Plan: HR is controlled Plan: Continue on telemetry We will keep her on her usual heart rate slowing meds and anticoagulants. If debridement is needed, her DOAC will need to be stopped the day before. (11) Hx of heart failure Conclusion/Plan: We had no Echo in this EMR to confirm if she has systolic or diastolic heart failure. She is on cardiac medications for systolic heart failure including Spironolactone and Lasix and has a Photography Assistant, but could not report details of her cardiac Hx. An Echo was done yesterday 05/20 and that showed preserved LVEF and diastolic fnc could not be assessed in Afib. She does have a dilated RV, consistent with Cor Pulmonale. We stopped the IV fluids that she received for 2 days Beta-manuelito has been resumed, with holding parameters written. Plan: Continue to still hold Lasix Will restart Spironolactone probably in 1-2 more day. (11) ANNI on CPAP Conclusion/Plan: Plan: Continue her home CPAP device to be used while she is here. (12) Cor Pulmonale Conclusion/Plan: The Echo showd a dilated RV (but preserved RV function). This is consistent with Cor Pulmonale. Likely it was caused by her COPD, that is severe enough to need home oxygen /. She does not have any gross edema of her legs yet, even after needing iv fluids, which she got for 2 days Plan: We will probably resume spironolactone tomorrow and Lasix the following day. - Current Meds Current Meds: Current Medications Generic Name Dose Route Start Last Admin Trade Name Freq PRN Reason Stop Dose Admin Acetaminophen 650 mg 05/19/22 16:29 05/22/22 09:10 Acetaminophen 325 Mg Tablet PO 650 mg Q4HR PRN Administration Pain 1 to 4, or Fever Allopurinol 100 mg 05/21/22 09:00 05/22/22 09:12 Allopurinol 100 Mg Tablet PO 100 mg DAILY KENDALL Administration Apixaban 5 mg 05/19/22 21:00 05/22/22 09:12 Apixaban 5 Mg Tablet PO 5 mg BID KENDALL Administration Aspirin 81 mg 05/20/22 09:00 05/22/22 09:11 Aspirin Ec 81 Mg Tablet PO 81 mg DAILY KENDALL Administration Budesonide 0.5 mg 05/20/22 09:52 05/22/22 07:12 Budesonide 0.5 Mg/2 Ml Neb INH 0.5 mg RTBID KENDALL Administration Famotidine 20 mg 05/20/22 21:00 05/22/22 09:11 Famotidine 20 Mg Tablet PO 20 mg BID KENDALL Administration Cefazolin/Sodium Chloride 2 gm in 50 mls @ 100 mls/hr 05/20/22 12:00 05/22/22 12:35 Ancef 2 Grams/50ml IV Infused Q8H KENDALL Infusion Sodium Chloride 1,000 mls @ 83.333 mls/hr 05/22/22 10:00 05/22/22 09:54 Normal Saline 0.45% IV 83.333 mls/hr .Q12H KENDALL Administration Ipratropium [place] 0.5 mg 05/20/22 11:00 05/22/22 11:05 Ipratropium 0.2 Mg/Ml Neb INH 0.5 mg RTQID KENDALL Administration Losartan Potassium 50 mg 05/21/22 09:00 05/22/22 09:12 Losartan 50 Mg Tablet PO 50 mg DAILY KENDALL Administration Metoprolol Succinate 25 mg 05/20/22 09:00 05/22/22 09:11 Metoprolol Succinate 25 Mg Tablet PO 25 mg DAILY KENDALL Administration Multivitamins/Minerals 1 tab 05/21/22 08:00 05/22/22 09:11 Multivitamin W/Minerals Tablet PO 1 tab DAILYWM KENDALL Administration Prednisone 5 mg 05/22/22 08:00 05/22/22 09:12 Prednisone 5 Mg Tablet PO 5 mg DAILYWM KENDALL Administration Saccharomyces Boulardii 250 mg 05/20/22 17:00 05/22/22 09:11 Saccharomyces Boulardii 250 Mg Capsule PO 250 mg BIDWM KENDALL Administration Sodium Chloride 10 ml 05/19/22 16:29 05/20/22 12:34 Sodium Chloride Flush 0.9% 10 Ml Syringe IVP 10 ml PRN PRN Administration NEEDED PER PROVIDER ORDERS Sodium Chloride 10 ml 05/19/22 17:00 05/22/22 09:12 Sodium Chloride Flush 0.9% 10 Ml Syringe IVP 10 ml 0100,0900,1700 KENDALL Administration - Lab Result Fish Bone Diagrams: 05/23/22 05:20 05/23/22 05:20 - Additional Planning My Orders: My Active Orders 05/21/22 16:49 Incentive Spirometry - RT [RC] .tid as zoraida 05/22/22 08:00 predniSONE [Deltasone] 5 mg PO DAILYWM 05/22/22 10:00 Sodium Chloride 0.45% [Normal Saline 0.45%] 1,000 ml IV 83.333 mls/hr 05/22/22 15:04 Miscellaenous Nursing Order [RC] QSHIFT 05/23/22 05:00 BMP - BASIC METABOLIC PANEL [CHEM] DAILYLAB CBC - COMP BLD CT W/AUTO DIFF [HEME] DAILYLAB PT WITH INR [COAG] DAILYLAB 05/24/22 05:00 BMP - BASIC METABOLIC PANEL [CHEM] DAILYLAB CBC - COMP BLD CT W/AUTO DIFF [HEME] DAILYLAB 05/27/22 09:00 Fluconazole [Diflucan] 150 mg PO Q7D Subjective - Subjective Patient Reports: Other (She can sense that she is confused) Nursing Reports: Other (RN reported that the patient was focused on her clock all night, kept repeating the timeout loud and had almost no sleep last night.She is sleeping most of the daytime today.) Objective Vital Signs: Vital Signs - 24 hr 05/21/22 05/21/22 05/21/22 16:29 16:30 16:44 Temperature 36.5 C Heart Rate 70 Heart Rate [ 69 Brachial] Respiratory 14 20 Rate Blood Pressure 141/76 H [Left Brachial artery] O2 Saturation 99 94 If not protocol 3 1 2 : Oxygen Flow, liters/minute 05/21/22 05/22/22 05/22/22 20:15 00:07 01:19 Temperature 36.5 C 36.6 C Heart Rate Heart Rate [ 70 74 Brachial] Respiratory 20 20 20 Rate Blood Pressure 144/82 H 144/86 H [Left Brachial artery] O2 Saturation 94 95 91 L If not protocol 1 3 1 : Oxygen Flow, liters/minute 05/22/22 05/22/22 05/22/22 05:07 07:13 08:07 Temperature 36.6 C 36.4 C L Heart Rate 75 Heart Rate [ 70 70 Brachial] Respiratory 20 18 20 Rate Blood Pressure 122/79 144/86 H [Left Brachial artery] O2 Saturation 93 94 If not protocol 1 1 1 : Oxygen Flow, liters/minute 05/22/22 13:00 Temperature 36.3 C L Heart Rate Heart Rate [ 70 Brachial] Respiratory 20 Rate Blood Pressure 134/84 H [Left Brachial artery] O2 Saturation 94 If not protocol 1 : Oxygen Flow, liters/minute Oxygen O2 Source Nasal cannula I&O (Last 24 Hrs): Intake and Output Totals x24h 05/20/22 05/21/22 05/22/22 23:59 23:59 23:59 Intake Total 3178.835 2090 740 Output Total 1175 400 Balance 2003.835 1690 740 General: Alert, No acute distress HEENT: Mucous membr. moist/pink, Other (wearing O2 per n.c.) Neck: Supple Neuro: Alert, Disoriented (vs poor memory. No focal deficits.) Respiratory: No respiratory distress (while on her O2 via n.c.) Abdomen: Soft, Other (Obese) Extremities: Other (trace edema both ankles. R foot is bandage and on prox toes.) - Results Results: Laboratory Results WBC 21.6 x10^3/uL (4.8-10.8) H 05/22/22 05:03 RBC 3.77 10^6/uL (4.20-5.40) L 05/22/22 05:03 Hgb 11.8 g/dL (12.0-16.0) L 05/22/22 05:03 Hct 38.8 % (37.0-47.0) 05/22/22 05:03 MCV 102.9 fL (81.0-99.0) H 05/22/22 05:03 MCH 31.3 pg (27.0-31.0) H 05/22/22 05:03 MCHC 30.4 g/dL (32.0-36.0) L 05/22/22 05:03 RDW 12.9 % (12.0-15.0) 05/22/22 05:03 Plt Count 323 10^3/uL (130-450) 05/22/22 05:03 MPV 10.6 fL (7.9-10.8) 05/22/22 05:03 Neut # (Auto) Not Reportable 05/22/22 05:03 Lymph # (Auto) Not Reportable 05/22/22 05:03 [place] # (Auto) Not Reportable 05/22/22 05:03 Eos # (Auto) Not Reportable 05/22/22 05:03 Baso # (Auto) Not Reportable 05/22/22 05:03 Absolute Nucleated RBC Not Reportable 05/22/22 05:03 Total Counted 100 05/22/22 05:03 Band Neuts % (Manual) 2 % (0-10) 05/22/22 05:03 Abnorm Lymph % (Manual) 0 % 05/22/22 05:03 Metamyelocytes % 1 % (-0) H 05/22/22 05:03 Myelocytes % 2 % (-0) H 05/22/22 05:03 Promyelocytes % 1 % (-0) H 05/22/22 05:03 Nucleated RBC % Not Reportable 05/22/22 05:03 Neutrophils # (Manual) 19.2 10^3/uL (1.5-6.6) H 05/22/22 05:03 Lymphocytes # (Manual) 0.9 10^3/uL (1.5-3.5) L 05/22/22 05:03 Monocytes # (Manual) 0.6 10^3/uL (0.0-1.0) 05/22/22 05:03 Eosinophils # (Manual) 0.0 10^3/uL (0-0.7) 05/22/22 05:03 Basophils # (Manual) 0.0 10^3/uL (0-0.1) 05/22/22 05:03 Differential Comment MANUAL DIFFERENTIAL 05/22/22 05:03 Manual Slide Review Indicated 05/19/22 09:26 WBC Morphology NORMAL APPEARANCE (NORMAL) 05/20/22 05:46 Platelet Estimate NORMAL (130-450,000) (NORMAL) 05/22/22 05:03 Platelet Morphology NORMAL APPEARANCE (NORMAL) 05/20/22 05:46 RBC Morph Micro Appear NORMAL APPEARANCE (NORMAL) 05/22/22 05:03 Sodium 135 mmol/L (135-145) 05/22/22 05:03 Potassium 5.1 mmol/L (3.5-5.0) H 05/22/22 05:03 Chloride 103 mmol/L (101-111) 05/22/22 05:03 Carbon Dioxide 21 mmol/L (21-32) 05/22/22 05:03 Anion Gap 11.0 (6-13) 05/22/22 05:03 BUN 48 mg/dL (6-20) H 05/22/22 05:03 Creatinine 1.6 mg/dL (0.4-1.0) H 05/22/22 05:03 Estimated GFR (MDRD) 30 (>89) L 05/22/22 05:03 Glucose 198 mg/dL (70-100) H 05/22/22 05:03 Estimat Average Glucose 131 mg/dL (70-100) H 05/21/22 04:26 Hemoglobin A1c % 6.2 % (4.27-6.07) H 05/21/22 04:26 Lactic Acid 2.1 mmol/L (0.5-2.2) 05/19/22 12:58 Uric Acid 6.7 mg/dL (2.6-7.2) 05/21/22 04:26 Calcium 10.7 mg/dL (8.5-10.3) H 05/22/22 05:03 Magnesium 2.3 mg/dL (1.7-2.8) 05/20/22 05:46 Total Bilirubin 0.8 mg/dL (0.2-1.0) 05/19/22 09:26 AST 25 IU/L (10-42) 05/19/22 09:26 ALT 21 IU/L (10-60) 05/19/22 09:26 Alkaline Phosphatase 69 IU/L (42-121) 05/19/22 09:26 Total Creatine Kinase 177 IU/L (22-269) 05/21/22 04:26 Total Protein 6.9 g/dL (6.7-8.2) 05/19/22 09:26 Albumin 3.2 g/dL (3.2-5.5) 05/19/22 09:26 Globulin 3.7 g/dL (2.1-4.2) 05/19/22 09:26 Albumin/Globulin Ratio 0.9 (1.0-2.2) L 05/19/22 09:26 Lipase 39 U/L (22-51) 05/19/22 09:26 Vitamin B12 756 pg/mL (180-914) 05/20/22 05:46 Folate 13.80 ng/mL (5.90 - >24.8) 05/20/22 05:46 Urine Color DARK YELLOW 05/19/22 12:34 Urine Clarity CLEAR (CLEAR) 05/19/22 12:34 Urine pH 5.5 PH (5.0-7.5) 05/19/22 12:34 Ur Specific [place] >=1.030 (1.002-1.030) H 05/19/22 12:34 Urine Protein TRACE mg/dL (NEGATIVE) 05/19/22 12:34 Urine Glucose (UA) NEGATIVE mg/dL (NEGATIVE) 05/19/22 12:34 Urine Ketones NEGATIVE mg/dL (NEGATIVE) 05/19/22 12:34 Urine Occult Blood NEGATIVE (NEGATIVE) 05/19/22 12:34 Urine Nitrite NEGATIVE (NEGATIVE) 05/19/22 12:34 Urine Bilirubin NEGATIVE (NEGATIVE) 05/19/22 12:34 Urine Urobilinogen 0.2 (NORMAL) E.U./dL (NORMAL) 05/19/22 12:34 Ur Leukocyte Esterase NEGATIVE (NEGATIVE) 05/19/22 12:34 Ur Microscopic Review NOT INDICATED 05/19/22 12:34 Urine Culture Comments NOT INDICATED 05/19/22 12:34 SARS-CoV-2 (PCR) NOT DETECTED 05/19/22 13:53
[2022-05-23] MEDS: SODIUM CHLORIDE FLUSH 0.9% 10 ML SYRINGE IVP SCH ×3 (02:44→20:43)
[2022-05-23] MEDS: ACETAMINOPHEN 325 MG TABLET PO PRN ×2 (03:30→17:01)
[2022-05-23] MEDS: CEFAZOLIN 2G/50ML 0.9% NS 2 GM/50 ML BAG IV SCH ×3 (03:34→20:42)
[2022-05-23] MEDS: KETOROLAC 30 MG/ML VIAL IVP PRN (03:42)
[2022-05-23 05:28] LABS: BASOPHILS % (AUTO) 0.6 %; EOSINOPHILS % (AUTO) 0.5 %; HCT - HEMATOCRIT 39.3 % (37.0-47.0); HGB - HEMOGLOBIN 12.2 g/dL (12.0-16.0); LYMPHOCYTES % (AUTO) 6.7 %; MEAN CORPUSCULAR HEMOGLOBIN 32.2 pg (27.0-31.0); MEAN CORPUSCULAR VOLUME 103.7 fL (81.0-99.0); MEAN PLATELET VOLUME 10.6 fL (7.9-10.8); MONOCYTES % (AUTO) 5.9 %; NEUTROPHILS % (AUTO) 79.2 %; PLT - PLATELET COUNT 303 10^3/uL (130-450); RED BLOOD COUNT 3.79 10^6/uL (4.20-5.40); RED CELL DISTRIBUTION WIDTH 13.2 % (12.0-15.0)
[2022-05-23 05:35] LABS: INR 1.4 (0.8-1.2); PT - PROTHROMBIN TIME 15.1 secs (9.9-12.6)
[2022-05-23 05:37] LABS: CALCIUM 10.8 mg/dL (8.5-10.3); CREATININE 1.4 mg/dL (0.4-1.0); POTASSIUM 4.7 mmol/L (3.5-5.0)
[2022-05-23 05:38] LABS: ABNORMAL LYMPHS % (MANUAL) 0 %
[2022-05-23 06:08] LABS: BAND NEUTROPHILS % (MANUAL) 8 %; LYMPHOCYTES # (MANUAL) 0.9 10^3/uL (1.5-3.5); LYMPHOCYTES % (MANUAL) 5 %; METAMYELOCYTES % (MANUAL) 3 %; MONOCYTES # (MANUAL) 0.5 10^3/uL (0.0-1.0); MYELOCYTES % (MANUAL) 3 %; NEUTROPHILS # (MANUAL) 15.5 10^3/uL (1.5-6.6); PLATELET ESTIMATE, MANUAL NORMAL (130-450,000) (NORMAL); RBC MORPHOLOGY (MULTIPLE) NORMAL APPEARANCE (NORMAL)
[2022-05-23 06:09] LABS: DIFFERENTIAL COMMENT MANUAL DIFFERENTIAL
[2022-05-23] MEDS: IPRATROPIUM 0.2 MG/ML NEB INH SCH ×4 (08:15→19:16)
[2022-05-23] MEDS: BUDESONIDE 0.5 MG/2 ML NEB INH SCH ×2 (08:15→19:16)
[2022-05-23] MEDS: allopurinoL 100 MG TABLET PO SCH (08:51)
[2022-05-23] MEDS: APIXABAN 5 MG TABLET PO SCH ×2 (08:51→20:42)
[2022-05-23] MEDS: MULTIVITAMIN W/MINERALS TABLET PO SCH (08:51)
[2022-05-23] MEDS: ASPIRIN EC 81 MG TABLET PO SCH (08:51)
[2022-05-23] MEDS: LOSARTAN 50 MG TABLET PO SCH (08:51)
[2022-05-23] MEDS: FAMOTIDINE 20 MG TABLET PO SCH ×2 (08:51→20:42)
[2022-05-23] MEDS: SACCHAROMYCES BOULARDII 250 MG CAPSULE PO SCH ×2 (08:52→17:01)
[2022-05-23] MEDS: predniSONE 5 MG TABLET PO SCH (08:52)
[2022-05-23] MEDS: METOPROLOL SUCCINATE 25 MG TABLET PO SCH (08:52)
[2022-05-23] MEDS: SODIUM CHLORIDE 0.45% 1,000 ML IV SCH ×2 (10:30→22:07)
--- NOTE | 2022-05-23 15:06 | CT Report ---
PROCEDURE: HEAD WO INDICATIONS: Worsening confusion, had a fall 5 days ago TECHNIQUE: Noncontrast 4.5 mm thick angled axial sections acquired from the foramen magnum to the vertex. For r adiation dose reduction, the following was used: automated exposure control, adjustment of mA and/or kV according to patient size. COMPARISON: 05/19/2022 and 07/07/2021 FINDINGS: Image quality: Excellent. CSF spaces: Basal cisterns are patent. No extra-axial fluid collections. The ventricles are symmet smiley in size and shape. Brain: No intracranial bleeds or masses. There is cerebral volume loss for age, with resultant vent ricular and sulcal prominence. There are periventricular and deep white matter chronic small vessel ischemic changes. There is intracranial internal carotid artery atherosclerosis. Skull and face: Calvarium and visualized facial bones appear intact, without suspicious lesions. Sinuses: Visualized sinuses and mastoids are clear. IMPRESSION: No CT evidence of acute intracranial abnormalities. No significant changes from prior studies. Reviewed by: Emre Patel MD on 05/23/2022 3:05 PM PST Approved by: Emre Patel MD on 05/23/2022 3:05 PM PST Station ID: [id number]
--- NOTE | 2022-05-23 16:31 | PROVIDER PROGRESS NOTE ---
Assessment/Plan - Problem List (1) Cellulitis of right foot Assessment/Plan: Patient was admitted due to a worsening infection and worsened confusion, despite being on cephalexin for 4 days. 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 She was started on em[iric IV antibiotics Vanco and Ceftriaxone. All labs were reviewed. Her WBC went up from 18>> 19>> 26 improved to 21>> 18 today. The wound culture is growing MSStaph aureus We changed her antibx to Ancef 2 g IV q8h on 05/20, based on the Staph aureus wound cx sensitivities. Plan: Await blood culture results We will give non-narcotic pain medications as needed Continue OOB to chair with legs elevated when she is OOB Start more PT and OT therapy when less tired and less confused (2) Confusion Worsened even since yesterday. She is hallucinating ("seeing faces that she does not like" and seeing "parts of clothes"). She is tangential and goes off topic ("it is 10 to 2 but it shouldn't be, because it takes 48 hours to get thru 2 days"). She says she cannot remember all the details being told to her. She sleeps during the day and is awake all night, for the past 2 nights, per RN. By report from Shamika Rucker NP, she was more confused than her typical confusion, at presentation. We stopped the oxycodone 10 mg dose that she got 05/20 which made her sleepy and confused upon awakening. Then she got better the morning of 05/21. Since 05/21 afternoon, she has worsened. On 05/21, she could not remember what the Orthopedist told her. On 05/22, she could not remember that I had spoken to her already, and was very focused on the wall clock. Plan: Will get a repeat head CT to R/O stroke, since she had a he4ad CT to compare to from admission, and cannot get MRI due to having a pacemaker.. We have stopped all narcotics that can sedate her and confuse her. Continue Ketolorac prn, give this with food or milk and Pepcid po BID started, since she is also on DOAC and baby aspirin daily. Continue with her suppl O2, but I ordered max saturation to be 93%, so as not to get CO2 retention if her FIO2 is turned up. Her RN has seen CERTIFIED PHARMACY TECHNICIAN turn up the FIO2 on wall. Continue her home CPAP while sleeping, while she is here. I updated the daughter and the "live-in" caregiver, who visited at bedside today. (3) MSSA infection Staph aureus is growing in the wound cx. It is pansensitive. Plan: As in #1 (4) Tophaceous gout Conclusion/Plan: A tophus opened and this is the source of the cellulitis infection. She said she is not on allopurinol, but her med list indicates she is on allopurinol. She had CT w/ contrast imaging done and it was read as cellulitis, osteomyelitis and septic arthritis, and also the 2nd toe has a fracture. We resumed her home dose of allopurinol A consult was done by Orthopedist Dr Hough. He thinks the fracture and the bone changes that were read as osteo are more likley from gouty destruction. He recommended to treat the cellulitis and the gout and that she will likely not need debridement or surgery. She will need an Ortho F/U after discharge however. Plan: Continue to give pain meds as needed, oxycodone made her too sleepy, I ordered Toradol. Cont on Prednisone Target uric level is 4 or under to promote healing, as per Wound doctor, so will increase the allopurinol dose. Continue PT and OT to prevent deconditioning. But this lady was already minimally active at home, did no laundry or cooking or driving anymore. She mostly sat in her house, reported to me by Shamika Rucker NP (5) COPD (chronic obstructive pulmonary disease) Conclusion/Plan: Clinically, she does not appear to have a COPD exacerbation currently. She is on Home O2 and the sttings are not known. Plan: We will continue with her supplemental oxygen, keeping saturations 90 to 93% Continue with her usual COPD meds as well (6) Fall at home Conclusion/Plan: Palliative Care provider Shamika Rucker NP came to see her today and provided me with details about her past history yesterday. Patient has had multiple falls at home. Patient mostly sits in her chair at home and furniture surfs when walking. She is getting forgetful, and that definitely was worsened by the infection. So far her orthostatic vital sign checks are normal Plan: Continue on telemetry to watch for arrhythmias Continue orthostatic vital sign checks as she starts to get up more Continue her usual cardiac meds with holding parameters for low BP. PT and OT to continue (however she has been uninterested with participating thus far, possibly from over-sedation and confusion) (7) L hip pain Conclusion/Plan: Improved with pain meds This was noticed by the overnight RN when they had to reposition her in her bed starting the first night here. The patient also told Shamika Rucker that she had pain in L hip. Plain films of the left hip and pelvis were done after admission and showed no fracture, just arthritic changes. I informed the patient yesterday. Plan: Give pain meds as needed (8) CKD Conclusion/Plan: Stable. Labs were all reviewed today. Her creat remains at 1.4-1.6, after receiving 2 days of IV fluids and being off her Spironolactone and Lasix for several days This was likely from volume depletion caused by the infection. Plan: Will resume her Spironolactone. Will not restart the Lasix, as she is clinically not volume overloaded and we now know her LVEF (see #10) Follow BMP daily (9) Chronic a-fib Conclusion/Plan: HR is controlled Plan: Continue on telemetry We will keep her on her usual heart rate slowing meds and anticoagulants. If debridement is needed, her DOAC will need to be stopped the day before. (10) Hx of heart failure Conclusion/Plan: We had no Echo in this EMR to confirm if she has systolic or diastolic heart failure. 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 An Echo was done 05/20 and that showed preserved LVEF and diastolic fnc could not be assessed in Afib. She does have a dilated RV, consistent with Cor Pulmonale. We stopped the IV fluids that she received for 2 days Beta-manuelito has been resumed, with holding parameters written. Plan: Continue to still hold Lasix Will restart Spironolactone (11) ANNI on CPAP Conclusion/Plan: Plan: Continue her home CPAP device to be used while she is here. 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 This is consistent with Cor Pulmonale. Likely it was caused by her COPD, that is severe enough to need home oxygen 01/11 and by her sleep apnea, needing a CPAP. She does not have any gross edema of her legs yet, even after needing iv fluids, which she got for 2 days Plan: We will resume spironolactone now and Lasix probably the following day. (13) Rhabdomyolysis Conclusion/Plan: Resolved Patient was found on the ground of her home by her caregiver, and it is not known how long she was down on the ground. No CK was done at admission in the ED. A CK was done after admission. Her labs were all reviewed today. Her CK was elevated at 358 and has decreased to normal today at 177. Therefore, she did have mild rhabdo. She received 2 days of IV fluids, stopped 05/20. Plan: Avoid nephrotoxins. - Current Meds Current Meds: Current Medications Generic Name Dose Route Start Last Admin Trade Name Freq PRN Reason Stop Dose Admin Acetaminophen 650 mg 05/19/22 16:29 05/23/22 03:30 Acetaminophen 325 Mg Tablet PO 650 mg Q4HR PRN Administration Pain 1 to 4, or Fever Allopurinol 100 mg 05/21/22 09:00 05/23/22 08:51 Allopurinol 100 Mg Tablet PO 100 mg DAILY KENDALL Administration Apixaban 5 mg 05/19/22 21:00 05/23/22 08:51 Apixaban 5 Mg Tablet PO 5 mg BID KENDALL Administration Aspirin 81 mg 05/20/22 09:00 05/23/22 08:51 Aspirin Ec 81 Mg Tablet PO 81 mg DAILY KENDALL Administration Budesonide 0.5 mg 05/20/22 09:52 05/23/22 08:15 Budesonide 0.5 Mg/2 Ml Neb INH 0.5 mg RTBID KENDALL Administration Famotidine 20 mg 05/20/22 21:00 05/23/22 08:51 Famotidine 20 Mg Tablet PO 20 mg BID KENDALL Administration Cefazolin/Sodium Chloride 2 gm in 50 mls @ 100 mls/hr 05/20/22 12:00 05/23/22 13:03 Ancef 2 Grams/50ml IV Infused Q8H KENDALL Infusion Sodium Chloride 1,000 mls @ 83.333 mls/hr 05/22/22 10:00 05/23/22 10:30 Normal Saline 0.45% IV 83.333 mls/hr .Q12H KENDALL Administration Ipratropium [place] 0.5 mg 05/20/22 11:00 05/23/22 11:46 Ipratropium 0.2 Mg/Ml Neb INH 0.5 mg RTQID KENDALL Administration Ketorolac Tromethamine 30 mg 05/20/22 19:07 05/23/22 03:42 Ketorolac 30 Mg/Ml Vial IVP 05/25/22 19:03 30 mg Q6HR PRN Administration PAIN 5-7 Losartan Potassium 50 mg 05/21/22 09:00 05/23/22 08:51 Losartan 50 Mg Tablet PO 50 mg DAILY KENDALL Administration Metoprolol Succinate 25 mg 05/20/22 09:00 05/23/22 08:52 Metoprolol Succinate 25 Mg Tablet PO 25 mg DAILY KENDALL Administration Multivitamins/Minerals 1 tab 05/21/22 08:00 05/23/22 08:51 Multivitamin W/Minerals Tablet PO 1 tab DAILYWM KENDALL Administration Prednisone 5 mg 05/22/22 08:00 05/23/22 08:52 Prednisone 5 Mg Tablet PO 5 mg DAILYWM KENDALL Administration Saccharomyces Boulardii 250 mg 05/20/22 17:00 05/23/22 08:52 Saccharomyces Boulardii 250 Mg Capsule PO 250 mg BIDWM KENDALL Administration Sodium Chloride 10 ml 05/19/22 16:29 05/20/22 12:34 Sodium Chloride Flush 0.9% 10 Ml Syringe IVP 10 ml PRN PRN Administration NEEDED PER PROVIDER ORDERS Sodium Chloride 10 ml 05/19/22 17:00 05/23/22 08:52 Sodium Chloride Flush 0.9% 10 Ml Syringe IVP Not Given 0100,0900,1700 KENDALL - Lab Result Fish Bone Diagrams: 05/23/22 05:20 05/23/22 05:20 - Additional Planning My Orders: My Active Orders 05/24/22 05:00 BMP - BASIC METABOLIC PANEL [CHEM] DAILYLAB CBC - COMP BLD CT W/AUTO DIFF [HEME] DAILYLAB 05/27/22 09:00 Fluconazole [Diflucan] 150 mg PO Q7D Subjective - Subjective Patient Reports: Other (Seeing faces and clothes and does not understand why the clock works like it does.) Nursing Reports: Other (She did not sleep all night, is napping all day today) Objective Vital Signs: Vital Signs - 24 hr 05/22/22 05/22/22 05/22/22 17:24 20:11 20:30 Temperature 36.7 C Heart Rate 72 Heart Rate [ 70 Brachial] Respiratory 20 16 Rate Blood Pressure 150/86 H [Left Brachial artery] O2 Saturation 92 If not protocol 1 1 1 : Oxygen Flow, liters/minute 05/22/22 05/23/22 05/23/22 23:39 03:53 07:50 Temperature 36.7 C 36.4 C L 36.4 C L Heart Rate Heart Rate [ 70 70 71 Brachial] Respiratory 20 20 18 Rate Blood Pressure 150/88 H 159/90 H 131/75 H [Left Brachial artery] O2 Saturation 93 92 93 If not protocol 1 1 1 : Oxygen Flow, liters/minute 05/23/22 05/23/22 05/23/22 08:17 08:45 08:57 Temperature Heart Rate 89 Heart Rate [ Brachial] Respiratory 20 Rate Blood Pressure [Left Brachial artery] O2 Saturation 87 L 92 If not protocol 2 1 2 : Oxygen Flow, liters/minute 05/23/22 05/23/22 05/23/22 11:30 13:00 15:45 Temperature 36.7 C 36.5 C Heart Rate Heart Rate [ 70 71 Brachial] Respiratory 20 24 Rate Blood Pressure 147/76 H 156/93 H [Left Brachial artery] O2 Saturation 95 94 If not protocol 95 1 1 : Oxygen Flow, liters/minute Oxygen O2 Source Nasal cannula I&O (Last 24 Hrs): Intake and Output Totals x24h 05/21/22 05/22/22 05/23/22 23:59 23:59 23:59 Intake Total 2090 2288.607 1879.718 Output Total 400 300 Balance 1690 6146.927 5570.718 General: Alert, No acute distress HEENT: EOMI, Mucous membr. moist/pink, Other (earing her O2 n.c.) Neck: Supple Neuro: Alert, Disoriented, Other (Poor memory. Non-focal motor) Cardiovascular: No murmurs, Other (distant heart sounds) Respiratory: No respiratory distress (on O2) Abdomen: Soft, No tenderness, Other (obese) Extremities: Other (Trace pretibial edema, R foot bandaged and proximal toes bandaged) - Results Results: Laboratory Results WBC 18.0 x10^3/uL (4.8-10.8) H 05/23/22 05:20 RBC 3.79 10^6/uL (4.20-5.40) L 05/23/22 05:20 Hgb 12.2 g/dL (12.0-16.0) 05/23/22 05:20 Hct 39.3 % (37.0-47.0) 05/23/22 05:20 MCV 103.7 fL (81.0-99.0) H 05/23/22 05:20 MCH 32.2 pg (27.0-31.0) H 05/23/22 05:20 MCHC 31.0 g/dL (32.0-36.0) L 05/23/22 05:20 RDW 13.2 % (12.0-15.0) 05/23/22 05:20 Plt Count 303 10^3/uL (130-450) 05/23/22 05:20 MPV 10.6 fL (7.9-10.8) 05/23/22 05:20 Neut # (Auto) Not Reportable 05/23/22 05:20 Lymph # (Auto) Not Reportable 05/23/22 05:20 [place] # (Auto) Not Reportable 05/23/22 05:20 Eos # (Auto) Not Reportable 05/23/22 05:20 Baso # (Auto) Not Reportable 05/23/22 05:20 Absolute Nucleated RBC Not Reportable 05/23/22 05:20 Total Counted 100 05/23/22 05:20 Band Neuts % (Manual) 8 % (0-10) 05/23/22 05:20 Abnorm Lymph % (Manual) 0 % 05/23/22 05:20 Metamyelocytes % 3 % (-0) H 05/23/22 05:20 Myelocytes % 3 % (-0) H 05/23/22 05:20 Promyelocytes % 1 % (-0) H 05/22/22 05:03 Nucleated RBC % Not Reportable 05/23/22 05:20 Neutrophils # (Manual) 15.5 10^3/uL (1.5-6.6) H 05/23/22 05:20 Lymphocytes # (Manual) 0.9 10^3/uL (1.5-3.5) L 05/23/22 05:20 Monocytes # (Manual) 0.5 10^3/uL (0.0-1.0) 05/23/22 05:20 Eosinophils # (Manual) 0.0 10^3/uL (0-0.7) 05/23/22 05:20 Basophils # (Manual) 0.0 10^3/uL (0-0.1) 05/23/22 05:20 Differential Comment MANUAL DIFFERENTIAL 05/23/22 05:20 Manual Slide Review Indicated 05/19/22 09:26 WBC Morphology NORMAL APPEARANCE (NORMAL) 05/20/22 05:46 Platelet Estimate NORMAL (130-450,000) (NORMAL) 05/23/22 05:20 Platelet Morphology NORMAL APPEARANCE (NORMAL) 05/20/22 05:46 RBC Morph Micro Appear NORMAL APPEARANCE (NORMAL) 05/23/22 05:20 PT 15.1 secs (9.9-12.6) H 05/23/22 05:20 INR 1.4 (0.8-1.2) H 05/23/22 05:20 Sodium 138 mmol/L (135-145) 05/23/22 05:20 Potassium 4.7 mmol/L (3.5-5.0) 05/23/22 05:20 Chloride 104 mmol/L (101-111) 05/23/22 05:20 Carbon Dioxide 24 mmol/L (21-32) 05/23/22 05:20 Anion Gap 10.0 (6-13) 05/23/22 05:20 BUN 47 mg/dL (6-20) H 05/23/22 05:20 Creatinine 1.4 mg/dL (0.4-1.0) H 05/23/22 05:20 Estimated GFR (MDRD) 35 (>89) L 05/23/22 05:20 Glucose 87 mg/dL (70-100) 05/23/22 05:20 Estimat Average Glucose 131 mg/dL (70-100) H 05/21/22 04:26 Hemoglobin A1c % 6.2 % (4.27-6.07) H 05/21/22 04:26 Lactic Acid 2.1 mmol/L (0.5-2.2) 05/19/22 12:58 Uric Acid 6.7 mg/dL (2.6-7.2) 05/21/22 04:26 Calcium 10.8 mg/dL (8.5-10.3) H 05/23/22 05:20 Magnesium 2.3 mg/dL (1.7-2.8) 05/20/22 05:46 Total Bilirubin 0.8 mg/dL (0.2-1.0) 05/19/22 09:26 AST 25 IU/L (10-42) 05/19/22 09:26 ALT 21 IU/L (10-60) 05/19/22 09:26 Alkaline Phosphatase 69 IU/L (42-121) 05/19/22 09:26 Total Creatine Kinase 177 IU/L (22-269) 05/21/22 04:26 Total Protein 6.9 g/dL (6.7-8.2) 05/19/22 09:26 Albumin 3.2 g/dL (3.2-5.5) 05/19/22 09:26 Globulin 3.7 g/dL (2.1-4.2) 05/19/22 09:26 Albumin/Globulin Ratio 0.9 (1.0-2.2) L 05/19/22 09:26 Lipase 39 U/L (22-51) 05/19/22 09:26 Vitamin B12 756 pg/mL (180-914) 05/20/22 05:46 Folate 13.80 ng/mL (5.90 - >24.8) 05/20/22 05:46 Urine Color DARK YELLOW 05/19/22 12:34 Urine Clarity CLEAR (CLEAR) 05/19/22 12:34 Urine pH 5.5 PH (5.0-7.5) 05/19/22 12:34 Ur Specific [place] >=1.030 (1.002-1.030) H 05/19/22 12:34 Urine Protein TRACE mg/dL (NEGATIVE) 05/19/22 12:34 Urine Glucose (UA) NEGATIVE mg/dL (NEGATIVE) 05/19/22 12:34 Urine Ketones NEGATIVE mg/dL (NEGATIVE) 05/19/22 12:34 Urine Occult Blood NEGATIVE (NEGATIVE) 05/19/22 12:34 Urine Nitrite NEGATIVE (NEGATIVE) 05/19/22 12:34 Urine Bilirubin NEGATIVE (NEGATIVE) 05/19/22 12:34 Urine Urobilinogen 0.2 (NORMAL) E.U./dL (NORMAL) 05/19/22 12:34 Ur Leukocyte Esterase NEGATIVE (NEGATIVE) 05/19/22 12:34 Ur Microscopic Review NOT INDICATED 05/19/22 12:34 Urine Culture Comments NOT INDICATED 05/19/22 12:34 SARS-CoV-2 (PCR) NOT DETECTED 05/19/22 13:53
[2022-05-24] MEDS: SODIUM CHLORIDE FLUSH 0.9% 10 ML SYRINGE IVP SCH ×3 (04:28→20:20)
[2022-05-24] MEDS: CEFAZOLIN 2G/50ML 0.9% NS 2 GM/50 ML BAG IV SCH ×3 (04:34→20:19)
[2022-05-24 05:34] LABS: BASOPHILS % (AUTO) 0.5 %; EOSINOPHILS % (AUTO) 0.6 %; HCT - HEMATOCRIT 39.3 % (37.0-47.0); HGB - HEMOGLOBIN 12.1 g/dL (12.0-16.0); MEAN CORPUSCULAR HEMOGLOBIN 30.9 pg (27.0-31.0); MEAN CORPUSCULAR HGB CONC 30.8 g/dL (32.0-36.0); MEAN CORPUSCULAR VOLUME 100.3 fL (81.0-99.0); MEAN PLATELET VOLUME 10.2 fL (7.9-10.8); MONOCYTES % (AUTO) 4.5 %; NEUTROPHILS % (AUTO) 82.5 %; PLT - PLATELET COUNT 326 10^3/uL (130-450); RED BLOOD COUNT 3.92 10^6/uL (4.20-5.40); RED CELL DISTRIBUTION WIDTH 13.2 % (12.0-15.0); WHITE BLOOD COUNT 18.8 x10^3/uL (4.8-10.8)
[2022-05-24 05:40] LABS: ABNORMAL LYMPHS % (MANUAL) 0 %
[2022-05-24 05:44] LABS: CALCIUM 10.1 mg/dL (8.5-10.3); CREATININE 1.5 mg/dL (0.4-1.0); POTASSIUM 4.8 mmol/L (3.5-5.0)
[2022-05-24 05:58] LABS: BAND NEUTROPHILS % (MANUAL) 2 %; DIFFERENTIAL COMMENT MANUAL DIFFERENTIAL; LYMPHOCYTES # (MANUAL) 1.1 10^3/uL (1.5-3.5); LYMPHOCYTES % (MANUAL) 6 %; MONOCYTES # (MANUAL) 0.8 10^3/uL (0.0-1.0); MYELOCYTES % (MANUAL) 2 %; NEUTROPHILS # (MANUAL) 16.5 10^3/uL (1.5-6.6); PLATELET ESTIMATE, MANUAL NORMAL (130-450,000) (NORMAL); PLATELET MORPHOLOGY NORMAL APPEARANCE (NORMAL); RBC MORPHOLOGY (MULTIPLE) NORMAL APPEARANCE (NORMAL); WBC MORPHOLOGY (MULTIPLE) NORMAL APPEARANCE (NORMAL)
[2022-05-24] MEDS: BUDESONIDE 0.5 MG/2 ML NEB INH SCH ×2 (07:46→22:50)
[2022-05-24] MEDS: IPRATROPIUM 0.2 MG/ML NEB INH SCH ×4 (07:46→22:51)
[2022-05-24] MEDS: FAMOTIDINE 20 MG TABLET PO SCH ×2 (09:16→20:19)
[2022-05-24] MEDS: predniSONE 5 MG TABLET PO SCH (09:16)
[2022-05-24] MEDS: APIXABAN 5 MG TABLET PO SCH ×2 (09:16→20:19)
[2022-05-24] MEDS: LOSARTAN 50 MG TABLET PO SCH (09:16)
[2022-05-24] MEDS: METOPROLOL SUCCINATE 25 MG TABLET PO SCH (09:16)
[2022-05-24] MEDS: allopurinoL 100 MG TABLET PO SCH (09:16)
[2022-05-24] MEDS: MULTIVITAMIN W/MINERALS TABLET PO SCH (09:16)
[2022-05-24] MEDS: SODIUM CHLORIDE 0.45% 1,000 ML IV SCH (09:17)
[2022-05-24] MEDS: SACCHAROMYCES BOULARDII 250 MG CAPSULE PO SCH ×2 (09:17→17:04)
[2022-05-24] MEDS: ASPIRIN EC 81 MG TABLET PO SCH (09:17)
--- NOTE | 2022-05-24 11:35 | XRAY Report ---
PROCEDURE: Chest 1 View X-Ray INDICATIONS: Tachypnea, Hx COPD TECHNIQUE: One view of the chest was acquired. COMPARISON: 05/19/2022. FINDINGS: Surgical changes and devices: Left chest wall pacer lead is in the region of right ventricle. Lungs and pleura: There is pulmonary vascular congestion. No definite focal infiltrate. Small right pleural effusion is seen. Mild pulmonary edema is noted. No gross pneumothorax. No definite focal inf iltrate. Mediastinum: Mediastinal contours appear normal. Heart size is enlarged. Bones and chest wall: No suspicious bony lesions. Overlying soft tissues appear unremarkable. IMPRESSION: Finding is suggestive of CHF. No definite focal infiltrate. No pneumothorax. Reviewed by: Emre Patel MD on 05/24/2022 11:34 AM PST Approved by: Emre Patel MD on 05/24/2022 11:34 AM PST Station ID: [id number]
[2022-05-24] MEDS ORDERED: FUROSEMIDE 40 MG/4 ML VIAL IVP STA (11:36)
[2022-05-24] MEDS: SPIRONOLACTONE 25 MG TABLET PO SCH (11:57)
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
[2022-05-24 13:08] LABS: ABG HCO3 23.4 mmol/L (22.0-26.0); ABG PCO2 41 mmHg (34-45); ABG PH 7.37 (7.35-7.45)
[2022-05-24 13:09] LABS: ABG BASE EXCESS -1.7 mmol/L (-2.0-3.0); ABG TCO2 24.7 MMOL/L (21.0-29.0); ALLEN TEST POSITIVE
[2022-05-24 13:12] LABS: ABG OXYGEN SATURATION 87 % (94-98); ABG PO2 51 mmHg (80-100)
--- NOTE | 2022-05-24 14:04 | WOUND CARE CONSULTATION ---
Referring Provider Name of Referring Provider:: Elizabeth Grey MD Consult Date: 05/24/22 Chief Complaint - Chief Complaint Chief Complaint: Right great toe wound, draining History of Present Illness - History Obtained From Records Reviewed: Yes History obtained from: Patient/Hospitalist Exam Limitations: Patient unable to recall history of wounding - History of Present Illness HPI: 87-year-old female who was admitted to the hospital on 05/19/22 with right foot pain, cellulitis, and confusion, presents [facility] today at the request of Dr. Grey due to increased drainage from wound to right foot wound. Prior to current hospitalization, patient had [facility] health nurses doing dressing changes. She had developed a gout flare approximately 2 weeks ago resulting in an open wound. Due to worsening symptoms, she was seen at the walk in clinic, wound was cultured, and patient was started on cephalexin. She completed 4 days of oral antibiotics with no improvement. Since being hospitalized, she has been on IV antibiotics; currently on Ancef q 8 hours based on wound culture and sensitivities. 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 She was consulted by Dr. Hough on 05/21/21. At that time, he indicated that no surgical intervention was needed. Patient is to follow up with Dr. Hough at the orthopedic clinic for exam and x-ray. She has a history of COPD, arthritis, intermediate prednisone use, breast cancer, atrial fibrillation, and gout treated with allopurinol. She reports that her right foot has become so painful that she is unable to ambulate at this time. History - Past Medical History Cardiovascular: reports: Congestive heart failure, Hypertension, Coronary artery disease, [place], Atrial fibrillation Respiratory: reports: COPD, Shortness of breath, Sleep apnea, CPAP use Neuro: reports: Headaches, Peripheral neuropathy, Other Endocrine/Autoimmune: reports: Other (She is on Prednisone for her arthritis, therefore is immunocompromised.) GI: reports: None VOICE INSTRUCTOR: reports: Breast cancer : reports: Incontinence, Renal insuffiency HEENT: reports: Chronic vision loss, Macular degeneration, Other Psych: reports: None Musculoskeletal: reports: Osteoarthritis, Gout, Chronic back pain Derm: reports: Other MRSA Hx?: No Other Past Medical History: 2L NC - Past Surgical History Ortho: reports: Knee replacement /VOICE INSTRUCTOR: reports: Other Cardiovascular: reports: Coronary stent, Pacemaker, Other - Family & Social History Family History: Mother: , CVA/TIA (age 74), Hypertension, Father: , Cancer (colon at 88), Sister: Alive and Well, , Alzheimer's Disease Family History Comment/Other: Unknown, she cannot remember Living arrangement: At home Living Situation: Alone (HAs carfegivers) Social History Notes: No alcohol intake. She only smoked from age [age]. 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 She lives alone. She no longer drives a car. She claims that 2 children are close and come to assist her with laundry and cleaning and making meals. - Substance History Use: Uses substance without health or social issues: NONE - POLST Patient has POLST: Yes Objective General: Cooperative, No acute distress, Other (Difficulty recalling history of wounds.) - Wound Assessment Wound #1 Right 1st metatarsal head The wound is full thickness over the medial aspect of the 1st metatarsal head. The wound bed is 100% thick slough. Wound edges are attached, no undermining or tunneling. There is reported heavy drainage. Periwound is erythematous with dry peeling skin. No odor. Currently on IV antibiotics. Wound #2 right elbow Measuring 2.2 x 1.5 x 0.1 ISTAP type 1 skin tear. Skin repositioned to completely cover wound bed. No jose eduardo inage. No s/s infection. Wound #3 right lower leg Measuring 2.0 x 1.0 x 0.1 ISTAP type 2 skin tear. Partial flap loss that does not completely cover wound bed. No drainage. No s/s infection. Ecchymosis to bilateral upper extremities likely due to intermediate prednisone use and xerelto. Procedure - Procedure Note Wound Debridement: Wound #1 Right 1st metatarsal head (medial): Pre: 0.9 x 1.5 x +0.1 Post: 1.0 x 1.7 x 0.1 Total area debrided: 1.7 sq cm After informed consent, the wound and periwound were cleansed, then 5% topical lidocaine was applied for local anesthesia. Using a #15 blade, the wound was sharply debrided of non-viable and subcutaneous tissue down to viable bleeding subcutaneous tissue. Skin edges were freshened in a similar fashion. Hemostasis was achieved with pressure and time. A new dressing consisting of Ag calcium alginate with antimicrobial properties was applied. Patient tolerated the pr ocedure well without apparent complications. Appropriate follow up instructions were given. Conclusion and Plan - Problem List (1) Open wound of right foot Qualifiers: Encounter type: initial encounter Qualified Code(s): S91.301A - Unspecified open wound, right foot, initial encounter Assessment/Plan: Located on the first metatarsal head, medial aspect due to tophaceous gout. On allopurinol and IV antibiotics. Plan of care: Wound hygiene with sharp debridement and antimicrobial solution. Dressing with calcium alginate with Ag, optilock super absorbent pad, roll gauze and tape. A tubigrip size D was applied to right lower leg. Dressing should stay in place for several days. If dressing becomes soiled, nursing should wash wound with gentle cleanser and apply a hydrofiber dressing to wound bed followed by plain foam, secured with roll gauze and tape. RTC in one week if still hospitalized. Otherwise, I am happy to send wound care orders to [facility] upon discharge. Patient to follow up with Dr. Hough as indicated. (2) Tophaceous gout Assessment/Plan: Follow up with Dr. Hough for reevaluation and x-ray. Continue current gout treatment and wound care as above. (3) ISTAP type 1 skin tear of right elbow Assessment/Plan: Wound hygiene with antimicrobial solution. Dressing with Ag mesh followed by a plain foam border dressing. Dressing should stay dry and intact for up to one week. If dressing needs to be changed, nursing staff may apply xeroform under a plain foam border dressing. RTC in one week is she is still hospitalized. (4) ISTAP type 2 skin tear of right lower extremity Assessment/Plan: Wound hygiene with antimicrobial solution. Dressing with Ag mesh followed by a plain foam border dressing. Dressing should stay dry and intact for up to one week. If dressing needs to be changed, nursing staff may apply xeroform under a plain foam border dressing. - Results Lab Results: Laboratory Results Sodium 135 mmol/L (135-145) 05/24/22 05:28 Potassium 4.8 mmol/L (3.5-5.0) 05/24/22 05:28 Chloride 104 mmol/L (101-111) 05/24/22 05:28 Carbon Dioxide 22 mmol/L (21-32) 05/24/22 05:28 Anion Gap 9.0 (6-13) 05/24/22 05:28 BUN 46 mg/dL (6-20) H 05/24/22 05:28 Creatinine 1.5 mg/dL (0.4-1.0) H 05/24/22 05:28 Glucose 99 mg/dL (70-100) 05/24/22 05:28 Hemoglobin A1c % 6.2 % (4.27-6.07) H 05/21/22 04:26 Calcium 10.1 mg/dL (8.5-10.3) 05/24/22 05:28 Total Bilirubin 0.8 mg/dL (0.2-1.0) 05/19/22 09:26 AST 25 IU/L (10-42) 05/19/22 09:26 ALT 21 IU/L (10-60) 05/19/22 09:26 Alkaline Phosphatase 69 IU/L (42-121) 05/19/22 09:26 Total Protein 6.9 g/dL (6.7-8.2) 05/19/22 09:26 Albumin 3.2 g/dL (3.2-5.5) 05/19/22 09:26 Globulin 3.7 g/dL (2.1-4.2) 05/19/22 09:26 Albumin/Globulin Ratio 0.9 (1.0-2.2) L 05/19/22 09:26 05/19/22 12:58 Blood - Right Hand Blood Culture - Final NO GROWTH AFTER 5 DAYS 05/19/22 12:58 Blood - Right Arm Blood Culture - Final NO GROWTH AFTER 5 DAYS - Home Meds/Allergies Allergies alprazolam [From Xanax] Allergy (Verified 11/19/21 11:37) Unknown azithromycin [From Zithromax] Allergy (Verified 11/19/21 11:37) Unknown warfarin Allergy (Verified 11/19/21 11:37) Rash Home Medications traMADol [Ultram] 50 - 100 mg PO Q4-6H PRN 05/19/22 [History Confirmed 05/20/22] Fluconazole [Diflucan] 1 tablet PO Q7D 05/20/22 [History Confirmed 05/20/22] Losartan Potassium [Cozaar] 100 mg PO DAILY 05/20/22 [History Confirmed 05/20/22] allopurinoL [Zyloprim] 100 mg PO DAILY 05/20/22 [History Confirmed 05/20/22] cephALEXin [Keflex] 500 mg PO TID 05/20/22 [History Confirmed 05/20/22] predniSONE [Deltasone] 10 mg PO DAILY 05/20/22 [History Confirmed 05/20/22] - Plan Condition/Complexity: Stable Plan Discussed with: Patient
--- NOTE | 2022-05-24 16:06 | PROVIDER PROGRESS NOTE ---
Assessment/Plan - Problem List (1) Cellulitis of right foot Assessment/Plan: Patient was admitted due to a worsening infection and worsened confusion, despite being on cephalexin for 4 days. 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 She was started on empiric IV antibiotics Vanco and Ceftriaxone. All labs were reviewed. Her WBC went up from 18>> 19>> 26 then improved to 21>> 18>> 18 again today. The wound culture is growing MSStaph aureus We changed her antibx to Ancef 2 g IV q8h on 05/20, based on the Staph aureus wound cx sensitivities. All blood cultures are neg to date Plan: Continue non-narcotic pain medications as needed Continue OOB to chair with legs elevated when she is OOB Start more PT and OT therapy when less tired and less confused. Await findings and recommendations from [facility], appointment is at 1400 today (2) Confusion Worsened. By report from Shamika Rucker NP, she was more confused than her typical confusion, at presentation. We stopped the oxycodone 10 mg dose that she got 05/20 which made her sleepy and confused upon awakening. Then she got better the morning of 05/21. Since 05/21 afternoon, she has worsened. On 05/21, she could not remember what the Orthopedist told her. On 05/22, she could not remember that I had spoken to her already, and was very focused on the wall clock. She is hallu cinating ("seeing faces that she does not like" and seeing "parts of clothes"). She is tangential and goes off topic ("it is 10 to 2 but it shouldn't be, because it takes 48 hours to get thru 2 days"). She says she cannot remember all the details being told to her. She sleeps during the day and is awake most of the night, for the past 3 nights, per RN. When asked a question, she stares at you for 5-7 sec, then answers. Speech is normal. She is oriented x3. We got a repeat head CT yesteray 05/23 to R/O stroke, since she had a head CT to compare to from admission, and cannot get MRI due to having a pacemaker. That repeat head CT showed no bleed or stroke We have stopped all narcotics that can sedate her and confuse her. Today an ABG was done and it did not show CO2 retention, and a normal pH. Possibly she has hospital psychosis. Alternatively, the current infection is still causing this confusion. Plan: Continue Ketolorac prn, give this with food or milk and Pepcid po BID started, since she is also on DOAC and baby aspirin daily. Continue with her suppl O2, and I have ordered max saturation to be 93%, so as not to get CO2 retention if her FIO2 is turned up. Continue her home CPAP while sleeping, while she is here. I have asked for an official consult from Shamika Rucker NP who knows her. I updated the daughter at bedside today. (3) MSSA infection Staph aureus is growing in the wound cx. It is pansensitive. Plan: As in #1 (4) Tophaceous gout Conclusion/Plan: A tophus opened and this is the source of the cellulitis infection. She said she is not on allopurinol, but her med list indicates she is on allopurinol. She had CT w/ contrast imaging done and it was read as cellulitis, osteomyelitis and septic arthritis, and also the 2nd toe has a fracture. We resumed her home dose of allopurinol A consult was done by Orthopedist Dr Hough. He thinks the fracture and the bone changes that were read as osteo are more likley from gouty destruction. He recommended to treat the cellulitis and the gout and that she will likely not need debridement or surgery. She will need an Ortho F/U after discharge however. Plan: Continue to give pain meds as needed, oxycodone made her too sleepy, I ordered Toradol. Cont back on her usual Prednisone Target uric level is 4 or under to promote healing, as per Wound doctor, so will increase the allopurinol dose. Continue PT and OT to prevent deconditioning. But this lady was already minimally active at home, did no laundry or cooking or driving anymore. She mostly sat in her house, reported to me by Shamika Rucker NP Await findings and recommendations from [facility], appointment is at 1400 today (5) COPD (chronic obstructive pulmonary disease) Conclusion/Plan: Clinically, she does not appear to have a COPD exacerbation currently. She is on Home O2 but her home settings are not known. Plan: We will continue with her supplemental oxygen, keeping saturations 90 to 93% Continue with her usual COPD meds as well (6) Fall at home Conclusion/Plan: Palliative Care provider Shamika Rucker NP came to see her at admission and provided me with details about her past history yesterday. Patient has had multiple falls at home. Patient mostly sits in her chair at home and furniture surfs when walking. She is getting forgetful, and that definitely was worsened by the infection. Her orthostatic vital sign checks were normal Plan: Continue on telemetry to watch for arrhythmias Continue her usual cardiac meds with holding parameters for low BP. PT and OT to continue (however she has been uninterested with participating thus far, possibly from over-sedation and confusion) (7) L hip pain Conclusion/Plan: Improved with pain meds This was noticed by the overnight RN when they had to reposition her in her bed starting the first night here. The patient also told Shamika Rucker that she had pain in L hip. Plain films of the left hip and pelvis were done after admission and showed no fracture, just arthritic changes. I informed the patient Plan: Give pain meds as needed (8) CKD Conclusion/Plan: Stable. Labs were all reviewed today. Her creat remains at 1.4-1.6, after receiving 2 days of IV fluids and being off her Spironolactone and Lasix for several days Plan: Will resume her Spironolactone. Will also restart the Lasix Follow BMP daily (9) Chronic a-fib Conclusion/Plan: HR is controlled Plan: Continue on telemetry We will keep her on her usual heart rate slowing meds and anticoagulants. If extensive foot surgery is needed, her DOAC will need to be stopped the day before. (10) Hx of heart failure Conclusion/Plan: We had no Echo in this EMR to confirm if she has systolic or diastolic heart failure. 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 An Echo was done 05/20 and that showed preserved LVEF and diastolic fnc could not be assessed in Afib. She does have a dilated RV, consistent with Cor Pulmonale. We stopped the IV fluids that she received for 2 days Beta-manuelito has been resumed, with holding parameters written. Plan: Cont B-manuelito Will restart Spironolactone and Lasix (11) ANNI on CPAP Conclusion/Plan: Plan: Continue her home CPAP device to be used while she is here. 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 This is consistent with Cor Pulmonale. Likely it was caused by her COPD, that is severe enough to need home oxygen 24/7 and by her sleep apnea, needing a CPAP. Plan: Will restart Spironolactone and Lasix (13) Rhabdomyolysis Conclusion/Plan: Resolved Patient was found on the ground of her home by her caregiver, and it is not known how long she was down on the ground. No CK was done at admission in the ED. A CK was done after admission. Her labs were all reviewed today. Her CK was elevated at 358 and has decreased to normal today at 177. Therefore, she did have mild rhabdo. She received 2 days of IV fluids, stopped 05/20. Plan: Avoid nephrotoxins. - Current Meds Current Meds: Current Medications Generic Name Dose Route Start Last Admin Trade Name Freq PRN Reason Stop Dose Admin Acetaminophen 650 mg 05/19/22 16:29 05/23/22 17:01 Acetaminophen 325 Mg Tablet PO 650 mg Q4HR PRN Administration Pain 1 to 4, or Fever Allopurinol 100 mg 05/21/22 09:00 05/24/22 09:16 Allopurinol 100 Mg Tablet PO 100 mg DAILY KENDALL Administration Apixaban 5 mg 05/19/22 21:00 05/24/22 09:16 Apixaban 5 Mg Tablet PO 5 mg BID KENDALL Administration Aspirin 81 mg 05/20/22 09:00 05/24/22 09:17 Aspirin Ec 81 Mg Tablet PO 81 mg DAILY KENDALL Administration Budesonide 0.5 mg 05/20/22 09:52 05/24/22 07:46 Budesonide 0.5 Mg/2 Ml Neb INH 0.5 mg RTBID KENDALL Administration Famotidine 20 mg 05/20/22 21:00 05/24/22 09:16 Famotidine 20 Mg Tablet PO 20 mg BID KENDALL Administration Cefazolin/Sodium Chloride 2 gm in 50 mls @ 100 mls/hr 05/20/22 12:00 05/24/22 15:07 Ancef 2 Grams/50ml IV Infused Q8H KENDALL Infusion Ipratropium [place] 0.5 mg 05/20/22 11:00 05/24/22 15:16 Ipratropium 0.2 Mg/Ml Neb INH 0.5 mg RTQID KENDALL Administration Ketorolac Tromethamine 30 mg 05/20/22 19:07 05/23/22 03:42 Ketorolac 30 Mg/Ml Vial IVP 05/25/22 19:03 30 mg Q6HR PRN Administration PAIN 5-7 Losartan Potassium 50 mg 05/21/22 09:00 05/24/22 09:16 Losartan 50 Mg Tablet PO 50 mg DAILY KENDALL Administration Metoprolol Succinate 25 mg 05/20/22 09:00 05/24/22 09:16 Metoprolol Succinate 25 Mg Tablet PO 25 mg DAILY KENDALL Administration Multivitamins/Minerals 1 tab 05/21/22 08:00 05/24/22 09:16 Multivitamin W/Minerals Tablet PO 1 tab DAILYWM KENDALL Administration Prednisone 5 mg 05/22/22 08:00 05/24/22 09:16 Prednisone 5 Mg Tablet PO 5 mg DAILYWM KENDALL Administration Saccharomyces Boulardii 250 mg 05/20/22 17:00 05/24/22 09:17 Saccharomyces Boulardii 250 Mg Capsule PO 250 mg BIDWM KENDALL Administration Sodium Chloride 10 ml 05/19/22 16:29 05/20/22 12:34 Sodium Chloride Flush 0.9% 10 Ml Syringe IVP 10 ml PRN PRN Administration NEEDED PER PROVIDER ORDERS Sodium Chloride 10 ml 05/19/22 17:00 05/24/22 09:17 Sodium Chloride Flush 0.9% 10 Ml Syringe IVP 10 ml 0100,0900,1700 KENDALL Administration Spironolactone 25 mg 05/24/22 12:00 05/24/22 11:57 Spironolactone 25 Mg Tablet PO 25 mg DAILY KENDALL Administration - Lab Result Fish Bone Diagrams: 05/24/22 05:28 05/24/22 05:28 - Additional Planning My Orders: My Active Orders 05/24/22 Palliative Care Consult [CONS] Routine 05/24/22 11:03 Vital Signs- Do Not Awaken For [RC] HS 05/24/22 12:00 Spironolactone [Aldactone] 25 mg PO DAILY 05/24/22 12:19 RT - Obtain Arterial Specimen [RC] .ONCE 05/25/22 05:00 BMP - BASIC METABOLIC PANEL [CHEM] DAILYLAB CBC - COMP BLD CT W/AUTO DIFF [HEME] DAILYLAB 05/25/22 09:00 Furosemide [Lasix] 40 mg PO DAILY 05/26/22 05:00 BMP - BASIC METABOLIC PANEL [CHEM] DAILYLAB CBC - COMP BLD CT W/AUTO DIFF [HEME] DAILYLAB 05/27/22 05:00 BMP - BASIC METABOLIC PANEL [CHEM] DAILYLAB CBC - COMP BLD CT W/AUTO DIFF [HEME] DAILYLAB 05/27/22 09:00 Fluconazole [Diflucan] 150 mg PO Q7D 05/28/22 05:00 BMP - BASIC METABOLIC PANEL [CHEM] DAILYLAB CBC - COMP BLD CT W/AUTO DIFF [HEME] DAILYLAB Subjective - Subjective Patient Reports: Other (Admits that she is still confused, still gets hallucinations of faces and clothing. She is slightly more short of breath today) Objective Vital Signs: Vital Signs - 24 hr 05/23/22 05/23/22 05/23/22 19:15 20:34 23:54 Temperature 36.4 C L 36.6 C Heart Rate 70 Heart Rate [ 70 70 Brachial] Respiratory 28 H 24 24 Rate Blood Pressure 154/88 H 129/75 [Left Brachial artery] O2 Saturation 91 L 89 L If not protocol 1 1 1 : Oxygen Flow, liters/minute 05/24/22 05/24/22 05/24/22 05:31 07:28 07:50 Temperature 36.2 C L 36.4 C L Heart Rate 69 Heart Rate [ 70 70 Brachial] Respiratory 30 H 26 H 19 Rate Blood Pressure 152/80 H 153/73 H [Left Brachial artery] O2 Saturation 94 90 L If not protocol 1 1 2 : Oxygen Flow, liters/minute 05/24/22 05/24/22 05/24/22 11:03 11:25 15:19 Temperature 36.6 C Heart Rate 70 70 Heart Rate [ 70 Brachial] Respiratory 20 24 17 Rate Blood Pressure 151/86 H [Left Brachial artery] O2 Saturation 89 L If not protocol 2 1 2 : Oxygen Flow, liters/minute Oxygen O2 Source Nasal cannula I&O (Last 24 Hrs): Intake and Output Totals x24h 05/22/22 05/23/22 05/24/22 23:59 23:59 23:59 Intake Total 2288.607 3607.770 2455.552 Output Total 300 275 350 Balance 1917.289 1156.770 2105.552 General: Alert, Oriented x3 HEENT: Mucous membr. moist/pink, Other (Cushingoid) Neck: Supple Neuro: Alert, Non Focal, Other (Confused and poor memory) Cardiovascular: No murmurs Respiratory: Other (Respiratory rate increased today, lung mesa have diminished breath sounds but no wheezes or rales) Abdomen: Soft, Other (Obese) Extremities: Other (Trace ankle edema bilaterally, right foot is bandaged and toes bandaged) - Results Results: Laboratory Results WBC 18.8 x10^3/uL (4.8-10.8) H 05/24/22 05:28 RBC 3.92 10^6/uL (4.20-5.40) L 05/24/22 05:28 Hgb 12.1 g/dL (12.0-16.0) 05/24/22 05:28 Hct 39.3 % (37.0-47.0) 05/24/22 05:28 MCV 100.3 fL (81.0-99.0) H 05/24/22 05:28 MCH 30.9 pg (27.0-31.0) 05/24/22 05:28 MCHC 30.8 g/dL (32.0-36.0) L 05/24/22 05:28 RDW 13.2 % (12.0-15.0) 05/24/22 05:28 Plt Count 326 10^3/uL (130-450) 05/24/22 05:28 MPV 10.2 fL (7.9-10.8) 05/24/22 05:28 Neut # (Auto) Not Reportable 05/24/22 05:28 Lymph # (Auto) Not Reportable 05/24/22 05:28 Butts # (Auto) Not Reportable 05/24/22 05:28 Eos # (Auto) Not Reportable 05/24/22 05:28 Baso # (Auto) Not Reportable 05/24/22 05:28 Absolute Nucleated RBC Not Reportable 05/24/22 05:28 Total Counted 100 05/24/22 05:28 Band Neuts % (Manual) 2 % (0-10) 05/24/22 05:28 Abnorm Lymph % (Manual) 0 % 05/24/22 05:28 Metamyelocytes % 3 % (-0) H 05/23/22 05:20 Myelocytes % 2 % (-0) H 05/24/22 05:28 Promyelocytes % 1 % (-0) H 05/22/22 05:03 Nucleated RBC % Not Reportable 05/24/22 05:28 Neutrophils # (Manual) 16.5 10^3/uL (1.5-6.6) H 05/24/22 05:28 Lymphocytes # (Manual) 1.1 10^3/uL (1.5-3.5) L 05/24/22 05:28 Monocytes # (Manual) 0.8 10^3/uL (0.0-1.0) 05/24/22 05:28 Eosinophils # (Manual) 0.0 10^3/uL (0-0.7) 05/24/22 05:28 Basophils # (Manual) 0.0 10^3/uL (0-0.1) 05/24/22 05:28 Differential Comment MANUAL DIFFERENTIAL 05/24/22 05:28 Manual Slide Review Indicated 05/19/22 09:26 WBC Morphology NORMAL APPEARANCE (NORMAL) 05/24/22 05:28 Platelet Estimate NORMAL (130-450,000) (NORMAL) 05/24/22 05:28 Platelet Morphology NORMAL APPEARANCE (NORMAL) 05/24/22 05:28 RBC Morph Micro Appear NORMAL APPEARANCE (NORMAL) 05/24/22 05:28 PT 15.1 secs (9.9-12.6) H 05/23/22 05:20 INR 1.4 (0.8-1.2) H 05/23/22 05:20 Bld Gas Analysis Time 1305 05/24/22 12:50 Sample Site LEFT BRACHIAL 05/24/22 12:50 ABG pH 7.37 (7.35-7.45) 05/24/22 12:50 ABG pCO2 41 mmHg (34-45) 05/24/22 12:50 ABG pO2 51 mmHg (80-100) L* 05/24/22 12:50 ABG HCO3 23.4 mmol/L (22.0-26.0) 05/24/22 12:50 ABG Total CO2 24.7 MMOL/L (21.0-29.0) 05/24/22 12:50 ABG O2 Saturation 87 % (94-98) L* 05/24/22 12:50 ABG Base Excess -1.7 mmol/L (-2.0-3.0) 05/24/22 12:50 Gavin Test POSITIVE 05/24/22 12:50 O2 Delivery Device NASAL CANNULA 05/24/22 12:50 O2 Liters/Min 1.00 LPM 05/24/22 12:50 Sodium 135 mmol/L (135-145) 05/24/22 05:28 Potassium 4.8 mmol/L (3.5-5.0) 05/24/22 05:28 Chloride 104 mmol/L (101-111) 05/24/22 05:28 Carbon Dioxide 22 mmol/L (21-32) 05/24/22 05:28 Anion Gap 9.0 (6-13) 05/24/22 05:28 BUN 46 mg/dL (6-20) H 05/24/22 05:28 Creatinine 1.5 mg/dL (0.4-1.0) H 05/24/22 05:28 Estimated GFR (MDRD) 33 (>89) L 05/24/22 05:28 Glucose 99 mg/dL (70-100) 05/24/22 05:28 Estimat Average Glucose 131 mg/dL (70-100) H 05/21/22 04:26 Hemoglobin A1c % 6.2 % (4.27-6.07) H 05/21/22 04:26 Lactic Acid 2.1 mmol/L (0.5-2.2) 05/19/22 12:58 Uric Acid 6.7 mg/dL (2.6-7.2) 05/21/22 04:26 Calcium 10.1 mg/dL (8.5-10.3) 05/24/22 05:28 Magnesium 2.3 mg/dL (1.7-2.8) 05/20/22 05:46 Total Bilirubin 0.8 mg/dL (0.2-1.0) 05/19/22 09:26 AST 25 IU/L (10-42) 05/19/22 09:26 ALT 21 IU/L (10-60) 05/19/22 09:26 Alkaline Phosphatase 69 IU/L (42-121) 05/19/22 09:26 Total Creatine Kinase 177 IU/L (22-269) 05/21/22 04:26 Total Protein 6.9 g/dL (6.7-8.2) 05/19/22 09:26 Albumin 3.2 g/dL (3.2-5.5) 05/19/22 09:26 Globulin 3.7 g/dL (2.1-4.2) 05/19/22 09:26 Albumin/Globulin Ratio 0.9 (1.0-2.2) L 05/19/22 09:26 Lipase 39 U/L (22-51) 05/19/22 09:26 Vitamin B12 756 pg/mL (180-914) 05/20/22 05:46 Folate 13.80 ng/mL (5.90 - >24.8) 05/20/22 05:46 Urine Color DARK YELLOW 05/19/22 12:34 Urine Clarity CLEAR (CLEAR) 05/19/22 12:34 Urine pH 5.5 PH (5.0-7.5) 05/19/22 12:34 Ur Specific Hana >=1.030 (1.002-1.030) H 05/19/22 12:34 Urine Protein TRACE mg/dL (NEGATIVE) 05/19/22 12:34 Urine Glucose (UA) NEGATIVE mg/dL (NEGATIVE) 05/19/22 12:34 Urine Ketones NEGATIVE mg/dL (NEGATIVE) 05/19/22 12:34 Urine Occult Blood NEGATIVE (NEGATIVE) 05/19/22 12:34 Urine Nitrite NEGATIVE (NEGATIVE) 05/19/22 12:34 Urine Bilirubin NEGATIVE (NEGATIVE) 05/19/22 12:34 Urine Urobilinogen 0.2 (NORMAL) E.U./dL (NORMAL) 05/19/22 12:34 Ur Leukocyte Esterase NEGATIVE (NEGATIVE) 05/19/22 12:34 Ur Microscopic Review NOT INDICATED 05/19/22 12:34 Urine Culture Comments NOT INDICATED 05/19/22 12:34 SARS-CoV-2 (PCR) NOT DETECTED 05/19/22 13:53
[2022-05-25] MEDS: SODIUM CHLORIDE FLUSH 0.9% 10 ML SYRINGE IVP SCH ×3 (03:36→20:24)
[2022-05-25] MEDS: CEFAZOLIN 2G/50ML 0.9% NS 2 GM/50 ML BAG IV SCH ×3 (03:36→20:20)
[2022-05-25] MEDS: KETOROLAC 30 MG/ML VIAL IVP PRN (04:05)
[2022-05-25 05:51] LABS: BASOPHILS % (AUTO) 0.8 %; EOSINOPHILS % (AUTO) 0.8 %; HCT - HEMATOCRIT 38.7 % (37.0-47.0); HGB - HEMOGLOBIN 12.1 g/dL (12.0-16.0); LYMPHOCYTES % (AUTO) 5.5 %; MEAN CORPUSCULAR HEMOGLOBIN 31.7 pg (27.0-31.0); MEAN CORPUSCULAR HGB CONC 31.3 g/dL (32.0-36.0); MEAN CORPUSCULAR VOLUME 101.3 fL (81.0-99.0); MEAN PLATELET VOLUME 10.8 fL (7.9-10.8); MONOCYTES % (AUTO) 4.8 %; PLT - PLATELET COUNT 328 10^3/uL (130-450); RED BLOOD COUNT 3.82 10^6/uL (4.20-5.40); RED CELL DISTRIBUTION WIDTH 13.2 % (12.0-15.0); WHITE BLOOD COUNT 21.1 x10^3/uL (4.8-10.8)
[2022-05-25 05:57] LABS: ABNORMAL LYMPHS % (MANUAL) 0 %; BAND NEUTROPHILS % (MANUAL) 0 %
[2022-05-25 06:06] LABS: CALCIUM 10.2 mg/dL (8.5-10.3); CREATININE 1.4 mg/dL (0.4-1.0); POTASSIUM 4.2 mmol/L (3.5-5.0)
[2022-05-25 06:12] LABS: EOSINOPHILS # (MANUAL) 0.2 10^3/uL (0-0.7); LYMPHOCYTES # (MANUAL) 0.6 10^3/uL (1.5-3.5); LYMPHOCYTES % (MANUAL) 3 %; MONOCYTES # (MANUAL) 0.4 10^3/uL (0.0-1.0); MYELOCYTES % (MANUAL) 6 %; NEUTROPHILS # (MANUAL) 18.6 10^3/uL (1.5-6.6)
[2022-05-25 06:13] LABS: DIFFERENTIAL COMMENT MANUAL DIFFERENTIAL; PLATELET ESTIMATE, MANUAL NORMAL (130-450,000) (NORMAL); PLATELET MORPHOLOGY NORMAL APPEARANCE (NORMAL); RBC MORPHOLOGY (MULTIPLE) NORMAL APPEARANCE (NORMAL); WBC MORPHOLOGY (MULTIPLE) NORMAL APPEARANCE (NORMAL)
[2022-05-25] MEDS: IPRATROPIUM 0.2 MG/ML NEB INH SCH ×3 (07:11→15:27)
[2022-05-25] MEDS: BUDESONIDE 0.5 MG/2 ML NEB INH SCH (07:11)
[2022-05-25] MEDS: allopurinoL 100 MG TABLET PO SCH (08:10)
[2022-05-25] MEDS: FAMOTIDINE 20 MG TABLET PO SCH ×2 (08:11→21:29)
[2022-05-25] MEDS: ASPIRIN EC 81 MG TABLET PO SCH (08:11)
[2022-05-25] MEDS: METOPROLOL SUCCINATE 25 MG TABLET PO SCH (08:11)
[2022-05-25] MEDS: LOSARTAN 50 MG TABLET PO SCH (08:11)
[2022-05-25] MEDS: FUROSEMIDE 40 MG TABLET PO SCH (08:11)
[2022-05-25] MEDS: MULTIVITAMIN W/MINERALS TABLET PO SCH (08:11)
[2022-05-25] MEDS: SACCHAROMYCES BOULARDII 250 MG CAPSULE PO SCH ×2 (08:11→17:29)
[2022-05-25] MEDS: APIXABAN 5 MG TABLET PO SCH ×2 (08:11→21:29)
[2022-05-25] MEDS: predniSONE 5 MG TABLET PO SCH (08:11)
[2022-05-25] MEDS: SPIRONOLACTONE 25 MG TABLET PO SCH (08:11)
[2022-05-25] MEDS: SODIUM CHLORIDE FLUSH 0.9% 10 ML SYRINGE IVP PRN ×2 (11:35→12:10)
--- NOTE | 2022-05-25 17:37 | PROVIDER PROGRESS NOTE ---
Progress Note May 25, 2022 5:14 PM She has been out of bed into a chair. The only thing that limits her is anxiety and fear. She is just afraid she is going to fall. She has been followed by occupational therapy and physical therapy. But her energy is limited. She can only stand for about 10 seconds before she had to sit right back down again. W ith grooming at the sink she was actually able to stand for 30 seconds. No fevers. Eating 100% of her food. Last bowel movement was yesterday. She is a vague anxiety. She just tells me that she is afraid but cannot tell me of what. She says that one of the things that is worrying her is that maybe it is "my time". Active Medications Acetaminophen (Acetaminophen 325 Mg Tablet) 650 mg PO Q4HR PRN PRN Reason: Pain 1 to 4, or Fever Last Admin: 05/23/22 17:01 Dose: 650 mg Albuterol (Albuterol Neb 2.5 Mg/3 Ml) 2.5 mg INH RTQ4H PRN PRN Reason: Wheezing Allopurinol (Allopurinol 100 Mg Tablet) 100 mg PO DAILY [facility] Last Admin: 05/25/22 08:10 Dose: 100 mg Apixaban (Apixaban 5 Mg Tablet) 5 mg PO BID [facility] Last Admin: 05/25/22 08:11 Dose: 5 mg Aspirin (Aspirin Ec 81 Mg Tablet) 81 mg PO DAILY [facility] Last Admin: 05/25/22 08:11 Dose: 81 mg Budesonide (Budesonide 0.5 Mg/2 Ml Neb) 0.5 mg INH RTBID [facility] Last Admin: 05/25/22 07:11 Dose: Not Given Famotidine (Famotidine 20 Mg Tablet) 20 mg PO BID [facility] Last Admin: 05/25/22 08:11 Dose: 20 mg Fluconazole (Fluconazole 100 Mg Tablet) 150 mg PO Q7D [facility] Furosemide (Furosemide 40 Mg Tablet) 40 mg PO DAILY [facility] Last Admin: 05/25/22 08:11 Dose: 40 mg Cefazolin/Sodium Chloride (Ancef 2 Grams/50ml) 2 gm in 50 mls @ 100 mls/hr IV Q8H [facility] Last Infusion: 05/25/22 12:10 Dose: Infused Ipratropium Pony (Ipratropium 0.2 Mg/Ml Neb) 0.5 mg INH RTQID [facility] Last Admin: 05/25/22 15:27 Dose: 0.5 mg Ketorolac Tromethamine (Ketorolac 30 Mg/Ml Vial) 30 mg IVP Q6HR PRN PRN Reason: PAIN 5-7 Stop: 05/25/22 19:03 Last Admin: 05/25/22 04:05 Dose: 30 mg Losartan Potassium (Losartan 50 Mg Tablet) 50 mg PO DAILY [facility] Last Admin: 05/25/22 08:11 Dose: 50 mg Metoprolol Succinate (Metoprolol Succinate 25 Mg Tablet) 25 mg PO DAILY [facility] Last Admin: 05/25/22 08:11 Dose: 25 mg Multivitamins/Minerals (Multivitamin W/Minerals Tablet) 1 tab PO DAILYWM [facility] Last Admin: 05/25/22 08:11 Dose: 1 tab Prednisone (Prednisone 5 Mg Tablet) 5 mg PO DAILYWM [facility] Last Admin: 05/25/22 08:11 Dose: 5 mg Saccharomyces Boulardii (Saccharomyces Boulardii 250 Mg Capsule) 250 mg PO BIDWM [facility] Last Admin: 05/25/22 17:29 Dose: 250 mg Sodium Chloride (Sodium Chloride Flush 0.9% 10 Ml Syringe) 10 ml IVP PRN PRN PRN Reason: NEEDED PER PROVIDER ORDERS Last Admin: 05/25/22 12:10 Dose: 10 ml Sodium Chloride (Sodium Chloride Flush 0.9% 10 Ml Syringe) 10 ml IVP 0100,0900,1700 [facility] Last Admin: 05/25/22 08:12 Dose: 10 ml Spironolactone (Spironolactone 25 Mg Tablet) 25 mg PO DAILY [facility] Last Admin: 05/25/22 08:11 Dose: 25 mg Spironolactone 12.5 mg PO DAILY 12/06/13 Tiotropium Pony [Spiriva] 2 puffs INH DAILY 12/06/13 Aspirin [Adult Low Dose Aspirin EC] 1 tab PO DAILY 07/12/17 Rivaroxaban [Xarelto] 15 mg PO QDDINNER 07/12/17 Furosemide [Lasix] 40 - 80 mg PO DAILY 07/25/18 Metoprolol Succinate [Toprol Xl] 25 mg PO DAILY 03/18/21 Albuterol Sulf [Ventolin Hfa Inhaler] 1 - 2 puffs INH Q4HR PRN 04/09/21 Acetaminophen [Pain Relief Extra Strength] 1,000 mg PO BID MDD 3000 mg 07/17/21 Budesonide [Pulmicort] 0.5 mg INH BID PRN 07/17/21 traMADol [Ultram] 50 - 100 mg PO Q4-6H PRN 05/19/22 Fluconazole [Diflucan] 1 tablet PO Q7D 05/20/22 Losartan Potassium [Cozaar] 100 mg PO DAILY 05/20/22 allopurinoL [Zyloprim] 100 mg PO DAILY 05/20/22 cephALEXin [Keflex] 500 mg PO TID 05/20/22 predniSONE [Deltasone] 10 mg PO DAILY 05/20/22 Exam: Temperature 36.6, heart rate 70, blood pressure 120/69, respirations 18, 89% saturated on 1 L. Her baseline O2 at home was 2 L. At home she gets fairly short of breath with limited activity and has to rest frequently. 5 feet 5 inches female, 98 kg A pleasant, smiling, morbidly obese female sitting comfortably in bed. No respi ratory distress. She knows where she is today, able to follow commands. Then this afternoon she was sleepy, and I had to put my hand on her shoulder to wake her up. She seemed more confused by the afternoon. Neck is supple. Irregular rate and rhythm Lungs have decreased breath sounds throughout all lung mesa. No wheezing. Initially, she had dry crackles at the bases. With prolonged deep breaths, and then some shortness of breath, the crackles dissipated. Abdomen is soft, nontender, obese. Normal bowel sounds. Extremities with bilateral edema Lab: Sodium 138, potassium 4.2, BUN 43, creatinine 1.4. A1c is 6.2% on May 21. Today's fasting glucose is 141. White cell count 21.1. For the last 2 days has been 18,000 so it is up today. Hemoglobin 12.1. Hematocrit 38.7. Platelets 328. Assessment/plan 1. Confusion. This is a lady who has been gradually declining. Her situation and comorbidities were discussed with the palliative nonfarm animal caretaker today who sees her. She is described as having an ongoing functional decline with worsening activity tolerance because of shortness of breath, less able to complete her activities of daily living, and ambulating less and less because of the shortness of breath. But she was still able to ambulate in her home. Since April she has been treated with steroids for gout, treated for UTI, followed by home health for wound care of the tophaceous gout. In addition, she did not wear her CPAP May 23. So both the palliative care consult and I both agree that her confusion is a combination of age with cognitive deficits, a new confusing environment such as a hospital where you cannot sleep, multiple medications including steroids, and on top of that add hypoxemia. Today she is improved. She appears to have more insight. I plan to continue watching her medications with regards to sedative medications. We are tapering off her steroids. Other than Tylenol I am not giving her any opioids for pain management. She is on Toradol with a creatinine that appears to be tolerating it. She received 1 dose on May 23, and 1 dose on May 25. I will give her a total of 5 doses overall but then stop it. As for her decline, we discussed advanced care planning for her. Palliative care will be discussing future plans with transitioning to more of a comfort measures thought process with the family and the patient. 2. Cellulitis of the right foot with MSSA. Antibiotics are Ancef 2 g IV every 8 hours since May 20. Blood cultures have been negative. She was seen by the wound clinic May 24. It is a full-thickness wound over the medial aspect of the first metatarsal. The wound and periwound were debrided yesterday. Dressing consisting of silver calcium alginate with antimicrobial properties was applied. She tolerated the procedure well. Today she is not complaining of any pain. Plan: Continue wound hygiene with the silver calcium alginate, with dressing to remain in place for several days. If the dressing becomes well, nursing should wash the wound with gentle cleanser and apply a Hydrofiber dressing. She is to be seen in 1 week if she is still hospitalized. Otherwise, the patient can go back home or to a detention facility with wound care orders to either home health or to the nursing facility. She should also follow-up with orthopedics as indicated. Plan: Today is day #7 of antibiotics. Continue to elevate the foot, avoid opioids, and continue to work with PT and OT. Unclear why white cell count came back up again today. It might be because she had her foot debrided and this is an inflammatory response. There has been no fever. No increasing redness. No increasing pain. And no increasing drainage. I will continue antibiotics for 1-2 more days. Then consider discharge to detention facility on the recommendation of PT and OT. I will also have to discuss with family what their discharge disposition request is. 3. Tophaceous gout. On allopurinol 100 mg daily, Toradol as needed with judicious doses, and Tylenol. Pain appears controlled. She is not complaining of pain today. Plan is to continue wound care, pain management as above. 4. Skin tear of right elbow as well as skin tear of right lower extremity. Both receiving dressing with silver mesh and a plain foam border dressing. Stay clean for 1 week. And then change the dressing then. 5. COPD without exacerbation. On home O2 settings, which is usually 1 to 2 L. And I will not change any of her medications at this time. 6. Chronic kidney disease with a creatinine that remained stable at 1.4-1.6. Spironolactone and Lasix were resumed May 24. We will monitor BUN and creatinine and avoid nephrotoxic agents to make sure there is no rise with the resumption of her diuretics. 7. Heart failure with preserved ejection fraction. Echocardiogram done May 20 and unable to be completely assess her ventricle because of A-fib. She does have a dilated RV consistent with cor pulmonale. That treatment would consist of diuretics which is noted above in problem #6. 8. Chronic atrial fibrillation. On beta-manuelito. And Eliquis. Heart rate is controlled. There is no excessive bleeding with her debridement. She will be left on these medications at this time.
[2022-05-26] MEDS: SODIUM CHLORIDE FLUSH 0.9% 10 ML SYRINGE IVP SCH ×4 (04:06→20:29)
[2022-05-26] MEDS: CEFAZOLIN 2G/50ML 0.9% NS 2 GM/50 ML BAG IV SCH ×3 (04:06→20:25)
[2022-05-26 05:48] LABS: BASOPHILS % (AUTO) 0.2 %; EOSINOPHILS % (AUTO) 1.2 %; HCT - HEMATOCRIT 40.7 % (37.0-47.0); HGB - HEMOGLOBIN 12.3 g/dL (12.0-16.0); LYMPHOCYTES % (AUTO) 7.4 %; MEAN CORPUSCULAR HEMOGLOBIN 31.7 pg (27.0-31.0); MEAN CORPUSCULAR HGB CONC 30.2 g/dL (32.0-36.0); MEAN CORPUSCULAR VOLUME 104.9 fL (81.0-99.0); MEAN PLATELET VOLUME 10.4 fL (7.9-10.8); MONOCYTES % (AUTO) 4.6 %; NEUTROPHILS % (AUTO) 77.3 %; PLT - PLATELET COUNT 353 10^3/uL (130-450); RED BLOOD COUNT 3.88 10^6/uL (4.20-5.40); RED CELL DISTRIBUTION WIDTH 13.4 % (12.0-15.0); WHITE BLOOD COUNT 20.2 x10^3/uL (4.8-10.8)
[2022-05-26 05:51] LABS: ABNORMAL LYMPHS % (MANUAL) 0 %; BAND NEUTROPHILS % (MANUAL) 0 %
[2022-05-26 06:02] LABS: CALCIUM 10.3 mg/dL (8.5-10.3); CREATININE 1.4 mg/dL (0.4-1.0); POTASSIUM 4.4 mmol/L (3.5-5.0)
[2022-05-26 06:06] LABS: DIFFERENTIAL COMMENT MANUAL DIFFERENTIAL; LYMPHOCYTES # (MANUAL) 2.2 10^3/uL (1.5-3.5); LYMPHOCYTES % (MANUAL) 11 %; METAMYELOCYTES % (MANUAL) 3 %; MONOCYTES # (MANUAL) 0.8 10^3/uL (0.0-1.0); MYELOCYTES % (MANUAL) 8 %; NEUTROPHILS # (MANUAL) 14.9 10^3/uL (1.5-6.6); PLATELET ESTIMATE, MANUAL NORMAL (130-450,000) (NORMAL); PLATELET MORPHOLOGY NORMAL APPEARANCE (NORMAL); RBC MORPHOLOGY (MULTIPLE) NORMAL APPEARANCE (NORMAL); WBC MORPHOLOGY (MULTIPLE) NORMAL APPEARANCE (NORMAL)
[2022-05-26] MEDS: BUDESONIDE 0.5 MG/2 ML NEB INH SCH ×3 (07:08→19:08)
[2022-05-26] MEDS: IPRATROPIUM 0.2 MG/ML NEB INH SCH ×5 (07:08→19:08)
[2022-05-26] MEDS: MULTIVITAMIN W/MINERALS TABLET PO SCH (07:57)
[2022-05-26] MEDS: ASPIRIN EC 81 MG TABLET PO SCH (07:58)
[2022-05-26] MEDS: FUROSEMIDE 40 MG TABLET PO SCH (07:58)
[2022-05-26] MEDS: allopurinoL 100 MG TABLET PO SCH (07:58)
[2022-05-26] MEDS: APIXABAN 5 MG TABLET PO SCH ×2 (07:58→20:27)
[2022-05-26] MEDS: FAMOTIDINE 20 MG TABLET PO SCH ×2 (07:58→20:27)
[2022-05-26] MEDS: METOPROLOL SUCCINATE 25 MG TABLET PO SCH (07:59)
[2022-05-26] MEDS: LOSARTAN 50 MG TABLET PO SCH (07:59)
[2022-05-26] MEDS: SPIRONOLACTONE 25 MG TABLET PO SCH (07:59)
[2022-05-26] MEDS: SACCHAROMYCES BOULARDII 250 MG CAPSULE PO SCH ×2 (07:59→16:56)
[2022-05-26] MEDS: predniSONE 5 MG TABLET PO SCH (07:59)
--- NOTE | 2022-05-26 16:31 | ADVANCE CARE PLANNING NOTE ---
Advance Care Planning - Planning Encounter Date: 05/26/22 Time: 14:00 Purpose: Patient wanted to discuss her care goals and reaffirm her CODE STATUS Parties in Attendance: Daughter (2nd DPOA), patient, and hospitalist Decisional Capacity of the Patient: Currently alert, oriented, and daughter feels mom sensorium is almost back to baseline - Diagnosis for Encounter (1) Failure of outpatient treatment Summary: Had rupture of joint space due to tophaceous gout. It was infected and treated in the outpatient setting with antibiotics. Treatment failed and the patient returned to the ER with delirium, infected foot, cellulitis. Delirium has been slow to resolve - Encounter Subjective/Patient's Story: This patient has been independent and living alone in spite of her history of left infiltrating ductal carcinoma in 2018, COPD with chronic hypoxia requiring oxygen, coronary artery disease with chronic diastolic heart failure. She said that she has had a wonderful life. She smiles and tells me she has "no regrets". She stopped driving around the time of her breast cancer diagnosis because of weakness and shortness of breath. It also did not help that she started having gout attacks that year and she really could not walk on her foot. She relies on friends and neighbors to help her clean her house, buy her groceries, light cooking. 2 daughters live on the [facility], and one of them is here with her right now. She is one of her DPOA's. [place] one of her nieces and is her second DPOA, after her daughter. She feels like life is gotten "narrowed down" and while it was pleasant, it was tolerable because she could still slowly get around in her home, read, bathe her self and feed herself. That was in April. Mobility was limited because of pain in her foot from gout, and her worsening dyspnea on exertion. With this admission for an infected foot from an erupted joint that was secondary to tophaceous gout, she feels like she is lost a tremendous amount of ground. She is very fatalistic and feels like she may not be able to regain the strength that would allow her to go back to her mobility status from just a month ago. So she wants to make sure that I am clear, and that the hospital is clear, about how far she wants to go. She is followed by palliative care, Shamika Rucker. CARLENE Rucker did see her on May 24. The patient states that she is a DO NOT RESUSCITATE. She would also like to plan for the inevitability of continued weakness and immobility. Our current plan is to transition her to rehab status to see if she can regain some mobility after this admission. She says she is perfectly willing to work with physical therapy, Occupational Therapy. See if she can at least go from supine to sitting and then standing with only standby assist. She understands that she is touchdown weightbearing on the affected gouty foot that has been debrided (and seen by orthopedics and wound care). However, she is exasperated and saying that she really is off balance if she cannot put her weight on that foot. She would feel much sturdier and safer if she could walk on that foot. She points out that she feels like she will not be with us in the next few months, and what will be the point of taking away her mobility if she is not can to be with us in the next few months. With this in mind, she furthers the planning for her future but stating that after she completes rehab, she would like to transition to hospice care. While she appreciates our care here, and is very appreciative of the nursing care, she has no desire to ever to come back to the hospital. She looks back on the last 3 to 5 years and feels that she has lost a lot of mobility, independence, with increasing pain and increasing dyspnea. All of this was "tolerable" but this last episode where she was delirious, confused, and not in her right mind is not tolerable. She never wants to reach the point that she is a constantly confused elderly woman not able to to communicate with her friends and loved ones. For that reason, she wants to proceed with hospice if she is not able to successfully achieve her goals with rehab. She does not want to be at the point where she is delirious, confused, and not able to converse. Objective/Medical Story: This is an 87-year-old female who lives at home alone but 2 nieces help her. She has a history of COPD and is on 2 L of O2 at home, has a history of breast cancer, sees the Oncologist Dr Chavez at [facility] and sees Shamika Rucker NP in Palliative Care. There is a history of a pacemaker and A-fib and she takes Xarelto, and she may have a Hx of systolic heart failure since she takes those meds and had a prior [place] and is followed by Cardiology. For the last 5-6 days she has had a gout flareup on her right foot. The tophus then opened, draine fluid and redness spread up the foot. She was started on Keflex which she has been on for 4 days. [facility] was ordered to help with her wound. She was put on Tramadol for pain control and she was already on Prednisone daily. A caregiver checked on her this morning and found her on the floor, she had slid out of her recliner without it being witnessed. She does not know how long she layed there but did not have syncope. Patient was brought to the emergency room. She described pain in the R foot and feeling tired and weaker than her usual. Work-up included a head CT that was negative. Labs show WBC of 18, lactic acid 2.1, creatinine 1.7 (baseline creatinine 1.4). [facility] had done a wound culture that was sent to our lab yesterday, and it is already growing Staph aureus, but no sensitivities are available yet. The pt has no fever currently and vital signs are normal in the ER. The ED provider has reached out to me on the Hospitalist team and we discussed her care going forward to include IV antibiotics for cellulitis that has failed outpatient treatment and to evaluate the fall at home, which may be from orthostasis, since she has acute on chronic kidney disease by her labs. Patient has a POLST form on file in her EMR, which indicates she wants to be a DNR/DNI. - Past Medical History Cardiovascular: reports: Congestive heart failure, Hypertension, Coronary artery disease, [place], Atrial fibrillation Respiratory: reports: COPD, Shortness of breath, Sleep apnea, CPAP use Neuro: reports: Headaches, Peripheral neuropathy, Other Endocrine/Autoimmune: reports: Other (She is on Prednisone for her arthritis, therefore is immunocompromised.) GI: reports: None INGOT PASSER: reports: Breast cancer : reports: Incontinence, Renal insuffiency HEENT: reports: Chronic vision loss, Macular degeneration, Other Psych: reports: None Musculoskeletal: reports: Osteoarthritis, Gout, Chronic back pain Derm: reports: Other MRSA Hx?: No Since admission she has been on empiric Ancef. Her gouty joint has been debrided by the wound clinic. Although MRI shows osteomyelitis, orthopedics does not feel surgery is indicated and would like to see the patient in the outpatient clinic in the next 1 to 2 weeks. Blood cultures have been negative. Patient continues to have an elevated white cell count to 20.2 thousand. However no fever. Her disorientation has finally cleared and she is alert, oriented and able to speak to me today. Goals of Care: I discussed the case with her grievance and appeals specialist. Ms. Jeff warns me that this patient vacillates in decision making. Today is a day that she is clearly saying she wants hospice. However she may change her mind. As such right now the goal is to get her through this week of rehab. Reach that goal of going from supine to sitting to standing. Work with PT and OT to be able to slowly dress herself at home. When she gets home, palliative care will discuss with her whether she wants hospice or not. Plan: Case discussed with CARLENE Davila and we went over the logistics. Daughter that is present today will discuss this with her sister who is flying in from the [facility] on Tuesday. The 2 of them plan to come up with caregivers to help with her mom when she returns to home. They may end up staying here to help take care of her as well. They will also update the other DURABLE POWER OF FORMER HAND, kristencecille Vincent. I have reassured the patient that I have noted that she is a DO NOT RESUSCITATE. She already has a POLST form at home. Code Status: Do Not Attempt Resuscitation Time spent on advance care plannin minutes
--- NOTE | 2022-05-26 16:56 | PROVIDER PROGRESS NOTE ---
Subjective - Prog Note Date Prog Note Date: 05/26/22 Prog Note Time: 11:00 - Subjective Pt reports feeling: No change Subjective: Patient refers mainly to her shortness of breath. She feels like she is always exhausted, short of breath. Even the minimal effort taken to transfer her from bed to chair wiped her out. In speaking to me for over an hour and a half (advance care planning conversation plus this) she is pursed lip breathing, using her abdominal muscles to breathe. However, she is pleased to report that she knows where she is, and why she is here. She said that she is deeply unsettled at the idea that she was confused, unable to be lucid, and unable to communicate. She says that that is her biggest fear. She does not want to end up babbling, elderly, demented person I saw the patient at around 11 in the morning. I then returned to her room when her daughter wanted to be updated on her condition. A separate advance care conversation was held with the daughter and the patient at the patient's request Current Medications - Current Medications Current Medications: Active Medications Acetaminophen (Acetaminophen 325 Mg Tablet) 650 mg PO Q4HR PRN PRN Reason: Pain 1 to 4, or Fever Last Admin: 05/23/22 17:01 Dose: 650 mg Albuterol (Albuterol Neb 2.5 Mg/3 Ml) 2.5 mg INH RTQ4H PRN PRN Reason: Wheezing Allopurinol (Allopurinol 100 Mg Tablet) 100 mg PO DAILY [facility] Last Admin: 05/26/22 07:58 Dose: 100 mg Apixaban (Apixaban 5 Mg Tablet) 5 mg PO BID [facility] Last Admin: 05/26/22 07:58 Dose: 5 mg Aspirin (Aspirin Ec 81 Mg Tablet) 81 mg PO DAILY [facility] Last Admin: 05/26/22 07:58 Dose: 81 mg Budesonide (Budesonide 0.5 Mg/2 Ml Neb) 0.5 mg INH RTBID [facility] Last Admin: 05/26/22 07:08 Dose: 0.5 mg Famotidine (Famotidine 20 Mg Tablet) 20 mg PO BID [facility] Last Admin: 05/26/22 07:58 Dose: 20 mg Fluconazole (Fluconazole 100 Mg Tablet) 150 mg PO Q7D [facility] Furosemide (Furosemide 40 Mg Tablet) 40 mg PO DAILY [facility] Last Admin: 05/26/22 07:58 Dose: 40 mg Cefazolin/Sodium Chloride (Ancef 2 Grams/50ml) 2 gm in 50 mls @ 100 mls/hr IV Q8H [facility] Last Infusion: 05/26/22 13:00 Dose: Infused Ipratropium Trezevant (Ipratropium 0.2 Mg/Ml Neb) 0.5 mg INH RTQID [facility] Last Admin: 05/26/22 14:48 Dose: 0.5 mg Losartan Potassium (Losartan 50 Mg Tablet) 50 mg PO DAILY [facility] Last Admin: 05/26/22 07:59 Dose: 50 mg Metoprolol Succinate (Metoprolol Succinate 25 Mg Tablet) 25 mg PO DAILY [facility] Last Admin: 05/26/22 07:59 Dose: 25 mg Multivitamins/Minerals (Multivitamin W/Minerals Tablet) 1 tab PO DAILYWM [facility] Last Admin: 05/26/22 07:57 Dose: 1 tab Prednisone (Prednisone 5 Mg Tablet) 5 mg PO DAILYWM [facility] Last Admin: 05/26/22 07:59 Dose: 5 mg Saccharomyces Boulardii (Saccharomyces Boulardii 250 Mg Capsule) 250 mg PO BIDWM [facility] Last Admin: 05/26/22 07:59 Dose: 250 mg Sodium Chloride (Sodium Chloride Flush 0.9% 10 Ml Syringe) 10 ml IVP PRN PRN PRN Reason: NEEDED PER PROVIDER ORDERS Last Admin: 05/25/22 12:10 Dose: 10 ml Sodium Chloride (Sodium Chloride Flush 0.9% 10 Ml Syringe) 10 ml IVP 0100,0900,1700 [facility] Last Admin: 05/26/22 07:57 Dose: 10 ml Spironolactone (Spironolactone 25 Mg Tablet) 25 mg PO DAILY [facility] Last Admin: 05/26/22 07:59 Dose: 25 mg Spironolactone 12.5 mg PO DAILY 12/06/13 Tiotropium Trezevant [Spiriva] 2 puffs INH DAILY 12/06/13 Aspirin [Adult Low Dose Aspirin EC] 1 tab PO DAILY 07/12/17 Rivaroxaban [Xarelto] 15 mg PO QDDINNER 07/12/17 Furosemide [Lasix] 40 - 80 mg PO DAILY 07/25/18 Metoprolol Succinate [Toprol Xl] 25 mg PO DAILY 03/18/21 Albuterol Sulf [Ventolin Hfa Inhaler] 1 - 2 puffs INH Q4HR PRN 04/09/21 Acetaminophen [Pain Relief Extra Strength] 1,000 mg PO BID MDD 3000 mg 07/17/21 Budesonide [Pulmicort] 0.5 mg INH BID PRN 07/17/21 traMADol [Ultram] 50 - 100 mg PO Q4-6H PRN 05/19/22 Fluconazole [Diflucan] 1 tablet PO Q7D 05/20/22 Losartan Potassium [Cozaar] 100 mg PO DAILY 05/20/22 allopurinoL [Zyloprim] 100 mg PO DAILY 05/20/22 cephALEXin [Keflex] 500 mg PO TID 05/20/22 predniSONE [Deltasone] 10 mg PO DAILY 05/20/22 Objective - Vital Signs/Intake & Output Reviewed Vital Signs: Yes Vital Signs: Vital Signs x48h Temp Pulse Pulse Resp BP Pulse Ox O2 Flow Rate 05/26/22 15:41 36.7 C 70 20 134/66 H 93 1 05/26/22 10:50 71 20 0.5 Intake & Output: Intake & Output 05/23/22 05/24/22 05/25/22 05/26/22 23:59 23:59 23:59 23:59 Intake Total 3607.770 2505.552 780 660 Output Total 219 743 7282 500 Balance 3332.770 2155.552 -370 160 - Objective General Appearance: positive: Alert, Mild distress, Other (Morbidly obese elderly female who appears exhausted, and the effort of speaking makes her tachypneic and short of breath) Eyes Bilateral: positive: PERRL, EOMI ENT: positive: No signs of dehydration Neck: negative: Stiff neck Respiratory: positive: Rales (Faint, at the bases. The rest of her of the lung exam is very, very quiet. There is almost no air movement audible. But there is no wheezing) Cardiovascular: positive: Regular rate & rhythm (Distant cardiac tones) Abdomen: positive: Non-tender, Other (Hugely obese pannus with hypoactive bowel sounds,) Skin: positive: Warm, Dry Extremities: positive: Pedal edema, Other (Right foot is wrapped in gauze. Edema present to just below the knee. Left foot with less edema than right foot) Neurologic/Psychiatric: positive: Oriented x3, CN's nml (2-12), Motor nml, Depressed mood/affect - Lab Results Fish Bones: 05/26/22 05:41 05/26/22 05:41 Other Labs: Lab Results x24hrs 05/26/22 05/26/22 05/26/22 Range/Units 13:50 05:41 05:41 WBC 20.2 H (4.8-10.8) x10^3/uL RBC 3.88 L (4.20-5.40) 10^6/uL Hgb 12.3 (12.0-16.0) g/dL Hct 40.7 (37.0-47.0) % MCV 104.9 H (81.0-99.0) fL MCH 31.7 H (27.0-31.0) pg MCHC 30.2 L (32.0-36.0) g/dL RDW 13.4 (12.0-15.0) % Plt Count 353 (130-450) 10^3/uL MPV 10.4 (7.9-10.8) fL Neut # (Auto) Not Reportable Lymph # (Auto) Not Reportable [place] # (Auto) Not Reportable Eos # (Auto) Not Reportable Baso # (Auto) Not Reportable Absolute Nucleated RBC Not Reportable Total Counted 100 Band Neuts % (Manual) 0 (0 - 10) % Abnorm Lymph % (Manual) 0 % Metamyelocytes % 3 H ( - 0) % Myelocytes % 8 H ( - 0) % Nucleated RBC % Not Reportable Neutrophils # (Manual) 14.9 H (1.5-6.6) 10^3/uL Lymphocytes # (Manual) 2.2 (1.5-3.5) 10^3/uL Monocytes # (Manual) 0.8 (0.0-1.0) 10^3/uL Eosinophils # (Manual) 0.0 (0-0.7) 10^3/uL Basophils # (Manual) 0.0 (0-0.1) 10^3/uL Differential Comment MANUAL DIFFERENTIAL WBC Morphology NORMAL APPEARANCE (NORMAL) Platelet Estimate NORMAL (130-450,000) (NORMAL) Platelet Morphology NORMAL APPEARANCE (NORMAL) RBC Morph Micro Appear NORMAL APPEARANCE (NORMAL) Sodium 142 (135-145) mmol/L Potassium 4.4 (3.5-5.0) mmol/L Chloride 110 (101-111) mmol/L Carbon Dioxide 26 (21-32) mmol/L Anion Gap 6.0 (6-13) BUN 42 H (6-20) mg/dL Creatinine 1.4 H (0.4-1.0) mg/dL Estimated GFR (MDRD) 35 L (>89) Glucose 122 H (70-100) mg/dL Calcium 10.3 (8.5-10.3) mg/dL SARS-CoV-2 (PCR) NOT DETECTED ABX Reporting Has patient been on IV antibiotics over the past 48 hours?: Yes Assessment/Plan - Problem List (1) Cellulitis of right foot Impression: She failed outpatient therapy with Keflex. Wound cultures from the outpatient setting showed methicillin sensitive Staph aureus. She is immunocompromised due to steroid use. On admission she was started on empiric vancomycin and ceftriaxone. Ancef was started May 20 at 2 g IV every 8 hours. Vancomycin and ceftriaxone were discontinued. She has been afebrile while here. White cell count has not truly responded and has stayed elevated throughout the admission. She was 26.3 thousand on admission and the lowest she has been is 18,000. Today she is 20.2. Debridement of the tophaceous toe was done May 24. Blood cultures have been negative since May 19. Plan: She is day 8 of antibiotics. She had debridement of the first metatarsal on May 24. She is supposed to have her dressing changes down for a few days. And to be changed again on May 31 if she is still in the hospital. Otherwise anticipation is that a [facility] facility or [facility] will change her dressing I will continue her antibiotics for 1 more day. But I would like to take down the dressing and take a look at her foot to see if antibiotics need to be continued or can be stopped. (2) Confusion Resolved. Medications were readjusted such as stopping oxycodone 10 mg. I have read the notes from those days where the patient was described as tangential in conversation and could not keep on topic. She was also hallucinating. With today's conversation she is very much on topic. She is very focused on what she wants and she how she would like her daughters to plan for future care in her home. No hallucinations. Daughter is at the bedside. We were planning to discharging the patient to [facility] facility today for rehab. However problem #5 and problem #10 is worse today and we will hold off on transfer today. (3) MSSA infection Staph aureus is growing in the wound cx. It is pansensitive. Plan: As in #1 (4) Tophaceous gout Conclusion/Plan: Tophaceous gout joint ruptured. CT w/ contrast imaging done and it was read as cellulitis, osteomyelitis and septic arthritis, and also the 2nd toe has a fracture. Treatment has consisted of resuming allopurinol and treating the secondary infection. A consult was done by Orthopedist Dr Hough. He thinks the fracture and the bone changes that were read as osteo are more likley from gouty destruction. He recommended to treat the cellulitis and the gout and that she will likely not need debridement or surgery. She will need an Ortho F/U after discharge however. Resumed on her usual prednison. Plan: Toradol being used sparingly but avoid overuse due to CKD Cont back on her usual Prednisone Target uric level is 4 or under to promote healing, as per Wound doctor, so will increase the allopurinol dose. Continue PT and OT to prevent deconditioning. But this lady was already minimally active at home, did no laundry or cooking or driving anymore. She mostly sat in her house, reported to me by Shamika Rucker NP Await findings and recommendations from [facility], appointment is at 1400 today (5) COPD (chronic obstructive pulmonary disease) Conclusion/Plan: Clinically, she does not appear to have a COPD exacerbation currently. She is on Home O2 but her home settings are not known. Plan: We will continue with her supplemental oxygen, keeping saturations 90 to 93% Continue with her usual COPD meds as well (6) Fall at home Conclusion/Plan: Palliative Care provider Shamika Rucker NP came to see her at admission and provided me with details about her past history yesterday. Patient has had multiple falls at home. Patient mostly sits in her chair at home and furniture surfs when walking. She is getting forgetful, and that definitely was worsened by the infection. Her orthostatic vital sign checks were normal Plan: Continue on telemetry to watch for arrhythmias Continue her usual cardiac meds with holding parameters for low BP. PT and OT to continue (however she has been uninterested with participating thus far, possibly from over-sedation and confusion) (7) L hip pain Conclusion/Plan: Improved with pain meds This was noticed by the overnight RN when they had to reposition her in her bed starting the first night here. The patient also told Shamika Rucker that she had pain in L hip. Plain films of the left hip and pelvis were done after admission and showed no fracture, just arthritic changes. I informed the patient Plan: Give pain meds as needed (8) CKD Conclusion/Plan: Stable. Labs were all reviewed today. Her creat remains at 1.4-1.6, after receiving 2 days of IV fluids and being off her Spironolactone and Lasix for several days Plan: Will resume her Spironolactone. Will also restart the Lasix Follow BMP daily (9) Chronic a-fib Conclusion/Plan: HR is controlled Plan: Continue on telemetry We will keep her on her usual heart rate slowing meds and anticoagulants. If extensive foot surgery is needed, her DOAC will need to be stopped the day before. (10) Hx of heart failure Conclusion/Plan: We had no Echo in this EMR to confirm if she has systolic or diastolic heart failure. 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 An Echo was done 05/20 and that showed preserved LVEF and diastolic fnc could not be assessed in Afib. She does have a dilated RV, consistent with Cor Pulmonale. We stopped the IV fluids that she received for 2 days Beta-manuelito has been resumed, with holding parameters written. Plan: Cont B-manuelito Will restart Spironolactone and Lasix (11) ANNI on CPAP Conclusion/Plan: Plan: Continue her home CPAP device to be used while she is here. 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 This is consistent with Cor Pulmonale. Likely it was caused by her COPD, that is severe enough to need home oxygen 24/7 and by her sleep apnea, needing a CPAP. Plan: Will restart Spironolactone and Lasix (13) Rhabdomyolysis Conclusion/Plan: Resolved Patient was found on the ground of her home by her caregiver, and it is not known how long she was down on the ground. No CK was done at admission in the ED. A CK was done after admission. Her labs were all reviewed today. Her CK was elevated at 358 and has decreased to normal today at 177. Therefore, she did have mild rhabdo. She received 2 days of IV fluids, stopped 05/20. Plan: Avoid nephrotoxins.
[2022-05-26] MEDS: ALBUTEROL NEB 2.5 MG/3 ML INH PRN (19:08)
[2022-05-27] MEDS: ALBUTEROL NEB 2.5 MG/3 ML INH PRN (02:03)
[2022-05-27] MEDS: CEFAZOLIN 2G/50ML 0.9% NS 2 GM/50 ML BAG IV SCH ×2 (04:25→12:07)
[2022-05-27 05:03] LABS: BASOPHILS % (AUTO) 0.9 %; EOSINOPHILS % (AUTO) 1.1 %; HCT - HEMATOCRIT 39.9 % (37.0-47.0); HGB - HEMOGLOBIN 11.9 g/dL (12.0-16.0); LYMPHOCYTES % (AUTO) 7.8 %; MEAN CORPUSCULAR HEMOGLOBIN 31.2 pg (27.0-31.0); MEAN CORPUSCULAR HGB CONC 29.8 g/dL (32.0-36.0); MEAN CORPUSCULAR VOLUME 104.5 fL (81.0-99.0); MEAN PLATELET VOLUME 10.6 fL (7.9-10.8); MONOCYTES % (AUTO) 4.6 %; NEUTROPHILS % (AUTO) 76.9 %; PLT - PLATELET COUNT 378 10^3/uL (130-450); RED BLOOD COUNT 3.82 10^6/uL (4.20-5.40); RED CELL DISTRIBUTION WIDTH 13.6 % (12.0-15.0); WHITE BLOOD COUNT 20.1 x10^3/uL (4.8-10.8)
[2022-05-27 05:06] LABS: ABNORMAL LYMPHS % (MANUAL) 0 %; BAND NEUTROPHILS % (MANUAL) 0 %
[2022-05-27 05:14] LABS: CALCIUM 10.1 mg/dL (8.5-10.3); CREATININE 1.4 mg/dL (0.4-1.0); POTASSIUM 4.2 mmol/L (3.5-5.0)
[2022-05-27] MEDS: ACETAMINOPHEN 325 MG TABLET PO PRN (05:16)
[2022-05-27 05:30] LABS: LYMPHOCYTES # (MANUAL) 1.6 10^3/uL (1.5-3.5); LYMPHOCYTES % (MANUAL) 8 %; METAMYELOCYTES % (MANUAL) 3 %; MYELOCYTES % (MANUAL) 2 %; NEUTROPHILS # (MANUAL) 16.5 10^3/uL (1.5-6.6)
[2022-05-27 05:31] LABS: DIFFERENTIAL COMMENT MANUAL DIFFERENTIAL; PLATELET ESTIMATE, MANUAL NORMAL (130-450,000) (NORMAL); PLATELET MORPHOLOGY NORMAL APPEARANCE (NORMAL); RBC MORPHOLOGY (MULTIPLE) NORMAL APPEARANCE (NORMAL); WBC MORPHOLOGY (MULTIPLE) NORMAL APPEARANCE (NORMAL)
[2022-05-27] MEDS: BUDESONIDE 0.5 MG/2 ML NEB INH SCH (07:30)
[2022-05-27] MEDS: IPRATROPIUM 0.2 MG/ML NEB INH SCH ×2 (07:30→10:45)
[2022-05-27] MEDS: SPIRONOLACTONE 25 MG TABLET PO SCH (08:03)
[2022-05-27] MEDS: allopurinoL 100 MG TABLET PO SCH (08:03)
[2022-05-27] MEDS: LOSARTAN 50 MG TABLET PO SCH (08:03)
[2022-05-27] MEDS: FUROSEMIDE 40 MG TABLET PO SCH (08:03)
[2022-05-27] MEDS: METOPROLOL SUCCINATE 25 MG TABLET PO SCH (08:04)
[2022-05-27] MEDS: predniSONE 5 MG TABLET PO SCH (08:04)
[2022-05-27] MEDS: APIXABAN 5 MG TABLET PO SCH (08:04)
[2022-05-27] MEDS: ASPIRIN EC 81 MG TABLET PO SCH (08:04)
[2022-05-27] MEDS: FAMOTIDINE 20 MG TABLET PO SCH (08:05)
[2022-05-27] MEDS: SACCHAROMYCES BOULARDII 250 MG CAPSULE PO SCH (08:05)
[2022-05-27] MEDS: SODIUM CHLORIDE FLUSH 0.9% 10 ML SYRINGE IVP SCH (08:10)
[2022-05-27 08:27] VITALS: BP 127/64
[2022-05-27] MEDS ORDERED: FLUCONAZOLE 100 MG TABLET PO SCH (09:00)
--- NOTE | 2022-05-27 10:23 | Discharge Plan ---
"Discharge Plan for SNF / [facility] - Discharge Plan And Transition Orders Problem Reviewed?: Yes Disposition: 03 SNF DC/Xfer Condition: Fair Allergies and Adverse Reactions: Allergies Allergy/AdvReac Type Severity Reaction Status Date / Time alprazolam [From Xanax] Allergy Unknown Verified 11/19/21 11:37 azithromycin [From Zithromax] Allergy Unknown Verified 11/19/21 11:37 warfarin Allergy Rash Verified 11/19/21 11:37 Health Concerns: Unfortunately you already have chronic disabling shortness of breath from lung disease and heart disease. 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 You relied on the kindness of friends, family, neighbors to do a lot for you. Unfortunately you started having gout attacks, and it really reduced your mobility. One of your toes broke open and the skin became infected and you were started on antibiotics. After a few days of this it did not work, you became worse, more confused and short of breath. You fell out of bed and you were found by one of your caregivers and they brought you to the emergency room. The conditions that we treated were: 1. Breakdown of muscle from falling on the floor flooded your bloodstream and caused acute kidney insufficiency. This was treated with intravenous hydration. 2. An eroded bone in your toe from gout. No surgery was needed for that 3. Infection of the skin around the eroded bone in your foot. You have been on antibiotics for 9 days for that and we we will continue antibiotics until the white cell count indicating infection is better. You also received incision and debridement of the infected skin. You will need weekly dressing changes. 4. Weakness from the fall, pain in the foot, and chronic shortness of breath resulted in a sharply reduced mobility and function. You have been seen by physical therapy and Occupational Therapy. They recommend that you continue getting therapy through halfway facility services. As such you will be transferred to [facility] for short-term rehab. Plan of Treatment: You are wanting to try short-term rehab to see if you can increase some of your strength. You want to be able to transition from laying down, to sitting, to standing. You want to be able to pivot and transfer to a chair or a wheelchair. Orthopedics asked you to be partial weightbearing on the infected foot. But you are very clear in stating that this only leaves you unstable, and you do not feel very sturdy while walking. As such I am going to recommend that you go ahead and do full weightbearing on that foot. You also feel that you have lost quite a bit of ground over the last few months. You have crossed that invisible line where quality of life is not achievable for you right now. While you are willing to try short-term rehab to see if you can improve functionality, you do not want further aggressive treatment. If you are not able to achieve the independence you want, you want to immediately transition to hospice care. You already see CARLENE Davila. She has palliative care. She and I will both make sure that hospice is notified for future needs. Care Goals: To be as comfortable as possible for the remaining time she has on this earth Assessment: Patient is alert, oriented. She did have quite a bit of delirium and confusion in her first 2 to 3 days of admission. By May 26 sensorium had cleared to baseline. Daughter who is DURABLE POWER OF INSTITUTIONAL NUTRITION CONSULTANT stated that mom was able to make her own decisions. - SNF / [facility] Transition Orders Admit to (Facility): [facility] Under the care of (Name): Nay Maryann Discharge Diagnosis: 1. Metabolic encephalopathy present on admission, resolved 2. Failure of outpatient management for cellulitis 3. Cellulitis of foot with MSSA 4. Tophaceous gout with bone erosion 5. Skin tear of right elbow, right lower extremity 6. COPD without exacerbation 7. Chronic respiratory failure with hypercapnia and hypoxia 8. Chronic kidney disease 9. Chronic heart failure with preserved ejection fraction as well as cor pulmonale 10. Chronic atrial fibrillation Medicare Certification Statement: [facility] cert[facility] care is medically necessary on a continuing basis for any of the conditions for which she/he is receiving care during hospitalization. Notify PCP of admission and forward orders to primary provider for signature. Weight on admission and: Weekly Other Notification Orders: Call PCP immediately if patient develops dyspnea, chest pain/tightness or edema. House Bowel Program: Yes Additional Bowel Program Orders: If no BM after 2 days, nurse may give M.O.M. 30ml PO PRN and/or ducolax Supp 1 UT and/or BRANT 250mg P.O., and/or senna 1-2 tabs PO. On day 3 nurse may give repeat above order until residents constipation is resolved. Annual Influenza Vaccine (between Dec 10 and July 09): Yes Treatments & Other Orders: Wound Assessment. Wound #1 Right 1st metatarsal head. The wound is full thickness over the medial aspect of the 1st metatarsal head. The wound bed is 100% thick slough. Wound edges are attached, no undermining or tunneling. There is reported heavy drainage. Periwound is erythematous with dry peeling skin. No odor. Currently on IV antibiotics. Wound #2 right elbow Measuring 2.2 x 1.5 x 0.1. ISTAP type 1 skin tear. Skin repositioned to completely cover wound bed. No drainage. No s/s infection. Woun d #3 right lower leg Measuring 2.0 x 1.0 x 0.1. ISTAP type 2 skin tear. Partial flap loss that does not completely cover wound bed. No drainage. No s/s infection. 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 Wound Debridement: Wound #1 Right 1st metatarsal head (medial): Pre: 0.9 x 1.5 x +0.1 Post: 1.0 x 1.7 x 0.1 Total area debrided: 1.7 sq cm. After informed consent, the wound and periwound were cleansed, then 5% topical lidocaine was applied for local anesthesia. Using a #15 blade, the wound was sharply debrided of non-viable and subcutaneous tissue down to viable bleeding subcutaneous tissue. Skin edges were freshened in a similar fashion. Hemostasis was achieved with pressure and time. A new dressing consisting of Ag calcium alginate with antimicrobial properties was applied. Patient tolerated the procedure well without apparent complications. Appropriate follow up instructions were given. Conclusion and Plan. (1) Open wound of right foot. Qualifiers: Encounter type: initial encounter Qualified Code(s): S91.301A - Unspecified open wound, right foot, initial encounter. Assessment/Plan: Located on the first metatarsal head, medial aspect due to tophaceous gout. On allopurinol and IV antibiotics. Plan of care: Wound hygiene with sharp debridement and antimicrobial solution. Dressing with calcium alginate with Ag, optilock super absorbent pad, roll gauze and tape. A tubigrip size D was applied to right lower leg. Dressing should stay in place for several days. If dressing becomes soiled, nursing should wash wound with gentle cleanser and apply a hydrofiber dressing to wound bed followed by plain foam, secured with roll gauze and tape. RTC in one week if still hospitalized. Otherwise, I am happy to send wound care orders to [facility] upon discharge. Patient to follow up with Dr. Hough as indicated. (2) Tophaceous gout. Assessment/Plan: Follow up with Dr. Hough for reevaluation and x-ray. Continue current gout treatment and wound care as above. (3) ISTAP type 1 skin tear of right elbow. Assessment/Plan: Wound hygiene with antimicrobial solution. Dressing with Ag mesh followed by a plain foam border dressing. Dressing should stay dry and intact for up to one week. If dressing needs to be changed, nursing staff may apply xeroform under a plain foam border dressing. RTC in one week is she is still hospitalized. (4) ISTAP type 2 skin tear of right lower extremity. Assessment/Plan: Wound hygiene with antimicrobial solution. Dressing with Ag mesh followed by a plain foam border dressing. Dressing should stay dry and intact for up to one week. If dressing needs to be changed, nursing staff may apply xeroform under a plain foam border dressing. Oxygen Orders: Nasal cannula oxygen to maintain O2 sat greater than 88%.-92% Medication Orders: PLEASE REFER TO THE DISCHARGE MEDICATION LIST. - Diet Type: Geriatric Texture[facility] Liquids: Thin May have monthly special meal: Yes - Therapies | Activity Therapy: Evaluation | Treat if indicated: PT, OT Rehabilitation Potential: Return to independent living Activity: Wt Bearing as Tolerated Assistance Devices: Wheelchair, Walker"
--- NOTE | 2022-05-27 20:33 | DISCHARGE SUMMARY ---
"Discharge Summary Admit Date: 05/19/22 Discharge Date: 05/27/22 Discharging Provider: Elenita Weldon MD Primary Care Provider: Aleja Wolf Code Status: Do Not Attempt Resuscitation Condition at Discharge: Fair Discharge Disposition: SNF DC/Xfer - DIAGNOSES Discharge Diagnoses with Status of Each Condition: 1. Metabolic encephalopathy present on admission, resolved 2. Failure of outpatient management for cellulitis 3. Cellulitis of foot with MSSA 4. Tophaceous gout with bone erosion 5. Skin tear of right elbow, right lower extremity 6. COPD without exacerbation 7. Chronic respiratory failure with hypercapnia and hypoxia 8. Chronic kidney disease 9. Chronic heart failure with preserved ejection fraction as well as cor pulmonale 10. Chronic atrial fibrillation 11. Obstructive sleep apnea on CPAP 12. Cor pulmonale 13. Rhabdomyolysis 14. Frequent falls at home - HPI History of Present Illness: This is an 87-year-old female who lives at home alone but 2 children help her. She has a history of COPD and is on 2 L of O2 at home, has a history of breast cancer, sees the Oncologist Dr Chavez at [facility] and sees Shamika Rucker NP in Palliative Care. There is a history of a pacemaker and A-fib and she takes Xarelto, and she may have a Hx of systolic heart failure since she takes those meds and had a prior OH and is followed by Cardiology. For the last 5-6 days she has had a gout flareup on her right foot. The tophus then opened, draine fluid and redness spread up the foot. She was started on Keflex which she has been on for 4 days. [employer] was ordered to help with her wound. She was put on Tramadol for pain control and she was already on Prednisone daily. A caregiver checked on her this morning and found her on the floor, she had slid out of her recliner without it being witnessed. She does not know how long she layed there but did not have syncope. Patient was brought to the emergency room. She described pain in the R foot and feeling tired and weaker than her usual. Work-up included a head CT that was negative. Labs show WBC of 18, lactic acid 2.1, creatinine 1.7 (baseline creatinine 1.4). [employer] [facility] had done a wound culture that was sent to our lab yesterday, and it is already growing Staph aureus, but no sensitivities are available yet. The pt has no fever currently and vital signs are normal in the ER. The ED provider has reached out to me on the Hospitalist team and we discussed her care going forward to include IV antibiotics for cellulitis that has failed outpatient treatment and to evaluate the fall at home, which may be from orthostasis, since she has acute on chronic kidney disease by her labs. Patient has a POLST form on file in her EMR, which indicates she wants to be a DNR/DNI. - Past Medical History Cardiovascular: reports: Congestive heart failure, Hypertension, Coronary artery disease, OH, Atrial fibrillation Respiratory: reports: COPD, Shortness of breath, Sleep apnea, CPAP use Neuro: reports: Headaches, Peripheral neuropathy, Other Endocrine/Autoimmune: reports: Other (She is on Prednisone for her arthritis, therefore is immunocompromised.) GI: reports: None BAND SAW FILER: reports: Breast cancer : reports: Incontinence, Renal insuffiency HEENT: reports: Chronic vision loss, Macular degeneration, Other Psych: reports: None Musculoskeletal: reports: Osteoarthritis, Gout, Chronic back pain Derm: reports: Other MRSA Hx?: No - Past Surgical History Ortho: reports: Knee replacement /BAND SAW FILER: reports: Other Cardiovascular: reports: Coronary stent, Pacemaker, Other - CONSULTS | PROCEDURES Consultations: Shamika Rucker, palliative care; Radha Preston wound care; carmen mosquera [facility] Procedures: Chest x-ray on admission had borderline cardiomegaly with pulmonary vascular congestion and mild interstitial edema. Follow-up chest x-ray on May 24 was suggestive of the same findings, no definite focal infiltrate, no pneumothorax. Head CT had no evidence of acute intracranial process. Repeat CT was done because of worsening confusion and she had a fall before admission. Again CT head no evidence of acute intracranial abnormalities. No change from previous study. Blood cultures without any growth Hip and pelvis x-ray had bilateral hip osteoarthritis without acute fracture. If symptoms continued a CT or MRI was recommended. Lower extremity CT on the right had severe osteomyelitis involving the second fifth digit with associated pathologic fracture of the second digit. She had a gouty arthropathy of the first metatarsal phalangeal joint. Erosion of the sesamoid of the first digits as well as the first metatarsal head suggestive of a osteomyelitis. - HOSPITAL COURSE Hospital Course: After consulting with wound, orthopedics, the patient was felt to have erosive gastritis and gouty arthropathy. Because of her falls and being found at home she was felt to have rhabdomyolysis. The joint had broken down and she was having cellulitis of the ruptured joint. She underwent debridement of the first metatarsal on May 24. Cultures ended up growing MSSA infection of the join t. Orthopedics did not feel that she needed more debridement or surgery and that the osteomyelitis was an over read. He would like to see her in follow-up in his office when she had left the hospital. During her stay COPD was stable. Her palliative care caregiver did come see her in the hospital and we discussed the details of her history and her slow but gentle deterioration. She is also been having multiple falls. Left hip pain was evaluated with x-rays and no new findings were found. Chronic kidney disease was stable, chronic A-fib was rate controlled. With her history of heart failure we judiciously she washed her IV fluids and there is no acute congestive heart failure. Her home CPAP mask was continued. Echocardiogram was done and showed a dilated RV with preserved function. Consistent with cor pulmonale caused by COPD. She received IV antibiotics, IV fluids. Stabilized for her acute problems. She will now need outpatient follow-up. [facility]hab to strengthen and improve her mobility. I explained to her that I want her to be able to transition from laying down, to sitting to standing and to be able to pivot and transfer to a chair or wheelchair. She was furthering along her advance care planning with regards to goals for the future. She would sit down and talk to her palliative care provider to decide when she should transition to only palliative care and then down the road hospice. I discharge temperature was 36.2. Heart rate 74. Respirations 22. 90% on 1 L. She is 5 feet 5 inches tall, 96 kg. A very interesting lady. Alert, oriented and still making her own decisions. Very sad entry. Diminished breath sounds at the bases but no increased respiratory effort. Heart murmur. And abdomen that was quite obese, with hypoactive bowel sounds, nontender. Extremities without edema. And very, very slow mobility. No focal deficits. Greater than 30 minutes was spent coordinating discharge to the detention facility - ALLERGIES Allergies/Adverse Reactions: Allergies Allergy/AdvReac Type Severity Reaction Status Date / Time alprazolam [From Xanax] Allergy Unknown Verified 11/19/21 11:37 azithromycin [From Zithromax] Allergy Unknown Verified 11/19/21 11:37 warfarin Allergy Rash Verified 11/19/21 11:37 - MEDICATIONS Home Medications: Ambulatory Orders Medication Instructions Recorded Confirmed Spironolactone 12.5 mg PO DAILY 12/06/13 05/19/22 Tiotropium Hazen [Spiriva] 2 puffs INH DAILY 12/06/13 05/19/22 Aspirin [Adult Low Dose Aspirin EC] 1 tab PO DAILY 07/12/17 05/19/22 Rivaroxaban [Xarelto] 15 mg PO QDDINNER 07/12/17 05/20/22 Furosemide [Lasix] 40 - 80 mg PO DAILY 07/25/18 05/20/22 Acetaminophen [Pain Relief Extra 1,000 mg PO BID MDD 3000 mg 07/17/21 05/19/22 Strength] Budesonide [Pulmicort] 0.5 mg INH BID PRN 07/17/21 05/20/22 traMADol [Ultram] 50 - 100 mg PO Q4-6H PRN 05/19/22 05/20/22 Fluconazole [Diflucan] 1 tablet PO Q7D 05/20/22 05/20/22 cephALEXin [Keflex] 500 mg PO TID 05/20/22 05/20/22 predniSONE [Deltasone] 10 mg PO DAILY 05/20/22 05/20/22 Albuterol 2.5 mg INH RTQ4H PRN ml 05/27/22 Budesonide [Pulmicort] 0.5 mg INH RTBID ml 05/27/22 Famotidine [Pepcid] 20 mg PO BID tab 05/27/22 Losartan Potassium [Cozaar] 100 mg PO DAILY #0 05/27/22 05/20/22 Metoprolol Succinate [Toprol Xl] 25 mg PO DAILY #0 05/27/22 05/19/22 Multivitamin W/Minerals [Theragran 1 tab PO DAILYWM tab 05/27/22 M] Spironolactone [Aldactone] 25 mg PO DAILY tab 05/27/22 allopurinoL [Zyloprim] 100 mg PO DAILY #0 05/27/22 05/20/22 - LABS Result Diagrams: 05/27/22 04:45 05/27/22 04:45"
== END 2022-05-27 14:15 | DRG 579 ==
LOC: EDUNIT# → ED 08:44 → MS2 16:29
PROVIDERS: ADMIT Internal Medicine; ATTEND Specialist
PROC: 0JBQ3ZZ Excision of Right Foot Subcutaneous Tissue and Fascia, Percutaneous Approach (ICD-10-PCS; principal; 2022-05-24)
DX: L03.115 Cellulitis of right lower limb (principal); G93.41 Metabolic encephalopathy; N17.9 Acute kidney failure, unspecified; I48.20 Chronic atrial fibrillation, unspecified; J96.12 Chronic respiratory failure with hypercapnia; J96.11 Chronic respiratory failure with hypoxia; I48.91 Unspecified atrial fibrillation; I13.0 Hypertensive heart and chronic kidney disease with heart failure and stage 1 through stage 4 chronic kidney disease, or unspecified chronic kidney disease; I50.32 Chronic diastolic (congestive) heart failure; G47.30 Sleep apnea, unspecified; M62.82 Rhabdomyolysis; D84.9 Immunodeficiency, unspecified; M86.9 Osteomyelitis, unspecified; R22.43 Localized swelling, mass and lump, lower limb, bilateral; B95.61 Methicillin susceptible Staphylococcus aureus infection as the cause of diseases classified elsewhere; M1A.9XX1 Chronic gout, unspecified, with tophus (tophi); Z66 Do not resuscitate; Z91.81 History of falling; S51.011A Laceration without foreign body of right elbow, initial encounter; J44.9 Chronic obstructive pulmonary disease, unspecified; N18.9 Chronic kidney disease, unspecified; G47.33 Obstructive sleep apnea (adult) (pediatric); I27.81 Cor pulmonale (chronic); Z95.0 Presence of cardiac pacemaker; I25.2 Old myocardial infarction; I25.10 Atherosclerotic heart disease of native coronary artery without angina pectoris; Z85.3 Personal history of malignant neoplasm of breast; Z79.01 Long term (current) use of anticoagulants; W07.XXXA Fall from chair, initial encounter; Y92.009 Unspecified place in unspecified non-institutional (private) residence as the place of occurrence of the external cause; Z99.81 Dependence on supplemental oxygen; Z95.5 Presence of coronary angioplasty implant and graft; S91.301A Unspecified open wound, right foot, initial encounter; S81.811A Laceration without foreign body, right lower leg, initial encounter; Z79.52 Long term (current) use of systemic steroids; G62.9 Polyneuropathy, unspecified; R32 Unspecified urinary incontinence; R21 Rash and other nonspecific skin eruption; R41.0 Disorientation, unspecified; Z20.822 Contact with and (suspected) exposure to COVID-19; M16.12 Unilateral primary osteoarthritis, left hip; R44.1 Visual hallucinations; F41.9 Anxiety disorder, unspecified; E66.01 Morbid (severe) obesity due to excess calories; Z68.33 Body mass index [BMI] 33.0-33.9, adult; R53.1 Weakness
CPT/HCPCS: 36415; 70450; 71045; 73502; 73701; 80048; 80053; 81003; 82550; 82607; 82746; 82803; 83036; 83605; 83690; 83735; 84550; 85025; 85610; 87040; 87635; 93005; 93306; 94640; 96361; 96365; 96366; 96368; 97163; 97166; 97530; 97535; 99284; 99285; A9270; J0690; J3370; J7512; J7626; Q9967; 80202; 81001; 87086

== ENCOUNTER 2022-06-04 08:35 | Outpatient (CLI) | payer MEDICARE, BC | END 2022-06-04 23:59 | disposition EMS.NT | LOC: EMS 08:35 | DX: Z03.89 Encounter for observation for other suspected diseases and conditions ruled out (principal) ==